=== PATIENT | male | born 1935 | race Caucasian/White ===

== ENCOUNTER 2016-12-19 11:16 | Emergency (ER) | payer MEDICARE, OTHER ==
[~2016-12-19] VITALS: Ht 172.7 cm; Wt 81.3 kg
[~2016-12-19 11:16] MED LIST: ACYC400T PO; ASPI-557 PO; CALC500T7 PO; DEXA4TAB PO; DONE5TAB PO; IPRA3AMP AEROSOL; OMEP40CA52 PO; POLY119P3 PO; QUET25TA PO; RANI150T7 PO; SERT50TA12 PO
[2016-12-19 11:20] VITALS: Ht 172.7 cm; Wt 81.3 kg
--- OUTSIDE RECORDS SUMMARY | 2016-12-19 11:21 | XMS REPORT | Continuity of Care Document ---
Author Author [facility] Organization [facility] Address Unknown Phone Unavailable Care Team Providers Care Gymnastic Coach Name Role Phone Primary Care Physician Unavailable Source Comments Some departments are not documenting in the electronic medical record. If you do not see the information that you expected, contact Release of Information in the Health Information Management department at [phone] for further assistance in locating additional records.[facility] Active Allergies and Adverse Reactions Not on File Current Medications Not on file Active Problems Not on file Social History Tobacco Use Types Packs/Day Years Used Date Never Assessed Plan of Care Health Maintenance Due Date Last Done Comments Physical (Comprehensive) 1942 Exam Pertussis Vaccine 1946 Tetanus Vaccine 01/31/1952 Shingles Vaccine 1995 Prevnar/Pneumovax (#1) 01/31/2000 Influenza Vaccine 05/31/2016 Results from Last 3 Months Not on file
--- OUTSIDE RECORDS SUMMARY | 2016-12-19 11:22 | XMS REPORT | Continuity of Care Document ---
Author Author [facility] Organization [facility] Address Unknown Phone Unavailable Allergies Active Description Code Type Severity Reaction Onset Reported/Identified Relationship to Patient Clinical Status Yes penicillins NKMA Unknown N/A 04/25/2015 Medications Problems Procedures Results Test Result Range Comprehensive Metabolic Panel (CMP) - 10/30/16 18:12 Albumin 3.3 g/dL 3.5-4.8 Alkaline Phosphatase 89 U/L 26-104 ALT (SGPT) 15 U/L 17-63 Anion Gap 12 NA 3-20 AST (SGOT) 19 U/L 15-41 Bilirubin Total 0.8 mg/dL 0.2-1.2 BUN 34 mg/dL 4-20 Calcium 8.4 mg/dL 8.6-10.0 Chloride 111 mEq/L 99-109 CO2 22 mEq/L 22-32 Creatinine 3.87 mg/dL 0.64-1.27 Globulin 2.4 g/dL 1.9-4.3 Glucose 111 mg/dL 70-100 Potassium 4.3 mEq/L 3.6-5.1 Protein 5.7 g/dL 6.1-7.9 Sodium 145 mEq/L 136-144 CBC With Platelet and Differential - 10/30/16 18:12 Absolute Basophils 0.01 10*3/uL 0.00- 0.20 Absolute Eosinophils 0.04 10*3/uL 0.00- 0.50 Absolute Lymphocytes 0.64 10*3/uL 0.80- 3.30 Absolute Monocytes 0.37 10*3/uL 0.30- 1.00 Absolute Neutrophils 1.08 10*3/uL 1.90- 7.00 Basophils 1 % 0-2 Differential Scanned Slide NA Eosinophils 2 % 0-4 HCT 27.1 % 42.0-52.0 HGB 8.6 g/dL 14.0-18.0 Immature Granulocytes 0.9 % 0.0-1.0 Lymphocytes 30 % 20-46 MCH 33.7 pg 27.0-32.0 MCHC 31.7 g/dL 32.0-36.0 MCV 106.3 fL 82.0-99.0 Monocytes 17 % 4-11 Neutrophils 50 % 51-75 Nucleated RBC Automated 0.0 /100 WBC Platelet Count 75 K/uL 150-400 RBC 2.55 10*6/uL 4.60-6.20 RDW 15.2 % 11.5-14.5 Schistocytes Occasional NA Tear Drop Cells Occasional NA WBC 2.2 K/uL 4.8-10.8 eGFR - 10/30/16 18:12 eGFR 15 NA >60 Magnesium - 10/30/16 18:12 Magnesium 2.2 mg/dL 1.8-2.5 Phosphorus - 10/30/16 18:12 Phosphorus 5.1 mg/dL 2.4-4.7 Troponin - 10/30/16 18:12 Troponin <0.05 ng/mL <0.06 Urinalysis with reflex microscopic - 10/30/16 20:02 Appearance Clear NA Bilirubin Negative NA Negative Blood Negative NA Negative Color Straw NA Glucose, Urine Negative Negative Ketones Negative Negative Leukocyte Esterase Negative NA Negative Nitrites Negative NA Negative pH 7.0 NA 5.0-8.0 Protein Pos 1+ NA Negative Specific [place] 1.010 NA 1.003-1.030 UA Collection type Clean Catch NA Urobilinogen Negative mg/dL <1.0 Urine Microscopic - 10/30/16 20:02 Bacteria None Seen NA Epithelial Cells None Seen /HPF RBC, Urine 0 /HPF 0-2 WBC, Urine 0 /HPF 0-4 Sodium Random Urine - 10/30/16 20:02 Sodium Random Urine 92 mEq/L Creatinine Random Urine - 10/30/16 20:02 Creatinine Random Urine 80 mg/dL Encounters ACCT No. Visit Date/Time Discharge Status Pt. Type Provider Facility Loc./Unit Complaint [id number] 05/04/2015 08:58:00 2014 23:59:00 DIS Outpatient Swapnil Osborn [facility] ENT RCK 3 WKS THROAT AND EARS [id number] 04/25/2015 13:33:00 2014 23:59:00 DIS Outpatient Fracisco Vázquez [facility] ENT Csore throat [id number] 04/11/2015 11:29:00 2014 23:59:00 DIS Outpatient Hilaria Perla [facility] Audio Hilaria - Medicare - [place] [id number] 04/11/2015 09:53:00 2014 23:59:00 DIS Outpatient Swapnil Osborn [facility] ENT RIGHT EAR EFFUSION AND SORE THROAT WITH VOCALS [id number] 10/30/2016 17:28:00 Document Registration
--- OUTSIDE RECORDS SUMMARY | 2016-12-19 11:22 | XMS REPORT | Referral Summary ---
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 Discharge Disposition: 01-Home or Self Care Attending Physician: Maxx Hart MD Admitting Physician: Maxx Hart MD Vital Signs Most recent to 1 oldest [Reference Range]: Temperature Oral 36.7 degC [35.8-37.3 degC] (10/30/16 5:32 PM) Peripheral Pulse 99 bpm Rate [60-100 bpm] (10/30/16 9:56 PM) Heart Rate Monitored 82 bpm [60-100 bpm] (10/30/16 9:15 PM) Respiratory Rate 18 br/min [14-20 br/min] (10/30/16 9:56 PM) Blood Pressure 169/114 mmHg [90-140/60-90 mmHg] *HI* (10/30/16 9:56 PM) Mean Arterial 143 mmHg Pressure, Cuff (10/30/16 9:15 PM) SpO2 100 % (10/30/16 9:56 PM) Problem List Condition Effective Dates Status Health Status Informant Multiple Active patient myeloma(Confirmed) Allergies, Adverse Reactions, Alerts Substance Reaction Severity Status penicillins Unknown Active Medications ACYCLOVIR 400 MG TABS 0 Refill(s) Start Date: 04/11/15 Status: Ordered Radha Oral, 0 Refill(s) Start Date: 04/25/15 Status: Ordered Aspir 81 81 mg, Oral, Daily, 0 Refill(s) Start Date: 10/12/15 Status: Ordered DEXAMETHASONE 4 MG TABS 0 Refill(s) Start Date: 04/11/15 Status: Ordered OMEPRAZOLE 40 MG CPDR 0 Refill(s) Start Date: 04/11/15 Status: Ordered omeprazole 40 mg oral delayed release capsule See Instructions, TAKE 1 CAPSULE BY MOUTH TWICE DAILY, # 60 caps, 11 Refill(s), eRx: [id number], TAKE 1 CAPSULE BY MOUTH TWICE DAILY Start Date: 11/14/15 Status: Ordered POMALYST 1 MG CAPS 0 Refill(s) Start Date: 04/11/15 Status: Ordered Results Hematology Most recent to 1 oldest [Reference Range]: WBC [4.8-10.8 2.2 10*3/uL 10*3/uL] *LOW* (10/30/16 6:12 PM) RBC [4.60-6.20] 2.55 *LOW* (10/30/16 6:12 PM) Hgb [14.0-18.0 8.6 gm/dL gm/dL] *LOW* (10/30/16 6:12 PM) Hct [42.0-52.0 %] 27.1 % *LOW* (10/30/16 6:12 PM) MCV [82.0-99.0 fL] 106.3 fL *HI* (10/30/16 6:12 PM) MCH [27.0-32.0 pg] 33.7 pg *HI* (10/30/16 6:12 PM) MCHC [32.0-36.0 31.7 gm/dL gm/dL] *LOW* (10/30/16 6:12 PM) RDW [11.5-14.5 %] 15.2 % *HI* (10/30/16 6:12 PM) Platelet [150-400 75 10*3/uL 10*3/uL] *LOW* (10/30/16 6:12 PM) Immature 0.9 % Granulocytes (10/30/16 6:12 PM) [0.0-1.0 %] Neutrophils [51-75 50 % %] *LOW* (10/30/16 6:12 PM) Lymphocytes [20-46 30 % %] (10/30/16 6:12 PM) Monocytes [4-11 %] 17 % *HI* (10/30/16 6:12 PM) Eosinophils [0-4 %] 2 % (10/30/16 6:12 PM) Basophils [0-2 %] 1 % (10/30/16 6:12 PM) Neutro Absolute 1.08 [1.90-7.00] *LOW* (10/30/16 6:12 PM) Lymph Absolute 0.64 [0.80-3.30] *LOW* (10/30/16 6:12 PM) [place] Absolute 0.37 [0.30-1.00] (10/30/16 6:12 PM) Eos Absolute 0.04 [0.00-0.50] (10/30/16 6:12 PM) Baso Absolute 0.01 [0.00-0.20] (10/30/16 6:12 PM) Tear Cell Occasional *ABN* (10/30/16 6:12 PM) Schistocyte Occasional *ABN* (10/30/16 6:12 PM) Nucleated RBC 0.0 /100 WBC Automated [0 /100 (10/30/16 6:12 PM) WBC] Differential Scanned Slide (10/30/16 6:12 PM) Chemistry Most recent to 1 oldest [Reference Range]: Sodium Lvl [136-144 145 mEq/L mEq/L] *HI* (10/30/16 6:12 PM) Potassium Lvl 4.3 mEq/L [3.6-5.1 mEq/L] (10/30/16 6:12 PM) Chloride [99-109 111 mEq/L mEq/L] *HI* (10/30/16 6:12 PM) CO2 [22-32 mEq/L] 22 mEq/L (10/30/16 6:12 PM) AGAP [3-20] 12 (10/30/16 6:12 PM) BUN [4-20 mg/dL] 34 mg/dL *HI* (10/30/16 6:12 PM) Glucose Lvl [70-100 111 mg/dL mg/dL] *HI* (10/30/16 6:12 PM) Creatinine Lvl 3.87 mg/dL [0.64-1.27 mg/dL] *HI* (10/30/16 6:12 PM) eGFR [>60] 15 1 *ABN* (10/30/16 6:12 PM) Calcium Lvl 8.4 mg/dL [8.6-10.0 mg/dL] *LOW* (10/30/16 6:12 PM) Albumin Lvl [3.5-4.8 3.3 gm/dL gm/dL] *LOW* (10/30/16 6:12 PM) Total Protein 5.7 gm/dL [6.1-7.9 gm/dL] *LOW* (10/30/16 6:12 PM) Globulin [1.9-4.3 2.4 gm/dL gm/dL] (10/30/16 6:12 PM) ALT [17-63 U/L] 15 U/L *LOW* (10/30/16 6:12 PM) AST [15-41 U/L] 19 U/L (10/30/16 6:12 PM) Alk Phos [26-104 89 U/L U/L] (10/30/16 6:12 PM) Bili Total [0.2-1.2 0.8 mg/dL 2 mg/dL] (10/30/16 6:12 PM) Magnesium Lvl 2.2 mg/dL [1.8-2.5 mg/dL] (10/30/16 6:12 PM) Phosphorus [2.4-4.7 5.1 mg/dL 3 mg/dL] *HI* (10/30/16 6:12 PM) Troponin [<0.06 <0.05 ng/mL ng/mL] (10/30/16 6:12 PM) 1Result Comment: Multiply eGFR results by 1.21 for race. 2Result Comment: Naproxen, specifically the metabolite O-desmethylnaproxen, may cause spurious elevation in Total Bilirubin levels. 3Result Comment: High dosages of liposomal Amphotericin B (AmBisome) therapy or other drug preparations that use a liposomal envelope to facilitate drug delivery may cause falsely elevated results for phosphorus. Urinalysis Most recent to 1 oldest [Reference Range]: UA Color Straw (10/30/16 8:02 PM) UA Appear Clear (10/30/16 8:02 PM) UA pH [5.0-8.0] 7.0 (10/30/16 8:02 PM) UA Leuk Est Negative [Negative] (10/30/16 8:02 PM) UA Nitrite Negative [Negative] (10/30/16 8:02 PM) UA Protein Pos 1+ [Negative] *ABN* (10/30/16 8:02 PM) UA Glucose Negative [Negative] (10/30/16 8:02 PM) UA Ketones Negative [Negative] (10/30/16 8:02 PM) UA Urobilinogen Negative [<1.0] (10/30/16 8:02 PM) UA Bili [Negative] Negative (10/30/16 8:02 PM) UA Blood [Negative] Negative (10/30/16 8:02 PM) UA Spec Grav 1.010 [1.003-1.030] (10/30/16 8:02 PM) Type Clean Catch (10/30/16 8:02 PM) UA WBC [0-4] 0-2 (10/30/16 8:02 PM) UA RBC [0-2] 0-2 (10/30/16 8:02 PM) Epithelial Cells None Seen (10/30/16 8:02 PM) UA Bacteria None Seen (10/30/16 8:02 PM) Immunizations No data available for this section Procedures Procedure Date Related Diagnosis Body Site Aspiration Bone Marrow1 10/12/15 Biopsy Bone Marrow2 10/12/15 Bone marrow transplant clinic 12/10/12 Prostate 2003 Vasectomy 1960 Tonsillectomy 194 Appendectomy Colonoscopy Gallbladder Skin cancer 1auto-populated from documented surgical case 2auto-populated from documented surgical case Social History Social History Type Response Smoking Status Never smoker Assessment and Plan No data available for this section
--- OUTSIDE RECORDS SUMMARY | 2016-12-19 11:22 | XMS REPORT | Continuity of Care Document ---
Author Author [facility] Organization [facility] Address Unknown Phone Unavailable Support Name Relationship Address Phone AQUILINO DOBBINS MD Caregiver [address] [place] [address] [place] [address] Unavailable AQUILINO DOBBINS MD Caregiver [address] [place] [address] [place] [address] Unavailable MORENA ESPOSITO MD Caregiver [address] [place] [address] Unavailable VINI CABEZAS Caregiver [address] [place] [address] Unavailable CATHY CABRERA MD Caregiver [address] [place] [address] [place] [address] Unavailable VEL KELLY COUSIN Next Of Kin Unknown [phone] Insurance Providers Guarantor Maggy Mendoza Address [address] [place] [address] Email [email or web address] Payer Medicare Policy Number [id number] Subscriber's Name Maggy Mendoza Relationship 18 Self Payer Other A Insurance Policy Number [id number] Subscriber's Name Maggy Mendoza Relationship 18 Self Group Number [id number] Advance Directives Directive Response Recorded Date/Time Advanced Directives Type None 10/10/16 9:55am Ordered Resuscitation Status Full Code 10/10/16 11:37am Resuscitation Documents on File Y horace 10/14/16 7:02pm DPOA for Healthcare Only Y daughter 10/14/16 7:02pm Living Will Yes 10/14/16 7:02pm Problems Active Problems Medical Problem Onset Date Status Acute kidney failure Unknown Acute Dementia Unknown Chronic Fever Unknown Resolved Multiple myeloma Unknown Chronic Non-ST elevation myocardial infarction (NSTEMI) due to mismatch of myocardial oxygen supply and demand Unknown Acute Pancytopenia Unknown Acute Pulmonary edema Unknown Resolved Respiratory failure with hypoxia ~09/2016 Resolved Shock liver Unknown Acute Past Problems Medical Problem Onset Date Septic shock Unknown Medications Current Home Medications Medication Dose Units Route Directions Days Qty Instructions Start Date Acyclovir 400 Mg Tablet 400 Mg Oral Daily for Herpes 10/10/16 Aspirin (Aspir 81) 81 Mg Tablet.dr 81 Mg Oral Daily 10/10/16 Calcium Carbonate (Tums) 200 Mg Tab.chew 400 Mg Oral Daily Dexamethasone 4 Mg Tablet 2 Tab Oral Weekly for Mm 2 Tablet Donepezil Hcl (Aricept) 5 Mg Tablet 5 Mg Oral Bedtime 10/10/16 Ipratropium/Albuterol Sulfate (Iprat-Albut 0.5-3(2.5) Mg/3 Ml) 3 Ml Ampul.neb 3 Ml Aerosol Tx. Every 4 Hours as needed for Shortness Of Air/Wheezing 1 Box 10/16/16 Omeprazole 40 Mg Capsule.dr 4 Mg Oral Before Breakfast 10/10/16 Polyethylene Glycol 3350 (Miralax) 119 Gm Powder 17 G Oral Daily 10/10/16 Quetiapine Fumarate (Seroquel) 25 Mg Tablet 12.5 Mg Oral Three Times A Day 10/10/16 Ranitidine Hcl 150 Mg Tablet 150 Mg Oral Bedtime 30 Tablet Take 1 tablet, by mouth, 1 time a day (at BEDTIME). 10/16/16 Sertraline Hcl (Sertraline) 50 Mg Tablet 75 Mg Oral Bedtime 10/10 Past Home Medications Medication Directions Ordered Status Ranitidine Hcl 300 Mg Capsule, 300 Mg Oral Every Evening 10/10/16 Discontinued Social History Social History Problem Response Recorded Date/Time Onset Date Status Reason for Hospitalization Septic shock 10/16/2016 4:14pm Not Applicable Not Applicable Has the pt used tobacco in the last 12 months No 10/10/2016 3:38pm Not Applicable Not Applicable Query Response Start Date Stop Date Smoking Status Never smoker Hospital Discharge Instructions Instructions: Care Instructions: Reason for Hospitalization: Septic shock I was in the hospital because (patient own words): confused Discharge Diet: Regular Discharge Activity: As tolerated Follow Up Appointments: Dr Mcnamara on 10/19 Dr Esposito on 10/22 Dr Live in 1 week Pending Lab / Results: No Pending Lab Wound/Incision Care: n/a Pain Management/Treatment: Tylenol as needed Expected Signs/Symptoms: Improvement of functional status Notify Physician If: Temp >100.4 During Business Hours:: Nursing staff at [facility] After Business Hours:: Nursing staff at [facility] Condition at time of discharge: Good Plan of Care Discharge Date 10/16/16 4:30pm Disposition 03 TO [facility] NOT [facility] (SNF) Instructions/Education Provided Septic Shock Prescriptions See Medication Section Additional Instructions/Education Ranitidine decreased due to your kidney status (need less with the creatinine increased). Care Plan and Goals See Discharge Instructions Section Functional Status Query Response Date Recorded Mobility Status Transfer w/assist October 16, 2016 4:14pm Assistive Devices None October 16, 2016 4:14pm Activity Limitations Weakness October 16, 2016 4:14pm Feeding Ability Assist October 16, 2016 4:14pm Toileting Ability Assist October 16, 2016 4:14pm Grooming Ability Assist October 16, 2016 4:14pm Dressing Ability Assist October 16, 2016 4:14pm Driving Ability Dependent October 16, 2016 4:14pm Housework Ability Dependent October 16, 2016 4:14pm Meal Preparation Ability Dependent October 16, 2016 4:14pm Stair Climbing Ability Dependent October 16, 2016 4:14pm Ability to complete ADL's impeded by Change in Behavior Impaired Mobility Change in Cognition October 16, 2016 4:14pm Cognitive/Perceptual Impairments Chronic confusion October 16, 2016 4:14pm Visual Assistive Devices Glasses October 13, 2016 1:28pm Hearing Assistive Devices Left hearing aid Right hearing aid October 13, 2016 1:28pm Preferred Method of Learning Reading October 13, 2016 1:28pm Allergies, Adverse Reactions, Alerts Allergen Type Severity Reaction Status Last Updated Penicillin Allergy Unknown Active 10/10/16 Immunizations Query Response on File Recorded Date/Time Hx Influenza Vaccination Y 07/201610/10/16 1:41pm Hx Influenza Vaccination Y 07/201610/10/16 1:41pm Vital Signs Acute Vital Signs Vital Response Date/Time Temperature (Fahrenheit) 97.9 deg F (96.8 - 99.1) 10/16/2016 7:40am Temperature (Calculated Celsius) 36.85211 degrees C (36.0 - 37.3) 10/16/2016 7:40am Pulse Rate (adult) 73 bpm (60 - 100) 10/16/2016 10:36am Respiratory Rate 18 breaths/min (10 - 20) 10/16/2016 10:36am O2 Sat by Pulse Oximetry 93 % (90 - 100) 10/16/2016 10:36am Oxygen Delivery Method Room Air 10/15/2016 9:21pm Oxygen Delivery Method Room Air 10/16/2016 10:36am Oxygen Flow Rate 1.00 L/min 10/15/2016 7:57am Blood Pressure 145/80 mm Hg 10/16/2016 10:36am Blood Pressure Source Automatic Cuff 10/16/2016 10:36am Height (Feet) 5 feet 10/16/2016 2:46pm Height (Inches) 11.00 inches 10/16/2016 2:46pm Weight (Kilograms) 85.100 kg 10/16/2016 10:22am Body Mass Index (BMI) 26.3 10/10/2016 1:39pm Results Laboratory Results Test Name Result Units Flags Reference Collection Date/Time Result Date/ Time Comments White Blood Count 7.1 T/MM3 4.5-11.0 10/16/2016 4:10/16/2016 5: 17am Red Blood Count 2.52 M/MM3 L 4.50-5.90 10/16/2016 4:10/16/2016 5: 17am Hemoglobin 8.4 GM/DL L 13.5-17.5 10/16/2016 4:10/16/2016 5:17am Hematocrit 27.0 % L 41-53 10/16/2016 4:10/16/2016 5:17am Mean Corpuscular Volume 107.1 UM3 H 80-100 10/16/2016 4:10/16/2016 5:17am Mean Corpuscular Hemoglobin 33.3 UUG 26-34 10/16/2016 4:2016 5:17am Mean Corpuscular Hemoglobin Concent 31.1 GM/DL 31-37 10/16/2016 4:10/16/2016 5:17am RDW Standard Deviation 55.7 FL H 36.9-50.2 10/16/2016 4:10/16/2016 5:17am Platelet Count 45 T/MM3 L 130-400 10/16/2016 4:10/16/2016 5:17am Mean Platelet Volume 12.0 UM3 9.4-12.4 10/10/2016 10:10/10/2016 10 :32am Neutrophils (%) (Auto) 73.8 % H 33-66 10/10/2016 10:10/10/2016 10: 32am Lymphocytes (%) (Auto) 15.8 % L 23-45 10/10/2016 10:10/10/2016 10: 32am Monocytes (%) (Auto) 6.7 % 0-9.0 10/10/2016 10:10/10/2016 10:32am Eosinophils (%) (Auto) 1.0 % 0-4 10/10/2016 10:10/10/2016 10:32am Basophils (%) (Auto) 0.0 % 0-2 10/10/2016 10:10/10/2016 10:32am Immature Granulocyte % (Auto) 2.7 % H 0.0-0.5 10/10/2016 10:2016 10:32am Absolute Neutrophils (auto) 2.2 T/MM3 1.8-7.7 10/10/2016 10:2016 10:32am Absolute Lymphocytes (auto) 0.5 T/MM3 L 1-4.8 10/10/2016 10:2016 10:32am Absolute Monocytes (auto) 0.2 T/MM3 0-0.8 10/10/2016 10:2016 10:32am Absolute Eosinophils (auto) 0.0 T/MM3 0-0.5 10/10/2016 10:2016 10:32am Absolute Basophils (auto) 0.0 T/MM3 0-0.2 10/10/2016 10:2016 10:32am Absolute Immature Granulocyte (auto 0.08 T/MM3 H 0.00-0.03 10/10/2016 10: 10/10/2016 10:32am Neutrophils % (Manual) 78.0 % H 33-66 10/16/2016 4:10/16/2016 6: 16am Band Neutrophils % 2.0 % 0-6 10/16/2016 4:10/16/2016 6:16am Lymphocytes % (Manual) 15.0 % L 23-45 10/16/2016 4:10/16/2016 6: 16am Monocytes % (Manual) 5.0 % 0-9.0 10/16/2016 4:10/16/2016 6:16am Band Neutrophils # 0.1 T/MM3 10/16/2016 4:28am 10/16/2016 6:16am Absolute Neutrophils (Manual) 5.5 T/MM3 1.8-7.7 10/16/2016 4:28am 10/16 6:16am Lymphocytes # (Manual) 1.1 T/MM3 1-4.8 10/16/2016 4:28am 10/16/2016 6: 16am Monocytes # (Manual) 0.4 T/MM3 0-0.8 10/16/2016 4:28am 10/16/2016 6: 16am Red Cell Morphology Comment ABNORMAL 10/16/2016 4:28am 10/16/2016 6 :16am Anisocytosis 1+ 10/16/2016 4:28am 10/16/2016 6:16am Poikilocytosis 1+ 10/16/2016 4:28am 10/16/2016 6:16am Ovalocytes 1+ 10/15/2016 4:56am 10/15/2016 6:14am Tear Drop Cells 1+ 10/15/2016 4:56am 10/15/2016 6:14am Schistocytes 1+ 10/14/2016 5:19am 10/14/2016 6:10am Icterus Index < 2 0-7 10/16/2016 4:10/16/2016 5:29am Chemistry Specimen Hemolysis 25 0-25 10/16/2016 4:2810/16/2016 5: 29am 0-25: Specimen Exhibited No Hemolysis. Turbidity < 20 0-20 10/16/2016 4:10/16/2016 5:29am Sodium Level 141 MEQ/L 134-144 10/16/2016 4:10/16/2016 5:29am Potassium Level 3.8 MEQ/L 3.6-5 10/16/2016 4:10/16/2016 5:29am Chloride Level 105 MEQ/L 98-107 10/16/2016 4:10/16/2016 5:29am Carbon Dioxide Level 26 MEQ/L 22-30 10/16/2016 4:2810/16/2016 5: 29am Anion Gap 10 MEQ/L 5-15 10/16/2016 4:10/16/2016 5:29am Blood Urea Nitrogen 67.0 MG/DL *H 9-20 10/16/2016 4:10/16/2016 5: 31am Creatinine 3.6 MG/DL H 0.8-1.5 10/16/2016 4:10/16/2016 5:29am BUN/Creatinine Ratio 19 RATIO 6-26 10/16/2016 4:10/16/2016 5:29am Glomerular Filtration Rate Calc 16 10/16/2016 4:10/16/2016 5: 29am Glucose Level 135 MG/DL H 75-110 10/16/2016 4:10/16/2016 5:29am Calculated Osmolality 292 MOSM/KG H 261-280 10/16/2016 4:2016 5:29am Calcium Level 7.5 MG/DL L 8.4-10.2 10/16/2016 4:10/16/2016 5:29am Phosphorus Level 3.9 MG/DL 2.5-4.5 10/14/2016 5:19am 10/14/2016 5:58am Total Bilirubin 0.70 MG/DL 0.20-1.30 10/15/2016 4:56am 10/15/2016 5: 35am Alkaline Phosphatase 80 U/L 38-126 10/15/2016 4:56am 10/15/2016 5:35am Total Protein 5.2 G/DL L 6.3-8.2 10/15/2016 4:56am 10/15/2016 5:35am Albumin 3.3 G/DL L 3.5-5.0 10/15/2016 4:56am 10/15/2016 5:35am Globulin 1.9 G/DL L 2.4-3.6 10/15/2016 4:56am 10/15/2016 5:35am Albumin/Globulin Ratio 1.7 RATIO 1.1-2.2 10/15/2016 4:56am 10/15/2016 5 :35am Aspartate Amino Transf (AST/SGOT) 52 U/L D 17-59 10/15/2016 4:56am 2016 5:36am Alanine Aminotransferase (ALT/SGPT) 49 U/L 21-72 10/15/2016 4:56am 5:35am Troponin I 0.357 ng/ml H 0-0.12 10/11/2016 8:08pm 10/11/2016 8:43pm Troponin values greater than 0.120 ng/ml are considered a critical value. Troponin values with a difference of 55% increase from orginal troponin value represent a true biological DELTA value. (%increase Calc=Orginal Troponin value, divided by subsequent Troponin value, multiplied by 100) [id number]-Type Natriuretic Peptide 5980 PG/ML H 0-175 10/14/2016 5:10/14/2016 5:48am Rule in cut points: <50 years old=450; 50-75 years old=900; >75 years old=1800; When utilizing ProBNP rule-in cut points, adjustment for impaired renal function is typically not required. Magnesium Level 2.1 MG/DL 1.6-2.3 10/14/2016 5:10/14/2016 5:39am Uric Acid 8.6 MG/DL H 3.5-8.5 10/14/2016 5:10/14/2016 10:31am Plasma Lactate 1.7 MMOL/L 0.6-2.2 10/11/2016 1:32am 10/11/2016 1:52am Procalcitonin 3.69 NG/ML *H 10/13/2016 5:06am 10/13/2016 6:49am PCT </ =0.5 ng/mL - sepsis not likely; PCT >0.5 and </=2 ng/mL - sepsis possible; PCT >2 ng/mL - sepsis likely; PCT >/=10 ng/mL - systemic inflammatory response - sepsis or septic shock highly indicated. Random Vancomycin Level 14.93 UG/ML 0-40 10/13/2016 2:52pm 10/13/2016 3 :23pm Immunoglobulin G < 270.00 MG/DL L 700-1600 10/14/2016 5:10/14/2016 10:21am Immunoglobulin A < 40.00 MG/DL L 70-400 10/14/2016 5:10/14/2016 10: 21am Immunoglobulin M < 25.00 MG/DL L 40-230 10/14/2016 5:10/14/2016 10: 21am Oxygen Delivery Method (LAB) SIMPLE MASK, LITERS 10/11/2016 1:32am 10/11/2016 1:46am Venous Blood pH 7.380 7.31-7.41 10/11/2016 1:32am 10/11/2016 1:46am Venous Blood Partial Pressure CO2 40 MMHG 40-52 10/11/2016 1:32am 10/11 1:46am Venous Blood Partial Pressure O2 50 MMHG 40-52 10/11/2016 1:32am 2016 1:46am Venous Blood HCO3 24 MEQ/L 22-26 10/11/2016 1:32am 10/11/2016 1:46am Venous Blood Total Carbon Dioxide 24.9 MEQ/L 10/11/2016 1:32am 2016 1:46am Venous Blood Base Excess -1.3 MMOL/L -2.0-2.0 10/11/2016 1:32am 2016 1:46am Venous Blood Oxygen Saturation 84.0 % 10/11/2016 1:32am 10/11/2016 1: 46am Blood Gas Oxygen Liter Flow 9.0 10/11/2016 1:32am 10/11/2016 1: 46am Adenovirus (PCR) NEGATIVE NEGATIVE 10/10/2016 1:34pm 10/10/2016 3: 01pm Coronavirus Type 229E (PCR) NEGATIVE NEGATIVE 10/10/2016 1:34pm 10/10 3:01pm Coronavirus Type HKU1 (PCR) NEGATIVE NEGATIVE 10/10/2016 1:34pm 10/10 3:01pm Coronavirus Type NL63 (PCR) NEGATIVE NEGATIVE 10/10/2016 1:34pm 10/10 3:01pm Coronavirus Type OC43 (PCR) NEGATIVE NEGATIVE 10/10/2016 1:34pm 10/10 3:01pm Human Metapneumovirus (PCR) NEGATIVE NEGATIVE 10/10/2016 1:34pm 10/10 3:01pm Enterovirus/Rhinovirus (PCR) NEGATIVE NEGATIVE 10/10/2016 1:34pm 07/2017 3:01pm Influenza Virus Type A (PCR) NEGATIVE NEGATIVE 10/10/2016 1:34pm 07/2017 3:01pm Influenza Virus Type B (PCR) NEGATIVE NEGATIVE 10/10/2016 1:34pm 07/2017 3:01pm Parainfluenza Type 1 (PCR) NEGATIVE NEGATIVE 10/10/2016 1:34pm 2016 3:01pm Parainfluenza Type 2 (PCR) NEGATIVE NEGATIVE 10/10/2016 1:34pm 2016 3:01pm Parainfluenza Type 3 (PCR) NEGATIVE NEGATIVE 10/10/2016 1:34pm 2016 3:01pm Parainfluenza Type 4 (PCR) NEGATIVE NEGATIVE 10/10/2016 1:34pm 2016 3:01pm Respiratory Syncytial Virus (PCR) NEGATIVE NEGATIVE 10/10/2016 1:34pm 10/10/2016 3:01pm Bordetella parapertussis DNA (PCR) NEGATIVE NEGATIVE 10/10/2016 1: 34pm 10/10/2016 3:01pm Chlamydia pneumoniae DNA (PCR) NEGATIVE NEGATIVE 10/10/2016 1:34pm 3:01pm Mycoplasma pneumoniae (PCR) NEGATIVE NEGATIVE 10/10/2016 1:34pm 10/10 3:01pm Urine Collection Type MARY INDWELLING 10/14/2016 11:28am 2016 11:50am Urine Color YELLOW YELLOW 10/14/2016 11:28am 10/14/2016 11:50am Urine Turbidity CLEAR CLEAR 10/14/2016 11:28am 10/14/2016 11:50am Urine Specific [place] 1.010 L 1.015-1.025 10/14/2016 11:28am 2016 11:50am Urine pH 5.5 5.0-8.0 10/14/2016 11:28am 10/14/2016 11:50am Urine Leukocyte Esterase NEGATIVE NEGATIVE 10/14/2016 11:28am 2016 11:50am Urine Nitrite NEGATIVE NEGATIVE 10/14/2016 11:28am 10/14/2016 11: 50am Urine Protein TRACE A NEGATIVE 10/14/2016 11:28am 10/14/2016 11:50am Urine Glucose (UA) NEGATIVE NEGATIVE 10/14/2016 11:28am 10/14/2016 11 :50am Urine Ketones NEGATIVE NEGATIVE 10/14/2016 11:28am 10/14/2016 11: 50am Urine Urobilinogen 0.2 EU/DL NORMAL 10/14/2016 11:28am 10/14/2016 11: 50am Urine Bilirubin NEGATIVE NEGATIVE 10/14/2016 11:28am 10/14/2016 11: 50am Urine Blood 3+ A NEGATIVE 10/14/2016 11:28am 10/14/2016 11:50am Urine WBC NONE SEEN /HPF 0-5 10/14/2016 11:28am 10/14/2016 11:58am Urine RBC 5-10 /HPF H 0-3 10/14/2016 11:28am 10/14/2016 11:58am Urine Squamous Epithelial Cells 0-5 10/10/2016 10:26am 10/10/2016 10:44am Urine Bacteria NEGATIVE NEGATIVE 10/14/2016 11:28am 10/14/2016 11: 58am Urine Amorphous Urates FEW 10/14/2016 11:28am 10/14/2016 11:58am Urine Culture Indicated CULT NOT INDICATED 10/14/2016 11:28am 10/14 11:58am Serum Total Protein 4.7 g/dL L 6.0-7.6 10/15/2016 4:50am 10/15/2016 1: 49pm Immunoelectrophoresis, no IMQ performed at [facility], [address] [place] [address] Fringe Weaver Shana Fung DO Free Arkoma/Lambda Light Chain Ratio >1000 H 10/15/2016 4:56am 2016 1:48pm Reference Range: 0.2600-1.65 Test Performed by: [place] [address] Control Technician: Timmy Nguyen II, M.D., Ph.D. Immunoglobulin Free Light Chains, Serum performed at [facility], [address] [place] [address] Fringe Weaver Patrick Archer MD Free Arkoma Light Chains 343 mg/dL H 10/15/2016 4:56am 10/16/2016 1: 48pm Reference Range: 0.3300-1.94 Free Lambda Light Chains 0.1510 mg/dL L 10/15/2016 4:56am 10/16/2016 1 :48pm Reference Range: 0.5700-2.63 Microbiology Results Procedure Source Organism/Result Collection Date/Time Result Date/Time Result Status Blood Culture Peripheral/Iv Start NO GROWTH AFTER 5 DAYS 10/10/2016 10: 25am 10/15/2016 10:28am Final Blood Culture Cath/Port/Line/Picc NO GROWTH AFTER 5 DAYS 10/10/2016 2:13pm 10/15/2016 2:44pm Final Name: MAGGY MENDOZA Unit #: [id number] : 1935 Sex: M Admit Date: 10/10/16 Loc / Svc: MED Discharge Date: DIAGNOSTIC IMAGING REPORT [id number]: ITS.REASON: sob, edema PROCEDURE: CHEST 2-VIEWS UPRIGHT (PA \T\ LAT) Encounter: Initial COMPARISON: October 12, 2016 FINDINGS: Right IJ port. Increasing small bilateral effusions. Slight worsening in right lower lobe airspace disease. No pneumothorax. Heart size and mediastinal contours are stable. Pulmonary vascularity remains mildly congested. Impression: Slight increase in small pleural effusions with stable mild pulmonary edema. . Procedures Procedure Status Date Provider(s) Mri brain stem w/o dye Completed 08/02/16 GADAVIST 10ML SDV - Contrast,Gadavist 10ml Completed 08/02/16 Mri brain stem w/o dye Completed 09/06/16 Encounters Encounter Location Arrival/Admit Date Discharge/Depart Date Attending Provider Discharged Inpatient [facility] 10/10/16 11:33am 10/16/16 4:30pm AQUILINO DOBBINS MD Registered Clinic [facility] 09/06/16 12:59pm VINI CABEZAS Registered [facility] 08/02/16 1:59pm SPENCER LAMB MD
[2016-12-19] MEDS ORDERED: NORMAL SALINE 1,000 ML IV ONE (11:45)
[2016-12-19] MEDS ORDERED: ACETAMINOPHEN 500 MG TABLET PO ONE (11:45)
--- NOTE | 2016-12-19 11:57 | NUR ---
RADIOLOGY PT TO RADIOLOGY BY CART AT THIS TIME.
--- OUTSIDE RECORDS SUMMARY | 2016-12-19 12:03 | XMS REPORT | Continuity of Care Document ---
Author Author [facility] Organization [facility] Address Unknown Phone Unavailable Care Team Providers Care Decator Operator Name Role Phone Primary Care Physician Unavailable Source Comments Some departments are not documenting in the electronic medical record. If you do not see the information that you expected, contact Release of Information in the Health Information Management department at [phone] for further assistance in locating additional records.[facility] Active Allergies and Adverse Reactions Not on [...]
--- OUTSIDE RECORDS SUMMARY | 2016-12-19 12:04 | XMS REPORT | Continuity of Care Document ---
Author Author [facility] Organization [facility] Address Unknown Phone Unavailable Allergies [...] 5.0-8.0 Protein Pos 1+ NA Negative Specific [place] 1.010 NA 1.003-1.030 UA Collection type Clean [...] Status Pt. Type Provider Facility Loc./Unit Complaint [id number] 05/04/2015 08:58:00 2014 23:59:00 DIS Outpatient Swapnil Osborn [facility] ENT RCK 3 WKS THROAT AND EARS [id number] 04/25/2015 13:33:00 2014 23:59:00 DIS Outpatient Fracisco Vázquez [facility] ENT Csore throat [id number] 04/11/2015 11:29:00 2014 23:59:00 DIS Outpatient Hilaria Perla [facility] Audio Hilaria - Medicare - Irena [id number] 04/11/2015 09:53:00 2014 23:59:00 DIS Outpatient Swapnil Osborn [facility]NT RIGHT EAR EFFUSION AND SORE THROAT WITH VOCALS [id number] 10/30/2016 17:28:00 Document Registration
--- NOTE | 2016-12-19 12:09 | ERPDOC ---
Departure Disposition Decision Date: Dec 19, 2016 Disposition Decision Time: 14:43 Disposition: 01 DISCHARGED HOME, SELF-CARE Impression Impression Impression: Primary Impression: Altered awareness, transient Additional Impression: Fever Fever type: unspecified Qualified Codes: R50.9 - Fever, unspecified Severity: Mild Condition: Improved Seen By: Physician only Referrals: Dr. Christie I-2 Days Patient Instructions: Altered Mental Status (ED), Fever in Adults (ED) Problems/Meds/Labs Reviewed?: Yes Medications reviewed and manag: Yes Follow up care ordered?: Yes Mental Status: Alert, Oriented Scripts Doxycycline Monohydrate (Doxycycline Monohydrate) 100 Mg Capsule 1 CAP PO BID for 5 Days, #10 CAP 0 Refills Prov: KADEEM RON DO 12/19/16 HPI - General Medical General Chief Complaint: Altered Mental Status Stated Complaint: CONFUSION, WEAKNESS, LOW TEMP Time Seen by Provider: 11:41 Source: patient (Patient presents to the ER with the complaint of increased confusion. Patient is normally intermittantly confused, but this morning when a friend picked him up for his Oncologist appointment at 09:30, he seemed a little more confused than Normal, which was confirmed by the Oncolgy Nurses. Patient arrived in the ER alert and oriented to person, place, confused to exact time, but realized it was still morning. 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 NIH score 0 His friend who is with him in the ER states the patient is now Baseline) Exam Limitations: no limitations HPI - General Medical Occurred At: home Onset: Changing over time Duration: 4-6 hrs Date Last Known Well: Dec 16, 2016 Time Last Known Well: 11:30 Last Known Well Approximated: Yes Pain Scale: Now & Worst: 0/10 Modifying Factors: IMPROVES WITH: rest Associated Symptoms: fever/chills, malaise, other, DENIES: chest pain, cough, diaphoresis, headaches, loss of appetite, nausea/vomiting, rash, seizure, shortness of breath, syncope, weakness Hx of Similar Symptoms: No Allergies: Coded Allergies: Penicillins (Verified Allergy, Unknown, 12/19/16) Past History Patient Surgical History Bone marrow transplant Past Medical History Metabolic: cancer GI: GERD Psychological: dementia Surgical History General: other (Patient does not recall) Family History Family PMH: FOUND: other Vaccines Hx Influenza Vaccination: Yes (07/2016) Social History Smoking Status: Unknown if ever smoked Does patient use chewing tobac: No Second Hand Exposure: No Substance Use Type: does not use Alcohol Intake: none Marital Status: Single Housing: assisted living facility Service: No Current Occupational Status: retired Record Review Pertinent history updated: Yes Review of Systems Constitutional Constitutional: fever, DENIES: chills Eyes Lids/Accessories: DENIES: erythema, swelling ENMT Ears: DENIES: erythema, pain Balance: ataxia Sinuses: DENIES: rhinorrhea Mouth/Throat: DENIES: sore throat Cardiovascular Cardiac: DENIES: chest pain, dyspnea on exertion, orthopnea Rhythm/Rate: DENIES: tachycardia Pulmonary Respiratory: DENIES: cough, dyspnea, sputum GI Upper Abdomen: DENIES: nausea, pain, vomiting Lower Abdomen: DENIES: constipation, diarrhea, pain General: DENIES: dysuria Musculoskeletal General: DENIES: cramps, pain, weakness Integumentary Skin: DENIES: color change, itching, rash Neurological General: ataxia, poor coordination, DENIES: change in strength, headache, numbness, seizures, syncope, weakness Psychiatric Psychiatric: DENIES: anxiety, depression, nervousness Hematologic/Lymphatic Hematologic/Lymphatic: DENIES: anemia Allergic/Immunological Allergic/Immunoligical: DENIES: sneezing All other Systems All Other Systems: Reviewed and Negative Physical Exam General General Nourishment: well nourished, well developed, appears stated age, adult General Body Habitus: well groomed Vitals and Pain First Documented Vital Signs Date Time Temp Pulse Resp B/P Pulse Ox O2 Delivery O2 Flow Rate FiO2 12/19/16 11:20 100.0 81 18 145/63 95 Room Air Weight: Kilograms: Height (feet): 5 Height (inches): 11.00 Triage Pain Scale: RN VS reviewed by Provider: Yes Eyes (brief) Eyes Brief: found: EOMI, PERRL ENMT (brief) ENMT Brief: FOUND: TM clear, TM good light reflex, mucosa moist, NOT FOUND: pharnyx erythema Neck (brief) Neck: FOUND: trachea midline, NOT FOUND: adenopathy, nuchal rigidity, tenderness, tracheal deviation Respiratory (brief) Respiratory: FOUND: clear all collins, equal bilaterally Cardiovascular (brief) Cardiac: FOUND: regular rate, regular rhythm Capillary Refill: <2 sec Pulses: all distal extremities, equal, strong Abdomen (brief) Abdominal Brief: FOUND: bowel normo active x4, soft, NOT FOUND: distended, tender Lymphatic (brief) Lymphatic Brief: NOT FOUND: adenopathy Musculoskeletal (brief) Musculoskeletal Brief: NOT FOUND: spasm, tenderness Integumentary (brief) Integumentary Brief: FOUND: pink, warm Neurologic (brief) Neurological Brief: FOUND: CN w/o gross def to obs, motor-no gross deficits, sensory-no gross deficits Psychiatric (brief) Psychiatric Brief: FOUND: alert (Baseline per friend, alert to person and place , confused to time), attentive, normal affect, oriented Differential Diagnoses Considering: Acute WI, CVA, Encephalitis, Hypo/Hyperglycemia, Hypo/Hyperkalemia , Hypo/Hypernatremia, Intracranial Hemorrhage, Meningitis, Metabolic, Pneumonia , Psychosis, TIA, UTI, Other Progress Results/Orders Orders Procedure Category Date Status Time Ct Head W/O Contrast CT 12/19/16 Resulted Iv Lock (Ed Only) EDM 12/19/16 Transmitted 11:43 Cbc W/Manual LAB 12/19/16 Complete Differential 11:43 Cmp - Comprehensive LAB 12/19/16 Complete Metabolic Blood Culture ADAN 12/19/16 In Process 11:43 Lactate - Lactic Acid LAB 12/19/16 Complete Procalcitonin LAB 12/19/16 Complete 11:43 Troponin I W LAB 12/19/16 Complete Hemolysis Index EKG EKG 12/19/16 Taken Straight Cath EDM 12/19/16 Transmitted 11:43 Bladder Scanner (Ed) EDM 12/19/16 Transmitted 11:43 Chest 1 View RAD 12/19/16 Resulted Influenza A/B Screen LAB 12/19/16 Complete 11:43 Acetaminophen PHA 12/19/16 Complete (Tylenol Extra 11:45 Normal Saline (Normal PHA 12/19/16 Complete Saline Iv) 11:45 UA, LAB 12/19/16 Complete Dip&Micro(Complete) & 13:45 Heparin Flush PHA 12/19/16 Complete (Heparin Flush) 14:45 Doxycycline PHA 12/19/16 Complete (Vibramycin) 14:45 Lab Results Laboratory Tests Test 12/19/16 11:41 12/19/16 11:58 12/19/16 11:59 12/19/16 12:42 Glucometer 117mg/dL White Blood Count 2.8T/MM3 Red Blood Count 2.25M/MM3 Hemoglobin 7.9GM/DL Hematocrit 24.9% Mean Corpuscular Volume 110.7UM3 Mean Corpuscular Hemoglobin 35.1UUG Mean Corpuscular Hemoglobin Concent 31.7GM/DL RDW Standard Deviation 56.3FL Platelet Count 86T/MM3 Mean Platelet Volume 11.6UM3 Neutrophils % (Manual) 78.0% Band Neutrophils % 4.0% Lymphocytes % (Manual) 13.0% Monocytes % (Manual) 5.0% Absolute Neutrophils (Manual) 2.2T/MM3 Band Neutrophils # 0.1T/MM3 Lymphocytes # (Manual) 0.4T/MM3 Monocytes # (Manual) 0.1T/MM3 Poikilocytosis 2+ Anisocytosis 1+ Tear Drop Cells 2+ Ovalocytes 1+ Red Cell Morphology Comment Abnormal Turbidity < 20 Sodium Level 142MEQ/L Potassium Level 4.5MEQ/L Chloride Level 112MEQ/L Carbon Dioxide Level 23MEQ/L Anion Gap 7MEQ/L Blood Urea Nitrogen 38.0MG/DL Creatinine 3.5MG/DL Glomerular Filtration Rate Calc 17 BUN/Creatinine Ratio 11RATIO Glucose Level 115MG/DL Calculated Osmolality 283MOSM/KG Calcium Level 9.3MG/DL Total Bilirubin 0.70MG/DL Icterus Index < 2 Aspartate Amino Transf (AST/SGOT) 24U/L Alanine Aminotransferase (ALT/SGPT) 22U/L Alkaline Phosphatase 54U/L Troponin I 0.018ng/ml Total Protein 5.7G/DL Albumin 3.5G/DL Globulin 2.2G/DL Albumin/Globulin Ratio 1.6RATIO Plasma Lactate 2.0MMOL/L Procalcitonin 0.44NG/ML Chemistry Specimen Hemolysis 32 Influenza Type A Antigen Negative Influenza Type B Antigen Negative Test 12/19/16 13:45 Urine Collection Type Straight cath Urine Color Yellow Urine Turbidity Clear Urine pH 5.5 Urine Specific [place] 1.020 Urine Protein 1+ Urine Glucose (UA) Negative Urine Ketones Negative Urine Blood Trace-intact Urine Nitrite Negative Urine Bilirubin Negative Urine Urobilinogen 0.2EU/DL Urine Leukocyte Esterase Negative Urine RBC 0-1/HPF Urine WBC 0-1/HPF Urine Squamous Epithelial Cells 0-5 Urine Bacteria 1+ Urine Mucus Present Urine Culture Indicated Cult not indicated Medications Current ED Medications Acetaminophen 1000 mg 1,000 mg O ONCE PO Last administered on 12/19/16 12:26 ; Start 12/19/16 at 11:45; Stop 12/19/16 at 11:52; Status DC Sodium Chloride (Normal Saline IV) 1,000 ml @ 150 mls/hr Q6H40M ONCE IV Last administered on 12/19/16 12:25; Start 12/19/16 at 11:45; Stop 12/19/16 at 15:23 ; Status DC Heparin Sodium (Porcine) (Heparin Flush) 500 unit O ONCE IV Last administered on 12/19/16 14:53; Start 12/19/16 at 14:45; Stop 12/19/16 at 14:46; Status DC Doxycycline Hyclate (Vibramycin) 100 mg O ONCE PO Last administered on 14:53; Start 12/19/16 at 14:45; Stop 12/19/16 at 14:46; Status DC EKG EKG : Rate: 60-100 Rhythm: sinus [place]: normal QRS: normal Intervals: normal ST/T: non-specific changes Interpreted by: signing physician EKG ScImage/Picomm EKG interpreted in ScImage/Pic: No Xray Xray : Reason for Exam: Altered Mental status Xray: CXR Portable Interpretation: Abnormal, Reviewed Written Report (Mild CHF) CT Date CT Interpreted for [place]: Dec 19, [address] Interpreted for Stroke: 12:13 CT : Reason for Exam: Altered Mental Status CT: Head no contrast Interpretation: Normal, Reviewed Written Report KADEEM RON DO Dec 19, 2016 12:09
[2016-12-19 12:11] LABS: HCT - HEMATOCRIT 24.9 % (41-53); HGB - HEMOGLOBIN 7.9 GM/DL (13.5-17.5); MEAN CORPUSCULAR HGB 35.1 UUG (26-34); MEAN CORPUSCULAR HGB CONC(MCHC 31.7 GM/DL (31-37); MEAN CORPUSCULAR VOLUME 110.7 UM3 (80-100); MEAN PLATELET VOLUME 11.6 UM3 (9.4-12.4); RED BLOOD COUNT 2.25 M/MM3 (4.50-5.90); WBC - WHITE BLOOD COUNT 2.8 T/MM3 (4.5-11.0)
--- NOTE | 2016-12-19 12:12 | NUR ---
RETURN PT RETURNED FROM CT BY CART AT THIS TIME.
--- NOTE | 2016-12-19 12:17 | DI ---
Indication: ITS.REASON: altered mental status PROCEDURE: CT HEAD W/O CONTRAST: Encounter: Initial Comparison: October 10, 2016 Technique: Axial CT images through the head were performed without contrast. Iterative Reconstruction dose reducing technique was utilized. FINDINGS: Atrophy. The ventricles are unchanged. Old bilateral basal ganglia lacunar infarcts. There are scattered areas of low attenuation in the white matter which most likely represent changes from chronic microvascular ischemia. The brainstem, cerebellum, and cerebral hemispheres otherwise have a normal morphology and CT attenuation. There is no evidence of midline displacement. No hemorrhage, signs of acute territorial stroke, mass effect, mass lesions, or edema is evident. The visualized portions of the skull base, midface, and calvarium demonstrate no abnormality. The paranasal sinuses are well aerated and free of significant disease. The tympanic and mastoid cavities appear normal. IMPRESSION: No acute intracranial abnormality or hemorrhage. Stable head CT. .
--- NOTE | 2016-12-19 12:19 | DI ---
Indication: ITS.REASON: fever PROCEDURE: CHEST 1 VIEW: Encounter: Initial Comparison: October 14, 2016 Findings: Prior pleural effusions have almost completely resolved. Better aeration of the lower lobes. No new areas of airspace disease. No pneumothorax. Heart size and mediastinal contours are stable. Pulmonary vascular markings are slightly increased. Right IJ port catheter. Impression: Improved congestive failure with a minimal amount remaining. .
[2016-12-19 12:20] LABS: ALBUMIN 3.5 G/DL (3.5-5.0); ALBUMIN/GLOBULIN RATIO 1.6 RATIO (1.1-2.2); ALKALINE PHOSPHATASE 54 U/L (38-126); ALT (SGPT) 22 U/L (21-72); ANION GAP 7 MEQ/L (5-15); AST (SGOT) 24 U/L (17-59); BUN/CREATININE RATIO 11 RATIO (6-26); CALCIUM 9.3 MG/DL (8.4-10.2); CHLORIDE 112 MEQ/L (98-107); CO2 - CARBON DIOXIDE 23 MEQ/L (22-30); CREATININE 3.5 MG/DL (0.8-1.5); GLOMERULAR FILTRATION RATE 17; GLUCOSE 115 MG/DL (75-110); POTASSIUM 4.5 MEQ/L (3.6-5); SODIUM 142 MEQ/L (134-144); TOTAL PROTEIN 5.7 G/DL (6.3-8.2)
[2016-12-19 12:23] LABS: BAND NEUTROPHILS # 0.1 T/MM3; LYMPHOCYTES # (MANUAL) 0.4 T/MM3 (1-4.8); MONOCYTES # (MANUAL) 0.1 T/MM3 (0-0.8); NEUTROPHILS #(MANUAL)-ABSOLUTE 2.2 T/MM3 (1.8-7.7); TOTAL CELLS COUNTED 100 %
[2016-12-19 12:24] LABS: ANISOCYTOSIS 1+; OVALOCYTES 1+; POIKILOCYTOSIS 2+; TEAR DROP CELLS 2+
[2016-12-19] MEDS ORDERED: ACYC400T PO (12:25)
[2016-12-19] MEDS ORDERED: RANI150C4 PO (12:27)
--- NOTE | 2016-12-19 12:27 | NUR ---
LAB AT BEDSIDE FOR BLOOD CULTURES.
[2016-12-19] MEDS ORDERED: RISP0.5T14 PO (12:30)
[2016-12-19] MEDS ORDERED: CALC0.25 PO (12:30)
[2016-12-19] MEDS ORDERED: NYST30PO11 TOP (12:32)
[2016-12-19] MEDS ORDERED: IPRA3AMP AEROSOL (12:32)
--- NOTE | 2016-12-19 12:51 | NUR ---
IVF INCREASED TO 1000/HR FOR 500CC BOLUS PER VERBAL ORDERS PER DR. RON AT THIS TIME.
[2016-12-19 13:07] LABS: INFLUENZA A AG SCREEN NEGATIVE (NEGATIVE); INFLUENZA B AG SCREEN NEGATIVE (NEGATIVE)
[2016-12-19 13:49] LABS: BLOOD, URINE TRACE-INTACT (NEGATIVE); COLOR,URINE YELLOW (YELLOW); LEUKOCYTE ESTERASE ,URINE NEGATIVE (NEGATIVE); NITRITE,URINE NEGATIVE (NEGATIVE); UROBILINOGEN,URINE 0.2 EU/DL (NORMAL)
--- NOTE | 2016-12-19 13:50 | NUR ---
STATUS PT APPEARS TO BE RESTING COMFORTABLY IN CART. TEMPERATURE RECHECKED AFTER TYLENOL ADM WITH READING OF 99.2 ORAL. DENIES FURTHER NEEDS AT THIS TIME, CALL LIGHT WITHIN REACH. VS STABLE, WILL CONTINUE TO MONITOR.
[2016-12-19 13:55] LABS: BACTERIA,URINE 1+ (NEGATIVE); MUCUS,URINE PRESENT; RBC,URINE 0-1 /HPF (0-3); SQUAMOUS EPITHELIAL CELL,UR 0-5; WBC,URINE 0-1 /HPF (0-5)
--- NOTE | 2016-12-19 14:27 | NUR ---
PROVIDER DR. RON AT BEDSIDE TO SPEAK WITH PT.
--- NOTE | 2016-12-19 14:35 | NUR ---
ACTIVITY PT AMBULATORY IN HALLWAY WITH STEADY GAIT. DENIES COMPLAINT OF DIZZINESS. TOLERATES ACTIVITY WELL.
--- NOTE | 2016-12-19 14:41 | NUR ---
PROVIDER DR. RON AT BEDSIDE TO SPEAK WITH PT.
[2016-12-19] MEDS ORDERED: DOXYCYCLINE 100 MG TABLET PO ONE (14:45)
[2016-12-19] MEDS ORDERED: DOXY100C40 PO (14:46)
[2016-12-19 15:05] VITALS: BP 124/54; PULSE 77; RESP 18; TEMP 98.3; O2SAT 96
--- NOTE | 2016-12-19 15:05 | NUR ---
DISCHARGE WRITTEN INSTRUCTIONS WITH DOXYCYCLINE RX SENT WITH PT. PT EXITS ER BY W/C TO LOBBY WITH FRIEND AND FAMILY MEMBER.
--- NOTE | 2016-12-19 15:09 | NUR ---
REPORT CALLED TO SWAPNA, NURSING STAFF AT [facility]. DENIES QUESTIONS. ADVISED THAT PT LEFT WITH FAMILY AND WILL BE TRANSPORTED BACK TO FACILITY PER FAMILY.
== END 2016-12-19 15:05 | disposition home or self-care (01) ==
LOC: ED 11:16
DX: R40.4 Transient alteration of awareness (principal); R50.9 Fever, unspecified
CPT/HCPCS: 51701; 70450; 71010; 80053; 81001; 82948; 83605; 84145; 84484; 85007; 85027; 87040; 87400; 93005; 96360; 96361; 99284; A9270; J1642; J7030

== ENCOUNTER → 2016-12-24 | Outpatient (CLI) | payer MEDICARE, OTHER ==
[~2016-12-24] MED LIST changes: -ASPI-557 PO; +CALC0.25 PO; -DEXA4TAB PO; +DOXY100C40 PO; +NYST30PO11 TOP; -QUET25TA PO; +RANI150C4 PO; -RANI150T7 PO; +RISP0.5T14 PO
[2016-12-24 08:13] LABS: BASOPHILS % (AUTO) 0.3 % (0-2); EOSINOPHILS # (AUTO) 0.1 T/MM3 (0-0.5); EOSINOPHILS % (AUTO) 2.1 % (0-4); HCT - HEMATOCRIT 26.5 % (41-53); HGB - HEMOGLOBIN 8.7 GM/DL (13.5-17.5); IMMATURE GRANULOCYTE # (AUTO) 0.01 T/MM3 (0.00-0.03); IMMATURE GRANULOCYTE % (AUTO) 0.3 % (0.0-0.5); LYMPHOCYTES # (AUTO) 0.8 T/MM3 (1-4.8); LYMPHOCYTES % (AUTO) 28.6 % (23-45); MEAN CORPUSCULAR HGB 35.2 UUG (26-34); MEAN CORPUSCULAR HGB CONC(MCHC 32.8 GM/DL (31-37); MEAN CORPUSCULAR VOLUME 107.3 UM3 (80-100); MEAN PLATELET VOLUME 11.9 UM3 (9.4-12.4); MONOCYTES # (AUTO) 0.3 T/MM3 (0-0.8); MONOCYTES % (AUTO) 11.1 % (0-9.0); NEUTROPHILS #(AUTO)-ABSOLUTE 1.7 T/MM3 (1.8-7.7); NEUTROPHILS % (AUTO) 57.6 % (33-66); RED BLOOD COUNT 2.47 M/MM3 (4.50-5.90); WBC - WHITE BLOOD COUNT 2.9 T/MM3 (4.5-11.0)
[2016-12-24 08:28] LABS: ALBUMIN 3.2 G/DL (3.5-5.0); ALBUMIN/GLOBULIN RATIO 1.6 RATIO (1.1-2.2); ALKALINE PHOSPHATASE 54 U/L (38-126); ALT (SGPT) 20 U/L (21-72); ANION GAP 12 MEQ/L (5-15); AST (SGOT) 18 U/L (17-59); BUN/CREATININE RATIO 13 RATIO (6-26); CALCIUM 8.7 MG/DL (8.4-10.2); CHLORIDE 111 MEQ/L (98-107); CO2 - CARBON DIOXIDE 22 MEQ/L (22-30); CREATININE 2.8 MG/DL (0.8-1.5); GLOMERULAR FILTRATION RATE 22; GLUCOSE 82 MG/DL (75-110); POTASSIUM 4.5 MEQ/L (3.6-5); SODIUM 145 MEQ/L (134-144); TOTAL PROTEIN 5.2 G/DL (6.3-8.2)
== END ==
LOC: LABN.SV 08:05
PROVIDERS: ATTEND Internal Medicine Hematology & Oncology
DX: C90.00 Multiple myeloma not having achieved remission (principal)
CPT/HCPCS: 80053; 85025

== ENCOUNTER → 2016-12-31 | Outpatient (CLI) | payer MEDICARE, OTHER ==
[2016-12-31 08:43] LABS: BASOPHILS % (AUTO) 0.3 % (0-2); EOSINOPHILS # (AUTO) 0.1 T/MM3 (0-0.5); EOSINOPHILS % (AUTO) 2.3 % (0-4); HCT - HEMATOCRIT 25.5 % (41-53); HGB - HEMOGLOBIN 8.3 GM/DL (13.5-17.5); IMMATURE GRANULOCYTE # (AUTO) 0.01 T/MM3 (0.00-0.03); IMMATURE GRANULOCYTE % (AUTO) 0.3 % (0.0-0.5); LYMPHOCYTES # (AUTO) 0.7 T/MM3 (1-4.8); LYMPHOCYTES % (AUTO) 21.7 % (23-45); MEAN CORPUSCULAR HGB 34.9 UUG (26-34); MEAN CORPUSCULAR HGB CONC(MCHC 32.5 GM/DL (31-37); MEAN CORPUSCULAR VOLUME 107.1 UM3 (80-100); MEAN PLATELET VOLUME 12.7 UM3 (9.4-12.4); MONOCYTES # (AUTO) 0.4 T/MM3 (0-0.8); MONOCYTES % (AUTO) 12.7 % (0-9.0); NEUTROPHILS #(AUTO)-ABSOLUTE 1.9 T/MM3 (1.8-7.7); NEUTROPHILS % (AUTO) 62.7 % (33-66); RED BLOOD COUNT 2.38 M/MM3 (4.50-5.90)
[2016-12-31 08:53] LABS: ALBUMIN 3.1 G/DL (3.5-5.0); ALBUMIN/GLOBULIN RATIO 1.7 RATIO (1.1-2.2); ALKALINE PHOSPHATASE 52 U/L (38-126); ALT (SGPT) 23 U/L (21-72); ANION GAP 10 MEQ/L (5-15); AST (SGOT) 17 U/L (17-59); BUN/CREATININE RATIO 15 RATIO (6-26); CALCIUM 9.2 MG/DL (8.4-10.2); CHLORIDE 116 MEQ/L (98-107); CO2 - CARBON DIOXIDE 22 MEQ/L (22-30); CREATININE 2.8 MG/DL (0.8-1.5); GLOMERULAR FILTRATION RATE 22; GLUCOSE 85 MG/DL (75-110); POTASSIUM 4.2 MEQ/L (3.6-5); SODIUM 148 MEQ/L (134-144); TOTAL PROTEIN 4.9 G/DL (6.3-8.2)
== END ==
LOC: LABN.SV 08:19
PROVIDERS: ATTEND Internal Medicine Hematology & Oncology
DX: C90.00 Multiple myeloma not having achieved remission (principal)
CPT/HCPCS: 80053; 85025

== ENCOUNTER → 2017-01-03 | Outpatient (CLI) | payer MEDICARE, OTHER ==
[~2017-01-03] MED LIST changes: +GADOBUTROL 10mMol/10ml INJECTION IV ONE; +SALINE FLUSH 10ml SYRINGE ONE
--- NOTE | 2017-01-03 10:12 | DI ---
Indication: ITS.REASON: VISUAL DISTURBANCES H53.8 PROCEDURE: MRI BRAIN W/WO CONTRAST: Encounter: Initial Comparisons: Head CT dated December 19, 2016 and brain MRI dated September 06, 2016 Technique: Multiplanar, multisequence, MR imaging of the head with and without contrast was acquired. Contrast: 8 mL of Gadavist FINDINGS: The ventricles are of normal size, shape, and contour for the patient's age. There are small nonspecific punctate areas of T2-weighted and T2 FLAIR weighted signal abnormality in the deep frontoparietal white matter that most likely represent small vessel ischemic disease. This is of a degree that is considered to be normal for the patient's age. The brain stem, cerebellum, and cerebral hemispheres otherwise have a normal morphologic appearance as well as MR signal intensity on all pulse sequences. Following intravenous administration of contrast, no areas of abnormal enhancement are evident. There are no areas of restricted diffusion to suggest an acute infarct. There is no evidence of an intracranial mass lesion, intracranial hemorrhage, or hydrocephalus. The visualized portions of the orbits, calvarium, paranasal sinuses, and skull base demonstrate no significant abnormality. IMPRESSION: Unremarkable MRI of the head for the patient's age with and without contrast. .
== END ==
LOC: IMA 09:14
PROVIDERS: ATTEND Ophthalmology
DX: H53.8 Other visual disturbances (principal)
CPT/HCPCS: 70553; A9585

== ENCOUNTER → 2017-01-04 | Outpatient (CLI) | payer MEDICARE, OTHER ==
[~2017-01-04] MED LIST changes: -GADOBUTROL 10mMol/10ml INJECTION IV ONE; -SALINE FLUSH 10ml SYRINGE ONE
[2017-01-04 07:13] LABS: EOSINOPHILS % (AUTO) 0.9 % (0-4); HCT - HEMATOCRIT 25.3 % (41-53); IMMATURE GRANULOCYTE # (AUTO) 0.03 T/MM3 (0.00-0.03); IMMATURE GRANULOCYTE % (AUTO) 1.4 % (0.0-0.5); LYMPHOCYTES # (AUTO) 0.6 T/MM3 (1-4.8); LYMPHOCYTES % (AUTO) 29.2 % (23-45); MEAN CORPUSCULAR HGB 34.8 UUG (26-34); MEAN CORPUSCULAR HGB CONC(MCHC 31.6 GM/DL (31-37); MEAN PLATELET VOLUME 11.4 UM3 (9.4-12.4); MONOCYTES # (AUTO) 0.3 T/MM3 (0-0.8); MONOCYTES % (AUTO) 14.2 % (0-9.0); NEUTROPHILS #(AUTO)-ABSOLUTE 1.2 T/MM3 (1.8-7.7); NEUTROPHILS % (AUTO) 54.3 % (33-66); WBC - WHITE BLOOD COUNT 2.1 T/MM3 (4.5-11.0)
[2017-01-04 07:20] LABS: ALBUMIN 3.1 G/DL (3.5-5.0); ALBUMIN/GLOBULIN RATIO 1.5 RATIO (1.1-2.2); ALKALINE PHOSPHATASE 69 U/L (38-126); ALT (SGPT) 46 U/L (21-72); ANION GAP 12 MEQ/L (5-15); AST (SGOT) 40 U/L (17-59); BUN/CREATININE RATIO 15 RATIO (6-26); CALCIUM 8.9 MG/DL (8.4-10.2); CHLORIDE 115 MEQ/L (98-107); CO2 - CARBON DIOXIDE 21 MEQ/L (22-30); CREATININE 3.1 MG/DL (0.8-1.5); GLOMERULAR FILTRATION RATE 19; GLUCOSE 91 MG/DL (75-110); POTASSIUM 4.5 MEQ/L (3.6-5); SODIUM 148 MEQ/L (134-144); TOTAL PROTEIN 5.2 G/DL (6.3-8.2)
[2017-01-04 07:28] LABS: IGA - IMMUNOGLOBULIN A < 40.00 MG/DL (70-400); IGG - IMMUNOGLOBULIN G < 270.00 MG/DL (700-1600); IGM - IMMUNOGLOBULIN M < 25.00 MG/DL (40-230)
== END ==
LOC: LABN.SV 07:05
PROVIDERS: ATTEND Internal Medicine Hematology & Oncology
DX: C90.00 Multiple myeloma not having achieved remission (principal)
CPT/HCPCS: 80053; 82784; 83883; 84155; 84165; 85025; 86334

== ENCOUNTER → 2017-01-14 | Outpatient (CLI) | payer MEDICARE, OTHER ==
[2017-01-14 08:39] LABS: BASOPHILS % (AUTO) 0.4 % (0-2); EOSINOPHILS # (AUTO) 0.1 T/MM3 (0-0.5); HCT - HEMATOCRIT 27.4 % (41-53); HGB - HEMOGLOBIN 8.7 GM/DL (13.5-17.5); IMMATURE GRANULOCYTE # (AUTO) 0.01 T/MM3 (0.00-0.03); IMMATURE GRANULOCYTE % (AUTO) 0.4 % (0.0-0.5); LYMPHOCYTES # (AUTO) 0.7 T/MM3 (1-4.8); LYMPHOCYTES % (AUTO) 28.1 % (23-45); MEAN CORPUSCULAR HGB 34.5 UUG (26-34); MEAN CORPUSCULAR HGB CONC(MCHC 31.8 GM/DL (31-37); MEAN CORPUSCULAR VOLUME 108.7 UM3 (80-100); MEAN PLATELET VOLUME 11.8 UM3 (9.4-12.4); MONOCYTES # (AUTO) 0.4 T/MM3 (0-0.8); MONOCYTES % (AUTO) 15.3 % (0-9.0); NEUTROPHILS #(AUTO)-ABSOLUTE 1.2 T/MM3 (1.8-7.7); NEUTROPHILS % (AUTO) 52.8 % (33-66); RED BLOOD COUNT 2.52 M/MM3 (4.50-5.90); WBC - WHITE BLOOD COUNT 2.4 T/MM3 (4.5-11.0)
[2017-01-14 08:51] LABS: ALBUMIN 3.3 G/DL (3.5-5.0); ALBUMIN/GLOBULIN RATIO 1.8 RATIO (1.1-2.2); ALKALINE PHOSPHATASE 56 U/L (38-126); ALT (SGPT) 25 U/L (21-72); ANION GAP 11 MEQ/L (5-15); AST (SGOT) 18 U/L (17-59); BUN/CREATININE RATIO 12 RATIO (6-26); CALCIUM 9.2 MG/DL (8.4-10.2); CHLORIDE 115 MEQ/L (98-107); CO2 - CARBON DIOXIDE 22 MEQ/L (22-30); CREATININE 2.7 MG/DL (0.8-1.5); GLOMERULAR FILTRATION RATE 23; GLUCOSE 86 MG/DL (75-110); MAGNESIUM 2.1 MG/DL (1.6-2.3); PHOSPHORUS 6.1 MG/DL (2.5-4.5); POTASSIUM 4.3 MEQ/L (3.6-5); SODIUM 148 MEQ/L (134-144); TOTAL PROTEIN 5.1 G/DL (6.3-8.2); URIC ACID 7.1 MG/DL (3.5-8.5)
== END ==
LOC: LABN.SV 08:07
PROVIDERS: ATTEND Internal Medicine Nephrology
DX: C90.00 Multiple myeloma not having achieved remission (principal); C61 Malignant neoplasm of prostate; D64.89 Other specified anemias; N17.8 Other acute kidney failure; N18.3 Chronic kidney disease, stage 3 (moderate)
CPT/HCPCS: 80053; 82306; 83735; 83970; 84100; 84550; 85025

== ENCOUNTER → 2017-01-21 | Outpatient (CLI) | payer MEDICARE, OTHER ==
[2017-01-21 07:30] LABS: BASOPHILS % (AUTO) 0.4 % (0-2); EOSINOPHILS # (AUTO) 0.1 T/MM3 (0-0.5); EOSINOPHILS % (AUTO) 2.3 % (0-4); HCT - HEMATOCRIT 27.6 % (41-53); HGB - HEMOGLOBIN 8.9 GM/DL (13.5-17.5); IMMATURE GRANULOCYTE # (AUTO) 0.01 T/MM3 (0.00-0.03); IMMATURE GRANULOCYTE % (AUTO) 0.4 % (0.0-0.5); LYMPHOCYTES # (AUTO) 0.7 T/MM3 (1-4.8); LYMPHOCYTES % (AUTO) 24.5 % (23-45); MEAN CORPUSCULAR HGB 34.8 UUG (26-34); MEAN CORPUSCULAR HGB CONC(MCHC 32.2 GM/DL (31-37); MEAN CORPUSCULAR VOLUME 107.8 UM3 (80-100); MONOCYTES # (AUTO) 0.4 T/MM3 (0-0.8); NEUTROPHILS #(AUTO)-ABSOLUTE 1.6 T/MM3 (1.8-7.7); NEUTROPHILS % (AUTO) 58.4 % (33-66); RED BLOOD COUNT 2.56 M/MM3 (4.50-5.90); WBC - WHITE BLOOD COUNT 2.7 T/MM3 (4.5-11.0)
[2017-01-21 07:38] LABS: ALBUMIN 3.3 G/DL (3.5-5.0); ALBUMIN/GLOBULIN RATIO 1.8 RATIO (1.1-2.2); ALKALINE PHOSPHATASE 55 U/L (38-126); ALT (SGPT) 32 U/L (21-72); ANION GAP 14 MEQ/L (5-15); AST (SGOT) 22 U/L (17-59); BUN/CREATININE RATIO 17 RATIO (6-26); CALCIUM 8.7 MG/DL (8.4-10.2); CHLORIDE 112 MEQ/L (98-107); CO2 - CARBON DIOXIDE 22 MEQ/L (22-30); CREATININE 2.6 MG/DL (0.8-1.5); GLOMERULAR FILTRATION RATE 24; GLUCOSE 80 MG/DL (75-110); POTASSIUM 4.2 MEQ/L (3.6-5); SODIUM 148 MEQ/L (134-144); TOTAL PROTEIN 5.1 G/DL (6.3-8.2)
== END ==
LOC: LABN.SV 07:22
PROVIDERS: ATTEND Internal Medicine Hematology & Oncology
DX: C90.00 Multiple myeloma not having achieved remission (principal)
CPT/HCPCS: 80053; 85025

== ENCOUNTER → 2017-01-28 | Outpatient (CLI) | payer MEDICARE, OTHER ==
[2017-01-28 08:08] LABS: HCT - HEMATOCRIT 28.2 % (41-53); HGB - HEMOGLOBIN 8.9 GM/DL (13.5-17.5); MEAN CORPUSCULAR HGB 34.4 UUG (26-34); MEAN CORPUSCULAR HGB CONC(MCHC 31.6 GM/DL (31-37); MEAN CORPUSCULAR VOLUME 108.9 UM3 (80-100); RED BLOOD COUNT 2.59 M/MM3 (4.50-5.90)
[2017-01-28 08:18] LABS: ALBUMIN 3.2 G/DL (3.5-5.0); ALBUMIN/GLOBULIN RATIO 1.7 RATIO (1.1-2.2); ALKALINE PHOSPHATASE 57 U/L (38-126); ALT (SGPT) 43 U/L (21-72); ANION GAP 12 MEQ/L (5-15); AST (SGOT) 21 U/L (17-59); BUN/CREATININE RATIO 15 RATIO (6-26); CALCIUM 8.7 MG/DL (8.4-10.2); CHLORIDE 114 MEQ/L (98-107); CO2 - CARBON DIOXIDE 21 MEQ/L (22-30); CREATININE 2.8 MG/DL (0.8-1.5); GLOMERULAR FILTRATION RATE 22; GLUCOSE 85 MG/DL (75-110); SODIUM 147 MEQ/L (134-144); TOTAL PROTEIN 5.1 G/DL (6.3-8.2)
[2017-01-28 08:23] LABS: BAND NEUTROPHILS # 0.1 T/MM3; EOSINOPHILS # (MANUAL) 0.1 T/MM3 (0-0.5); LYMPHOCYTES # (MANUAL) 0.7 T/MM3 (1-4.8); MONOCYTES # (MANUAL) 0.4 T/MM3 (0-0.8); NEUTROPHILS #(MANUAL)-ABSOLUTE 1.8 T/MM3 (1.8-7.7); NUCLEATED RED BLOOD CELLS 2; TOTAL CELLS COUNTED 100 %
[2017-01-28 08:24] LABS: HELMET CELLS 1+; POIKILOCYTOSIS 2+; SCHISTOCYTES 1+; TEAR DROP CELLS 2+
[2017-01-28 08:25] LABS: ANISOCYTOSIS 1+; OVALOCYTES 1+
[2017-01-28 08:26] LABS: IGA - IMMUNOGLOBULIN A < 40.00 MG/DL (70-400); IGG - IMMUNOGLOBULIN G < 270.00 MG/DL (700-1600); IGM - IMMUNOGLOBULIN M < 25.00 MG/DL (40-230)
== END ==
LOC: LABN.SV 07:55
PROVIDERS: ATTEND Internal Medicine Nephrology
DX: C90.00 Multiple myeloma not having achieved remission (principal); N17.8 Other acute kidney failure
CPT/HCPCS: 80053; 82784; 83883; 84155; 84165; 85025; 86334

== ENCOUNTER → 2017-02-07 | Outpatient (CLI) | payer MEDICARE, OTHER ==
--- NOTE | 2017-02-07 09:37 | DI ---
EXAM: US RENAL LOCATION OF DICTATION: [facility] [place]. COMPARISON: 10/10/2016. HISTORY: ITS.REASON: N17.8 Other acute kidney failure; R33.9 Retention of urine, unspe FINDINGS: RIGHT KIDNEY:9.2 x 4.2 x 4.9 cm. There may be some mild diffuse cortical thinning, but is otherwise normal in echotexture, size, color Doppler flow, and appearance without hydronephrosis. LEFT KIDNEY:9.3 x 4.9 x 4.2 cm. There may be some mild diffuse cortical thinning, but is otherwise normal in echotexture, size, color Doppler flow, and appearance without hydronephrosis. BLADDER: Unremarkable. Post void bladder emptied completely. IMPRESSION: Some diffuse cortical thinning is noted bilaterally. Otherwise unremarkable without evidence for hydronephrosis. .
== END ==
LOC: IMA 07:41
PROVIDERS: ATTEND Internal Medicine Nephrology
DX: N17.8 Other acute kidney failure (principal); R93.422 Abnormal radiologic findings on diagnostic imaging of left kidney; R93.421 Abnormal radiologic findings on diagnostic imaging of right kidney; R33.9 Retention of urine, unspecified

== ENCOUNTER → 2017-02-11 | Outpatient (CLI) | payer MEDICARE, OTHER ==
[2017-02-11 08:01] LABS: BASOPHILS % (AUTO) 0.2 % (0-2); EOSINOPHILS % (AUTO) 0.4 % (0-4); HCT - HEMATOCRIT 28.7 % (41-53); HGB - HEMOGLOBIN 8.9 GM/DL (13.5-17.5); IMMATURE GRANULOCYTE # (AUTO) 0.01 T/MM3 (0.00-0.03); IMMATURE GRANULOCYTE % (AUTO) 0.2 % (0.0-0.5); LYMPHOCYTES # (AUTO) 0.5 T/MM3 (1-4.8); LYMPHOCYTES % (AUTO) 10.3 % (23-45); MEAN CORPUSCULAR HGB 33.6 UUG (26-34); MEAN CORPUSCULAR VOLUME 108.3 UM3 (80-100); MEAN PLATELET VOLUME 12.2 UM3 (9.4-12.4); MONOCYTES # (AUTO) 0.3 T/MM3 (0-0.8); MONOCYTES % (AUTO) 6.2 % (0-9.0); NEUTROPHILS #(AUTO)-ABSOLUTE 4.3 T/MM3 (1.8-7.7); NEUTROPHILS % (AUTO) 82.7 % (33-66); RED BLOOD COUNT 2.65 M/MM3 (4.50-5.90); WBC - WHITE BLOOD COUNT 5.2 T/MM3 (4.5-11.0)
[2017-02-11 08:09] LABS: ALBUMIN 3.3 G/DL (3.5-5.0); ALBUMIN/GLOBULIN RATIO 1.7 RATIO (1.1-2.2); ALKALINE PHOSPHATASE 52 U/L (38-126); ALT (SGPT) 35 U/L (21-72); ANION GAP 16 MEQ/L (5-15); AST (SGOT) 29 U/L (17-59); BUN/CREATININE RATIO 13 RATIO (6-26); CALCIUM 9.1 MG/DL (8.4-10.2); CHLORIDE 114 MEQ/L (98-107); CO2 - CARBON DIOXIDE 20 MEQ/L (22-30); CREATININE 3.5 MG/DL (0.8-1.5); GLOMERULAR FILTRATION RATE 17; GLUCOSE 83 MG/DL (75-110); POTASSIUM 3.7 MEQ/L (3.6-5); SODIUM 150 MEQ/L (134-144); TOTAL PROTEIN 5.2 G/DL (6.3-8.2)
== END ==
LOC: LABN.SV 07:50
PROVIDERS: ATTEND Internal Medicine Hematology & Oncology
DX: C90.00 Multiple myeloma not having achieved remission (principal)
CPT/HCPCS: 80053; 85025

== ENCOUNTER → 2017-02-18 | Outpatient (CLI) | payer MEDICARE, OTHER ==
[2017-02-18 08:22] LABS: BASOPHILS % (AUTO) 0.3 % (0-2); EOSINOPHILS # (AUTO) 0.1 T/MM3 (0-0.5); EOSINOPHILS % (AUTO) 2.8 % (0-4); HCT - HEMATOCRIT 28.9 % (41-53); HGB - HEMOGLOBIN 9.5 GM/DL (13.5-17.5); IMMATURE GRANULOCYTE # (AUTO) 0.03 T/MM3 (0.00-0.03); IMMATURE GRANULOCYTE % (AUTO) 0.9 % (0.0-0.5); LYMPHOCYTES # (AUTO) 0.7 T/MM3 (1-4.8); LYMPHOCYTES % (AUTO) 20.6 % (23-45); MEAN CORPUSCULAR HGB 34.1 UUG (26-34); MEAN CORPUSCULAR HGB CONC(MCHC 32.9 GM/DL (31-37); MEAN CORPUSCULAR VOLUME 103.6 UM3 (80-100); MEAN PLATELET VOLUME 12.1 UM3 (9.4-12.4); MONOCYTES # (AUTO) 0.4 T/MM3 (0-0.8); MONOCYTES % (AUTO) 11.8 % (0-9.0); NEUTROPHILS % (AUTO) 63.6 % (33-66); RED BLOOD COUNT 2.79 M/MM3 (4.50-5.90); WBC - WHITE BLOOD COUNT 3.2 T/MM3 (4.5-11.0)
[2017-02-18 08:31] LABS: ALBUMIN 3.3 G/DL (3.5-5.0); ALBUMIN/GLOBULIN RATIO 1.7 RATIO (1.1-2.2); ALKALINE PHOSPHATASE 57 U/L (38-126); ALT (SGPT) 39 U/L (21-72); ANION GAP 13 MEQ/L (5-15); AST (SGOT) 27 U/L (17-59); BUN/CREATININE RATIO 13 RATIO (6-26); CALCIUM 8.9 MG/DL (8.4-10.2); CHLORIDE 112 MEQ/L (98-107); CO2 - CARBON DIOXIDE 21 MEQ/L (22-30); CREATININE 2.3 MG/DL (0.8-1.5); GLOMERULAR FILTRATION RATE 27; GLUCOSE 86 MG/DL (75-110); POTASSIUM 3.6 MEQ/L (3.6-5); SODIUM 146 MEQ/L (134-144); TOTAL PROTEIN 5.2 G/DL (6.3-8.2)
== END ==
LOC: LABN.SV 08:02
PROVIDERS: ATTEND Internal Medicine Hematology & Oncology
DX: C90.00 Multiple myeloma not having achieved remission (principal)
CPT/HCPCS: 80053; 85025

== ENCOUNTER → 2017-02-20 | Outpatient (CLI) | payer MEDICARE, OTHER ==
[2017-02-20 08:22] LABS: ALBUMIN 3.9 G/DL (3.5-5.0); ANION GAP 14 MEQ/L (5-15); BUN/CREATININE RATIO 14 RATIO (6-26); CALCIUM 9.2 MG/DL (8.4-10.2); CHLORIDE 110 MEQ/L (98-107); CO2 - CARBON DIOXIDE 22 MEQ/L (22-30); CREATININE 2.6 MG/DL (0.8-1.5); GLOMERULAR FILTRATION RATE 24; GLUCOSE 87 MG/DL (75-110); PHOSPHORUS 4.9 MG/DL (2.5-4.5); SODIUM 146 MEQ/L (134-144)
== END ==
LOC: LABN.SV 08:07
PROVIDERS: ATTEND Internal Medicine Nephrology
DX: E86.0 Dehydration (principal)
CPT/HCPCS: 80069

== ENCOUNTER → 2017-02-26 | Outpatient (CLI) | payer MEDICARE, OTHER ==
[2017-02-26 08:12] LABS: BASOPHILS % (AUTO) 0.3 % (0-2); EOSINOPHILS # (AUTO) 0.1 T/MM3 (0-0.5); EOSINOPHILS % (AUTO) 2.7 % (0-4); HCT - HEMATOCRIT 29.2 % (41-53); HGB - HEMOGLOBIN 9.3 GM/DL (13.5-17.5); IMMATURE GRANULOCYTE # (AUTO) 0.02 T/MM3 (0.00-0.03); IMMATURE GRANULOCYTE % (AUTO) 0.6 % (0.0-0.5); LYMPHOCYTES # (AUTO) 0.7 T/MM3 (1-4.8); LYMPHOCYTES % (AUTO) 21.7 % (23-45); MEAN CORPUSCULAR HGB 33.6 UUG (26-34); MEAN CORPUSCULAR HGB CONC(MCHC 31.8 GM/DL (31-37); MEAN CORPUSCULAR VOLUME 105.4 UM3 (80-100); MEAN PLATELET VOLUME 13.1 UM3 (9.4-12.4); MONOCYTES # (AUTO) 0.5 T/MM3 (0-0.8); MONOCYTES % (AUTO) 13.4 % (0-9.0); NEUTROPHILS #(AUTO)-ABSOLUTE 2.1 T/MM3 (1.8-7.7); NEUTROPHILS % (AUTO) 61.3 % (33-66); RED BLOOD COUNT 2.77 M/MM3 (4.50-5.90); WBC - WHITE BLOOD COUNT 3.4 T/MM3 (4.5-11.0)
[2017-02-26 08:25] LABS: ALBUMIN 3.2 G/DL (3.5-5.0); ALBUMIN/GLOBULIN RATIO 1.9 RATIO (1.1-2.2); ALKALINE PHOSPHATASE 46 U/L (38-126); ALT (SGPT) 31 U/L (21-72); ANION GAP 11 MEQ/L (5-15); AST (SGOT) 20 U/L (17-59); BUN/CREATININE RATIO 16 RATIO (6-26); CALCIUM 8.7 MG/DL (8.4-10.2); CHLORIDE 111 MEQ/L (98-107); CO2 - CARBON DIOXIDE 24 MEQ/L (22-30); CREATININE 2.2 MG/DL (0.8-1.5); GLOMERULAR FILTRATION RATE 29; GLUCOSE 81 MG/DL (75-110); POTASSIUM 4.2 MEQ/L (3.6-5); SODIUM 146 MEQ/L (134-144); TOTAL PROTEIN 4.9 G/DL (6.3-8.2)
[2017-02-26 08:33] LABS: IGA - IMMUNOGLOBULIN A < 40.00 MG/DL (70-400); IGG - IMMUNOGLOBULIN G < 270.00 MG/DL (700-1600); IGM - IMMUNOGLOBULIN M < 25.00 MG/DL (40-230)
== END ==
LOC: LABN.SV 08:03
PROVIDERS: ATTEND Internal Medicine Hematology & Oncology
DX: C90.00 Multiple myeloma not having achieved remission (principal)
CPT/HCPCS: 80053; 82784; 83883; 84155; 84165; 85025; 86334

== ENCOUNTER 2017-08-17 10:45 | Inpatient (IN) ==
--- NOTE | 2017-08-17 11:43 | Emergency Department Report ---
General Adult HPI - General Chief complaint: Medical Emergency <Marlene Browne 08/17/17 11:44> Stated complaint: Found on floor <Marlene Browne 08/17/17 11:44> Time Seen by Provider: 08/17/17 11:01 <Marlene Browne 08/17/17 11:44> Source: family, EMS <Marlene Browne 08/17/17 11:44> Mode of arrival: EMS <Marlene Browne 08/17/17 11:44> Limitations: altered mental status <Marlene Browne 08/17/17 11:44> - History of Present Illness HPI narrative: Pt presents per EMS after being found on the floor this am by his girlfriend with an unknown downtime. Pt is confused, has known multiple myeloma and CKD with a poor prognosis. <Marlene Browne 08/17/17 11:44> Onset (ago): unknown <Marlene Browne 08/17/17 11:44> - Related Data Home Medications Medication Instructions Recorded Confirmed Omeprazole 40 mg PO ACB #0 10/10/16 08/17/17 Acyclovir 400 mg PO DAILY #0 12/19/16 08/17/17 Calcitriol [Rocaltrol] 0.25 mcg PO DAILY #0 12/19/16 08/17/17 raNITIdine HCl [Ranitidine HCl] 150 mg PO HS #0 12/19/16 08/17/17 risperiDONE [Risperdal] 0.5 mg PO BID #0 12/19/16 08/17/17 CALCIUM CARBONATE Chewable [Tums] 500 mg PO AM 08/13/17 08/17/17 Docusate Sodium 100 mg PO BID 08/13/17 08/17/17 Hydralazine [Apresoline] 10 mg PO TID 08/13/17 08/17/17 Isosorbide Dinitrate 10 mg PO TID 08/13/17 08/17/17 Sertraline [Zoloft] 25 mg PO HS 08/13/17 08/17/17 CALCIUM CARBONATE Chewable [Tums] 500 mg PO AM 08/17/17 08/17/17 <Marlene Browne 08/17/17 11:44> Allergies Allergy/AdvReac Type Severity Reaction Status Date / Time Penicillins Allergy Unknown Verified 08/17/17 11:13 <HollieMarlenetristan Martin 08/17/17 11:44> Review of Systems Limitations: ROS unobtainable due to patient's medical condition <Marlene Browne 08/17/17 11:44> [facility] Patient Stated Medical History Dementia Yes Cardiac Arrhythmia Yes: 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 Hx Renal Disease Yes: kidney failure-see's dr brady Post Traumatic Stress Disorder Yes Clinic Medical History Back pain (Inactive Medical) Dementia (Inactive Medical) Ingrown toenail (Inactive Medical) Thoracic back pain (Inactive Medical) <Marlene Browne 08/17/17 11:44> - Social History Smoking status: Never smoker <Mralene Browne 08/17/17 11:44> Physical Exam - Limitations Limitations: altered mental status <Marlene Browne 08/17/17 11:44> - General General appearance: alert (verbal and confused) <Marlene Browne 11:44> - Normal Exams: Head:: Normocephalic without trauma <Marlene Browne 08/17/17 11:44> Eyes:: Pupils are PERRLA w/ EOMI <Marlene Browne 08/17/17 11:44> Neck:: Full range of motion, without adenopathy <Marlene Browne 11:44> Chest/Respirations:: Clear all collins, with good airflow, and symmetry bilaterally <Marlene Browne 08/17/17 11:44> Cardiovascular:: without murmur or gallop, Pulses 2+ all extremities, capillary refill, <2 seconds all extremities (Irregular rate) <Marlene Browne 11:44> Abdomen:: Bowel sounds positive, soft, non-tender, non-distended <Marlene Browne 08/17/17 11:44> Musculoskeletal:: No tenderness, or deformity noted, good range of motion, all extremities <Marlene Browne 08/17/17 11:44> Integumentary:: No rashes, or bruising noted <Marlene Browne 08/17/17 11 :44> Neurological:: Patient is alert <Marlene Browne 08/17/17 11:44> Course Vital Signs Temperature 98.5 F 08/17/17 10:55 Pulse Rate 97 08/17/17 10:55 Respiratory Rate 20 08/17/17 10:55 Blood Pressure 202/116 H 08/17/17 10:55 Pulse Oximetry 97 08/17/17 10:55 Temperature 98.5 F 08/17/17 10:55 Pulse Rate 86 08/17/17 14:15 Respiratory Rate 21 08/17/17 14:15 Blood Pressure 189/139 H 08/17/17 14:01 Pulse Oximetry 97 08/17/17 14:15 <Marlene Browne 08/17/17 11:44> Medical Decision Making - [facility] Narrative Medical decision making narrative: Pt was here 4 days ago for a fall and weakness. He is known to have moderate dementia, multiple myeloma, and CKD. He has a life expectancy of 3-6 months according to his daughter. Pt arrives today after spending an unknown amount of time on the floor after an unwitnessed fall. Son (DPOA) notified of pts admission and current condition. Discussed diagnostic and treatment options. Pt to be admitted to hospitalists service and family will notify of decisions for continued care <Marlene Browne 08/17/17 14:47> - Differential Diagnosis Dementia, CVA, UTI, Syncope <Marlene Browne 08/17/17 11:44> - Lab Data Lab results reviewed: Yes: I reviewed the patient's lab results. <Marlene Browne 08/17/17 14:47> Result diagrams: 08/17/17 11:46 08/17/17 11:46 <Marlene Browne 08/17/17 11:44> Lab Results 08/17/17 08/17/17 08/17/17 Range/Units 11:46 11:46 11:46 WBC 4.1 L (4.5-11.0) T/MM3 RBC 2.62 L (4.50-5.90) M/MM3 Hgb 9.3 L (13.5-17.5) GM/DL Hct 28.5 L (41-53) % MCV 108.8 H (80-100) UM3 MCH 35.5 H (26-34) UUG MCHC 32.6 (31-37) GM/DL RDW Std Deviation 49.0 (36.9-50.2) FL Plt Count 82 L (130-400) T/MM3 MPV 11.1 (9.4-12.4) UM3 Immature Gran % (Auto) 0.2 (0.0-0.5) % Neut % (Auto) 75.2 H (33-66) % Lymph % (Auto) 13.4 L (23-45) % [place] % (Auto) 9.3 H (0-9.0) % Eos % (Auto) 1.7 (0-4) % Baso % (Auto) 0.2 (0-2) % Neut # (Auto) 3.1 (1.8-7.7) T/MM3 Lymph # (Auto) 0.6 L (1-4.8) T/MM3 [place] # (Auto) 0.4 (0-0.8) T/MM3 Eos # (Auto) 0.1 (0-0.5) T/MM3 Baso # (Auto) 0.0 (0-0.2) T/MM3 Abs Immat Gran (auto) 0.01 (0.00-0.03) T/MM3 Turbidity < 20 (0-20) Sodium 148 H (134-144) MEQ/L Potassium 3.7 (3.6-5) MEQ/L Chloride 115 H (98-107) MEQ/L Carbon Dioxide 22 (22-30) MEQ/L Anion Gap 11 (5-15) MEQ/L BUN 59.0 H* (9-20) MG/DL Creatinine 3.4 H (0.8-1.5) MG/DL GFR Calculation 17 BUN/Creatinine Ratio 17 (6-26) RATIO Glucose 89 (75-110) MG/DL Calculated Osmolality 300 H (261-280) MOSM/KG Calcium 11.1 H (8.4-10.2) MG/DL Total Bilirubin 0.60 (0.20-1.30) MG/DL Icterus Index < 2 (0-7) AST 24 (17-59) U/L ALT 36 (21-72) U/L Alkaline Phosphatase 85 (38-126) U/L Creatine Kinase 149 (55-170) U/L Total Protein 5.9 L (6.3-8.2) G/DL Albumin 3.8 (3.5-5.0) G/DL Globulin 2.1 L (2.4-3.6) G/DL Albumin/Globulin Ratio 1.8 (1.1-2.2) RATIO Specimen Hemolysis < 15 (0-25) Ur Collection Type Urine Color (YELLOW) Urine Clarity Urine pH (5.0-8.0) Ur Specific [place] (1.015-1.025) Urine Protein (NEGATIVE) Urine Glucose (UA) (NEGATIVE) Urine Ketones (NEGATIVE) Urine Occult Blood (NEGATIVE) Urine Nitrate (NEGATIVE) Urine Bilirubin (NEGATIVE) Urine Urobilinogen (NORMAL) EU/DL Ur Leukocyte Esterase (NEGATIVE) Urine RBC (0-3) /HPF Urine WBC (0-5) /HPF Urine Bacteria (NEGATIVE) Ur Culture Indicated? 08/17/17 Range/Units 11:50 WBC (4.5-11.0) T/MM3 RBC (4.50-5.90) M/MM3 Hgb (13.5-17.5) GM/DL Hct (41-53) % MCV (80-100) UM3 MCH (26-34) UUG MCHC (31-37) GM/DL RDW Std Deviation (36.9-50.2) FL Plt Count (130-400) T/MM3 MPV (9.4-12.4) UM3 Immature Gran % (Auto) (0.0-0.5) % Neut % (Auto) (33-66) % Lymph % (Auto) (23-45) % [place] % (Auto) (0-9.0) % Eos % (Auto) (0-4) % Baso % (Auto) (0-2) % Neut # (Auto) (1.8-7.7) T/MM3 Lymph # (Auto) (1-4.8) T/MM3 [place] # (Auto) (0-0.8) T/MM3 Eos # (Auto) (0-0.5) T/MM3 Baso # (Auto) (0-0.2) T/MM3 Abs Immat Gran (auto) (0.00-0.03) T/MM3 Turbidity (0-20) Sodium (134-144) MEQ/L Potassium (3.6-5) MEQ/L Chloride (98-107) MEQ/L Carbon Dioxide (22-30) MEQ/L Anion Gap (5-15) MEQ/L BUN (9-20) MG/DL Creatinine (0.8-1.5) MG/DL GFR Calculation BUN/Creatinine Ratio (6-26) RATIO Glucose (75-110) MG/DL Calculated Osmolality (261-280) MOSM/KG Calcium (8.4-10.2) MG/DL Total Bilirubin (0.20-1.30) MG/DL Icterus Index (0-7) AST (17-59) U/L ALT (21-72) U/L Alkaline Phosphatase (38-126) U/L Creatine Kinase (55-170) U/L Total Protein (6.3-8.2) G/DL Albumin (3.5-5.0) G/DL Globulin (2.4-3.6) G/DL Albumin/Globulin Ratio (1.1-2.2) RATIO Specimen Hemolysis (0-25) Ur Collection Type Urine, clean catch Urine Color Yellow (YELLOW) Urine Clarity Clear Urine pH 5.5 (5.0-8.0) Ur Specific [place] 1.025 (1.015-1.025) Urine Protein 1+ A (NEGATIVE) Urine Glucose (UA) Negative (NEGATIVE) Urine Ketones Negative (NEGATIVE) Urine Occult Blood 1+ A (NEGATIVE) Urine Nitrate Negative (NEGATIVE) Urine Bilirubin Negative (NEGATIVE) Urine Urobilinogen 0.2 (NORMAL) EU/DL Ur Leukocyte Esterase Negative (NEGATIVE) Urine RBC None seen (0-3) /HPF Urine WBC None seen (0-5) /HPF Urine Bacteria None seen (NEGATIVE) Ur Culture Indicated? Cult not indicated <Marlene Browne 08/17/17 14:47> - EKG Data EKG #1 EKG attestation: Yes: I reviewed and interpreted this EKG. < 13:01> EKG shows normal: sinus rhythm, axis <08/17/17 13:01> Rhythm: PAC's <18/17 13:01> [place]/QRS: IVCD <January,[facility] 08/17/17 13:01> Interpretation: nonspecific ST-T wave changes <January,[facility] 08/17/17 13:01> Disposition Clinical Impression: CKD (chronic kidney disease) Qualifiers: Chronic kidney disease stage: stage 4 (severe) Qualified Code(s): N18.4 - Chronic kidney disease, stage 4 (severe) Multiple myeloma Qualifiers: Multiple myeloma remission status: not in remission Qualified Code(s): C90.00 - Multiple myeloma not having achieved remission Dementia Qualifiers: Dementia type: Alzheimer's disease Alzheimer's disease onset: other onset Dementia behavioral disturbance: without behavioral disturbance Qualified Code(s ): G30.8 - Other Alzheimer's disease; F02.80 - Dementia in other diseases classified elsewhere without behavioral disturbance; F02.80 - Dementia in other diseases classified elsewhere without behavioral disturbance; F02.80 - Dementia in other diseases classified elsewhere without behavioral disturbance Fall Qualifiers: Encounter type: subsequent encounter Qualified Code(s): W19.XXXD - Unspecified fall, subsequent encounter <Marlene Browne 08/17/17 14:47> Disposition: 02 To [facility] Acute Care <Marlene Browne 08/17/17 14:47> Condition: Stable <Marlene Browne 08/17/17 14:47> Instructions: <Marlene Browne 08/17/17 11:44> Prescriptions: No Action raNITIdine HCl [Ranitidine HCl] 150 mg PO HS #0 Calcitriol [Rocaltrol] 0.25 mcg PO DAILY #0 risperiDONE [Risperdal] 0.5 mg PO BID #0 Sertraline [Zoloft] 25 mg PO HS Hydralazine [Apresoline] 10 mg PO TID Docusate Sodium 100 mg PO BID CALCIUM CARBONATE Chewable [Tums] 500 mg PO AM Omeprazole 40 mg PO ACB #0 Acyclovir 400 mg PO DAILY #0 Isosorbide Dinitrate 10 mg PO TID CALCIUM CARBONATE Chewable [Tums] 500 mg PO AM <Marlene Browne 11:44> Referrals: Rivera Live MD [Family Provider] - <Marlene Browne 11:44> Forms: <Marlene Browne 08/17/17 14:47> Time of Disposition: 14:47 <Marlene Browne 08/17/17 14:47> - Seen By: midlevel <Marlene Browne 08/17/17 14:47>
[2017-08-17] MEDS ORDERED: 1/2 NS 1,000 ML IV SCH (14:45)
--- NOTE | 2017-08-17 15:15 | History & Physical Report ---
History of Present Illness Date: 08/17/17 Chief complaint: Encephalopathy, weakness, multiple falls HPI: Mr Mendoza is a 82 yr old male who recently moved from [place] to [place] last week. He is currently residing with his fiance at [facility] in the independent apartments. Over the past 4 days he has had 3 different falls and has developed increased weakness with encephalopathy over the last 24 hours. Patient was seen in the emergency room following a fall on 08/13. 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 Patient was discharged home, however, proceeded to fall again this morning. At this time. His significant other was unable to assist him to get up. She called EMS. Patient was brought back to the emergency room today for acute evaluation and treatment. Basic laboratory studies are obtained, WBC count is low at 4.1, RBCs 2.62, hemoglobin 9.3, hematocrit 28.5, platelet count 82. Sodium was found to be elevated at 148, potassium 3.7, BUN 59 , creatinine 3.4. This is not far from patient's baseline as he does have known history of chronic kidney disease. On arrival to the emergency room this morning. His blood pressure was 202/116. Blood pressure was consistently elevated and at time of admission, remains 189/139. On physician exam , Mr Mendoza is alert with eyes open, however, is unable to answer questions appropriately. When asked if he hurts he began to talk about "curtains". Family report this is not his normal mental status. Normally he is able to carry on a normal conversation even with hx of dementia. Significant other is unable to give any health history. Spoke with daughter- Gladys Hightower- DPOA- [phone] and Son- Beto Mendoza- DPOA- [phone]. Both report that they were talking with [facility] staff, Brinda Rahman about admission to the [facility] a program for rehabilitation and strengthening. Daughter did report that pt is DNR. Review of Systems ROS unobtainable: due to mental status Review of systems: Unable to obtain a accurate ROS due to acute encephalopathy [facility] Clinic Medical History CKD (chronic kidney disease) Multiple myeloma Hx Prostrate Cancer Back pain Dementia Surgical History: Bone Marrow Transplant Family History: Father- Colon and Prostrate Cancer Mother- Heart problems - Social History Smoking status: Never smoker Substance use type: does not use Alcohol intake frequency: does not drink Current residence: [facility]isted [facility]) Social history: Former PCP of Lucius DELANEY at [facility]. No current PCP since returning from [place] Former hematology nurse educator- Dr Yissel Mcnamara Former Deck Supervisor- Dr Rainer Christie Medications Home Medications Medication Instructions Recorded Confirmed Type Omeprazole 40 mg PO ACB #0 10/10/16 08/17/17 History Acyclovir 400 mg PO DAILY #0 12/19/16 08/17/17 History Calcitriol [Rocaltrol] 0.25 mcg PO DAILY #0 12/19/16 08/17/17 History raNITIdine HCl [Ranitidine HCl] 150 mg PO HS #0 12/19/16 08/17/17 History risperiDONE [Risperdal] 0.5 mg PO BID #0 12/19/16 08/17/17 History CALCIUM CARBONATE Chewable [Tums] 500 mg PO AM 08/13/17 08/17/17 History Docusate Sodium 100 mg PO BID 08/13/17 08/17/17 History Hydralazine [Apresoline] 10 mg PO TID 08/13/17 08/17/17 History Isosorbide Dinitrate 10 mg PO TID 08/13/17 08/17/17 History Sertraline [Zoloft] 25 mg PO HS 08/13/17 08/17/17 History CALCIUM CARBONATE Chewable [Tums] 500 mg PO AM 08/17/17 08/17/17 History Allergies Allergy/AdvReac Type Severity Reaction Status Date / Time Penicillins Allergy Unknown Verified 08/17/17 11:13 Exam Vital Signs: Temperature 98.5 F 08/17/17 10:55 Pulse Rate 86 08/17/17 14:15 Respiratory Rate 21 08/17/17 14:15 Blood Pressure 189/139 H 08/17/17 14:01 Pulse Oximetry 97 08/17/17 14:15 Telemetry Rhythm: Sinus Rhythm - Constitutional Present: well nourished, well developed - Routine HEENT Exam Eye: Present: EOMI ENT: Present: mucous membranes moist, dentition normal - Routine Respiratory Exam Present: CTA bilaterally. Absent: wheezes - Routine Cardiovascular Exam Present: RRR, S1, S2. Absent: murmur - Routine Abdominal Exam Present: soft, normoactive bowel sounds, non distended. Absent: tenderness - Routine Extremities Exam Present: edema (trace edema to BLE) - Routine Back/Spine/Pelvis Exam Comments: Chronic Back pain - Routine Skin Exam Present: intact, dry, warm - Routine Neurological Exam Present: alert, CN II-XII intact, altered mental status, moving all extremities - Routine Psychiatric Exam Present: cooperative Results - Labs CBC & Chem 7: 08/17/17 11:46 08/17/17 11:46 Assessment and Plan (1) Acute encephalopathy Current visit: Yes Status: Acute (2) Hypernatremia Current visit: Yes Status: Acute Assessment and Plan: Impression Acute encephalopathy Hypernatremia, present on admission-148 Uncontrolled hypertension Multiple falls Pancytopenia Multiple myeloma Hypertension Chronic kidney disease Dementia Plan Initially admit outpatient observation under the care of Dr Wallace for cephalopathy, multiple falls and hypernatremia. Obtain a CT scan of the head. Given multiple unwitnessed falls, accompanied with an acute encephalopathy and uncontrolled hypertension to rule out intracranial abnormality or bleeding. Regarding hypernatremia. Will place patient on half-normal saline at 100 ML per hour for gentle hydration. Will resume home antihypertensive medications including hydralazine 10 milligrams 3 times a day, isosorbide 10 milligrams 3 times a day. Monitor blood counts. Acute thrombocytopenia- PLT on admission 82. Chronic pancytopenia related to multiple myeloma Consult speech therapy to evaluate swallow given weakness and encephalopathy Consider PT/OT screen once more medially stable given weakness and multiple falls. Again, patient is a do not resuscitate and this orders written Recheck CBC and BMP tomorrow morning to follow blood counts, renal function and electrolytes Orders and plan of care discussed with attending, Dr Wallace Discuss with case management. Patient does meet criteria to change to inpatient status given. Acute encephalopathy, accompanied with chronic kidney disease and uncontrolled hypertension. Will change status to inpatient. Madison FISCHER The patient was interviewed and examined by me. He is oriented to person only. He was able to tell my his age after a few minutes of thought. He cannot tell me where he is, answering [place], [place]. He cannot tell me the year. He is unaware that he is in the hospital. He does complain of SEVERE back pain. He denies any other complaints to me. He has multiple myeloma with pancytopenia. His Plts, hgb have been up and down quite a bit over the last year. His plts have ranged from 3.4 to 160, Hgb 7.9-9.6, WBC 1.4-9.8. He has been mildly hypernatremic chronically as well. He had an echo which showed EF 40%, LAE, Mild TR, Mild MR, Mild PHTN. He denies SOA, CP, Palp, N/V/D/C, lightheadedness. He just keeps telling me about his back pain. His BP was quite elevated on admission. It is improving. CT of the head shows no evidence of a bleed. In general he is confused and only oriented to person. His skin is warm and dry. HEENT: NC/AT PERRL, EOMI, sclera, lids and conjunctiva wnl. MMM. OP clear. Neck: no JVD, Carotids 2+ without bruits. Lungs are clear but diminished. Heart is irregular. Tele shows SR with pacs. +soft murmur. Abd: soft. +BS. MS: 1+ edema bilaterally. Neuro: no focal deficits. He has qualified for inpatient status. He will likely need skilled care on discharge. I have reviewed his labs and imaging. I have reviewed the assessment and plan. I have discussed pt with the INVENTORY CLERK who has also contacted the son and daughter who are both DPOAs. They have been updated. Hospital Course Summary Disclaimer: The visit summary below is not to be considered part of the above Progress Note. Hospital Course: 08/17/17 Impression Acute encephalopathy Hypernatremia Uncontrolled hypertension Multiple falls Pancytopenia Multiple myeloma Hypertension Chronic kidney disease Dementia Plan Initially admit outpatient observation under the care of Dr Wallace for cephalopathy, multiple falls and hypernatremia. Obtain a CT scan of the head. Given multiple unwitnessed falls, accompanied with an acute encephalopathy and uncontrolled hypertension to rule out intracranial abnormality or bleeding. Regarding hypernatremia. Will place patient on half-normal saline at 100 ML per hour for gentle hydration. Will resume home antihypertensive medications including hydralazine 10 milligrams 3 times a day, isosorbide 10 milligrams 3 times a day. Monitor blood counts. Acute thrombocytopenia- PLT on admission 82. Chronic pancytopenia related to multiple myeloma Consult speech therapy to evaluate swallow given weakness and encephalopathy Consider PT/OT screen once more medially stable given weakness and multiple falls. Again, patient is a do not resuscitate and this orders written Recheck CBC and BMP tomorrow morning to follow blood counts, renal function and electrolytes Orders and plan of care discussed with attending, Dr Wallace Discuss with case management. Patient does meet criteria to change to inpatient status given. Acute encephalopathy, accompanied with chronic kidney disease and uncontrolled hypertension. Will change status to inpatient.
[2017-08-17 15:19] VITALS: BMI 25.0
[2017-08-17] MEDS: HYDRALAZINE 10 MG TABLET PO SCH ×3 (17:02→21:32)
[2017-08-17] MEDS: ISOSORBIDE DINITRATE 10 MG TABLET PO SCH ×2 (17:32→21:32)
[2017-08-17] MEDS: CARVEDILOL 3.125 MG TABLET PO SCH (19:08)
[2017-08-17] MEDS: SERTRALINE 25 MG TABLET PO SCH (21:15)
[2017-08-17] MEDS: RisperiDONE 0.5 MG TABLET PO SCH (21:15)
[2017-08-17] MEDS: DOCUSATE SODIUM 100 MG CAPSULE PO SCH (21:15)
[2017-08-17] MEDS: ACETAMINOPHEN 325 MG TABLET PO PRN (21:31)
[2017-08-17] MEDS: SALINE FLUSH 10ml SYRINGE IV PRN (21:34)
[2017-08-18] MEDS: OMEPRAZOLE 20 MG CAPSULE PO SCH (05:51)
[2017-08-18] MEDS: CARVEDILOL 3.125 MG TABLET PO SCH ×2 (09:43→18:32)
[2017-08-18] MEDS: CALCITRIOL 0.25 MCG CAPSULE PO SCH (09:44)
[2017-08-18] MEDS: ISOSORBIDE DINITRATE 10 MG TABLET PO SCH (09:44)
[2017-08-18] MEDS: DOCUSATE SODIUM 100 MG CAPSULE PO SCH ×2 (09:44→21:12)
[2017-08-18] MEDS: HYDRALAZINE 10 MG TABLET PO SCH ×3 (09:44→21:12)
[2017-08-18] MEDS: RisperiDONE 0.5 MG TABLET PO SCH (09:45)
--- NOTE | 2017-08-18 10:02 | CT Scan Report ---
Indication: unwitnessed falls, found down, history of multiple recent falls. PROCEDURE: CT head/brain wo con: Encounter: Initial Comparison: December 19, 2016 Technique: Axial CT images through the head were performed without contrast. Iterative Reconstruction dose reducing technique was utilized. FINDINGS: Mild atrophy. The ventricles are of normal size, shape, and configuration for the patient's age. There is no evidence of acute intracranial hemorrhage, midline displacement, or mass effect. There are scattered areas of low attenuation in the white matter which most likely represent changes of chronic microvascular ischemia. The CT attenuation of the brain parenchyma is otherwise normal within the cerebellum, brain stem, and cerebral hemispheres. The tympanic cavities and mastoid air cells are free of appreciable disease. There are no definite fractures of the skull base, calvarium, or visualized portion of the midface. IMPRESSION: No CT evidence of acute traumatic intracranial injury. There is a preliminary report by [employer] [facility]. .
--- NOTE | 2017-08-18 10:49 | Progress Note ---
- Date 08/18/17 Subjective: Mr Mendoza is a 82 yr old male who recently moved from [place] to [facility] last week. He is currently residing with his fiance at [facility] in the independent apartments. Over the past 4 days he has had 3 different falls and has developed increased weakness with encephalopathy over the last 24 hours. Patient was seen in the emergency room following a fall on 08/13. 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 Patient was discharged home, however, proceeded to fall again this morning. At this time. His significant other was unable to assist him to get up. She called EMS. Patient was brought back to the emergency room today for acute evaluation and treatment. Basic laboratory studies are obtained, WBC count is low at 4.1, RBCs 2.62, hemoglobin 9.3, hematocrit 28.5, platelet count 82. Sodium was found to be elevated at 148, potassium 3.7, BUN 59 , creatinine 3.4. This is not far from patient's baseline as he does have known history of chronic kidney disease. On arrival to the emergency room this morning. His blood pressure was 202/116. Blood pressure was consistently elevated and at time of admission, remains 189/139. On physician exam , Mr Mendoza is alert with eyes open, however, is unable to answer questions appropriately. When asked if he hurts he began to talk about "curtains". Family report this is not his normal mental status. Normally he is able to carry on a normal conversation even with hx of dementia. Significant other is unable to give any health history. Spoke with daughter- Gladys Hightower- DPOA- [phone] and Son- Beto Mendoza- DPOA- [phone]. Both report that they were talking with [facility] staff, Brinda Rahman about admission to the [facility] a program for rehabilitation and strengthening. Daughter did report that pt is DNR. Today, he is resting comfortably. He is not wanting to talk to me. I had to strongly encourage him to open his eyes for me. He did follow all commands otherwise. He is still confused and what he says does not make much sense this am. ROS is not obtainable. He was given ativan for sleep last night. His BP are elevated. He is on RA. His labs are a bit better today. Objective Vital signs: Temperature 98.3 F 08/18/17 08:00 Pulse Rate 76 08/18/17 08:00 Respiratory Rate 18 08/18/17 08:00 Blood Pressure 189/105 H 08/18/17 09:35 Pulse Oximetry 98 08/18/17 08:00 Height/Weight/BMI: Weight 69 kg Comments: Gen: Awake but not oriented. No talkative. Skin: warm and dry HEENT: NC/AT PERRL, EOMI, Sclera and conjunctiva wnl, MMM, OP clear Neck: supple. No JVD, Carotids 2+ without bruits. Lungs: clear, No rales, rhonchi, wheezes. CV: regular. No murmur, rub or gallop Abd: soft. NT/ND, +BS MS: No edema. Neuro: No focal deficit, good rn gyn strength bilaterally Results - Labs CBC & Chem 7: 08/18/17 04:19 08/18/17 04:19 Assessment and Plan (1) Acute encephalopathy Current visit: Yes Status: Acute (2) Hypernatremia Current visit: Yes Status: Acute Assessment and Plan: 1. Acute encephalopathy -On chronic dementia 2. Hypernatremia, present on admission-148 -He does run chronically high at least since Sep 2016 3. Uncontrolled hypertension -Coreg added yesterday to his isordil and hydralazine -WIll not likely tolerate more coreg as he is bradycardia, His EF is low so I will try to avoid Ca ch bl. for now -Compliance is difficult with TID medications even in a non demented pt. -Will change isordil to imdur (only once a day) -Would like to see if we could get off hydralazine 4. Multiple falls -Unclear etiology, weakness? -Check orthostatic BPs -PT/OT -suspect he will need NH placement. 5. Pancytopenia -chronic 6. Multiple myeloma -Sees Dr. Christie 7. Chronic kidney disease stage 4 -Sees Dr. Mcnamara -Creatinine a bit better this am. 8. Cardiomyopathy -EF 40% in Sep 2016 -No TRAN I due to renal function -On Coreg, likely as high a dose as his HR will tolerate. -No evidence of acute HF. 9. Prophylaxis -PPI, SCDs Hospital Course Summary Disclaimer: The visit summary below is not to be considered part of the above Progress Note. Hospital Course: 08/17/17 Impression Acute encephalopathy Hypernatremia Uncontrolled hypertension Multiple falls Pancytopenia Multiple myeloma Hypertension Chronic kidney disease Dementia Plan Initially admit outpatient observation under the care of Dr Wallace for cephalopathy, multiple falls and hypernatremia. Obtain a CT scan of the head. Given multiple unwitnessed falls, accompanied with an acute encephalopathy and uncontrolled hypertension to rule out intracranial abnormality or bleeding. Regarding hypernatremia. Will place patient on half-normal saline at 100 ML per hour for gentle hydration. Will resume home antihypertensive medications including hydralazine 10 milligrams 3 times a day, isosorbide 10 milligrams 3 times a day. Monitor blood counts. Acute thrombocytopenia- PLT on admission 82. Chronic pancytopenia related to multiple myeloma Consult speech therapy to evaluate swallow given weakness and encephalopathy Consider PT/OT screen once more medially stable given weakness and multiple falls. Again, patient is a do not resuscitate and this orders written Recheck CBC and BMP tomorrow morning to follow blood counts, renal function and electrolytes Orders and plan of care discussed with attending, Dr Wallace Discuss with case management. Patient does meet criteria to change to inpatient status given. Acute encephalopathy, accompanied with chronic kidney disease and uncontrolled hypertension. Will change status to inpatient.
[2017-08-18] MEDS ORDERED: HYDRALAZINE 10 MG TABLET PO SCH (12:00)
[2017-08-18] MEDS: ISOSORBIDE MONONITRATE ER 60 MG TABLET PO SCH (12:21)
[2017-08-18] MEDS ORDERED: FALL RISK - PHARMACY CONSULT XX ONE (14:41)
[2017-08-18] MEDS ORDERED: HYDRALAZINE 20 MG/ML INJECTION IVP ONE (15:52)
[2017-08-18] MEDS ORDERED: HYDRALAZINE 20 MG/ML INJECTION IVP PRN (17:20)
[2017-08-18] MEDS: SERTRALINE 25 MG TABLET PO SCH (21:12)
[2017-08-19] MEDS ORDERED: HALOPERIDOL 5 MG/ML INJECTION IVP PRN (01:38)
[2017-08-19] MEDS: ISOSORBIDE MONONITRATE ER 60 MG TABLET PO SCH (07:20)
[2017-08-19] MEDS: OMEPRAZOLE 20 MG CAPSULE PO SCH (07:21)
[2017-08-19] MEDS: HYDRALAZINE 10 MG TABLET PO SCH ×3 (09:50→21:22)
[2017-08-19] MEDS: CARVEDILOL 3.125 MG TABLET PO SCH ×2 (09:50→18:51)
[2017-08-19] MEDS: DOCUSATE SODIUM 100 MG CAPSULE PO SCH ×2 (09:50→21:46)
[2017-08-19] MEDS: CALCITRIOL 0.25 MCG CAPSULE PO SCH (09:50)
[2017-08-19] MEDS: 1/2 NS 1,000 ML IV SCH (14:00)
--- NOTE | 2017-08-19 14:10 | Progress Note ---
<Carmen Turner - Last Filed: 08/19/17 14:07> - Date 08/19/17 Subjective: Patient is seen today lying in bed. He will not wake up for me. Nurse tells me he was up last night due to sleeping most of the day yesterday. He was given Haldol overnight at 0156 for agitation. He has not had anything to eat or drink yesterday or today.His head CT on admission was neg. Per previous history , usually he is able to carry on a normal conversation even with hx of dementia. Objective Vital signs: Temperature 96.2 F L 08/19/17 09:47 Pulse Rate 75 08/19/17 09:47 Respiratory Rate 14 08/19/17 09:47 Blood Pressure 113/78 08/19/17 09:47 Pulse Oximetry 96 08/19/17 09:47 Height/Weight/BMI: Weight 67.6 kg - Constitutional Present: no acute distress, well nourished, well developed - Routine HEENT Exam Head: Present: normocephalic, atraumatic - Routine Respiratory Exam Present: CTA bilaterally. Absent: wheezes - Routine Cardiovascular Exam Present: RRR. Absent: murmur - Routine Abdominal Exam Present: soft, normoactive bowel sounds, non distended. Absent: tenderness - Routine Extremities Exam Present: no edema, normal capillary refill - Routine Skin Exam Present: dry, warm - Routine Neurological Exam Absent: alert (will not wake up for exam), oriented X3 - Routine Lymphatic Exam Lymphatic: Absent: adenopathy - Routine Psychiatric Exam Present: unable to assess. Absent: normal affect Results - Labs CBC & Chem 7: 08/19/17 04:42 08/19/17 04:42 - ABG Interpretation ABG results: 08/18/17 17:18 ABG pH 7.420 ABG pCO2 37 ABG pO2 86 ABG HCO3 24 ABG Total CO2 25.1 ABG O2 Saturation 97.0 ABG Base Excess -0.2 Assessment and Plan (1) Acute encephalopathy Current visit: Yes Status: Acute (2) Hypernatremia Current visit: Yes Status: Acute Assessment and Plan: Assessment Acute encephalopathy Dementia Hypernatremia, POA (He does run chronically high at least since Sep 2016) Uncontrolled hypertension Multiple falls -Unclear etiology, weakness? Pancytopenia-chronic Multiple myeloma (Sees Dr. Christie ) Chronic kidney disease stage 4 (Sees Dr. Mcnamara) Cardiomyopathy -EF 40% in Sep 2016 Plan As patient is not taking po will start IVF's - 1/2NS at 75 mls/hr. Coreg added 08/17. BP's are better, but not consistently to goal. Continue to monitor. Hospital Course Summary Disclaimer: The visit summary below is not to be considered part of the above Progress Note. Hospital Course: Acute encephalopathy Dementia Hypernatremia, POA (He does run chronically high at least since Sep 2016) Uncontrolled hypertension Multiple falls -Unclear etiology, weakness? Pancytopenia-chronic Multiple myeloma (Sees Dr. Christie ) Chronic kidney disease stage 4 (Sees Dr. Mcnamara) Cardiomyopathy -EF 40% in Sep 2016 08/17/17-hospital admission Initially admit outpatient observation under the care of Dr Wallace for cephalopathy, multiple falls and hypernatremia. Obtain a CT scan of the head. Given multiple unwitnessed falls, accompanied with an acute encephalopathy and uncontrolled hypertension to rule out intracranial abnormality or bleeding. Regarding hypernatremia. Will place patient on half-normal saline at 100 ML per hour for gentle hydration. Will resume home antihypertensive medications including hydralazine 10 milligrams 3 times a day, isosorbide 10 milligrams 3 times a day. Monitor blood counts. Acute thrombocytopenia- PLT on admission 82. Chronic pancytopenia related to multiple myeloma Consult speech therapy to evaluate swallow given weakness and encephalopathy Consider PT/OT screen once more medially stable given weakness and multiple falls. Again, patient is a do not resuscitate and this orders written Recheck CBC and BMP tomorrow morning to follow blood counts, renal function and electrolytes Orders and plan of care discussed with attending, Dr Wallace Discuss with case management. Patient does meet criteria to change to inpatient status given. Acute encephalopathy, accompanied with chronic kidney disease and uncontrolled hypertension. Will change status to inpatient. 08/18/17 Isordil TID changed to imdur qd (for better compliance) Would like to see if we could get him off hydralazine Check orthostatic BP's given the multiple falls 08/19/17 As not taking po, will start IVF's - 1/2NS at 75 mls/hr. Coreg added 08/17/17. BP's are better, but not consistently to goal. Continue to monitor. <Jesus Kennedy D - Last Filed: 08/19/17 16:24> - Date 08/19/17 Objective Vital signs: Temperature 97.1 F 08/19/17 16:02 Pulse Rate 69 08/19/17 16:02 Respiratory Rate 16 08/19/17 16:02 Blood Pressure 133/77 08/19/17 16:02 Pulse Oximetry 95 08/19/17 16:02 Height/Weight/BMI: Weight 67.6 kg Results - Labs CBC & Chem 7: 08/19/17 04:42 08/19/17 04:42 - ABG Interpretation ABG results: 08/18/17 17:18 ABG pH 7.420 ABG pCO2 37 ABG pO2 86 ABG HCO3 24 ABG Total CO2 25.1 ABG O2 Saturation 97.0 ABG Base Excess -0.2 Assessment and Plan (1) Acute encephalopathy Current visit: Yes Status: Acute (2) Hypernatremia Current visit: Yes Status: Acute Assessment and Plan: Assessment Acute encephalopathy Dementia Hypernatremia, POA (He does run chronically high at least since Sep 2016) Uncontrolled hypertension Multiple falls -Unclear etiology, weakness? Pancytopenia-chronic Multiple myeloma (Sees Dr. Christie) Chronic kidney disease stage 4 (Sees Dr. Mcnamara) Cardiomyopathy -EF 40% in Sep 2016 Have independently interviewed & examined pt. Chart reviewed. Case discussed with CM & my PA. Care plan developed with my supervision; agree with above. Somnolent this afternoon. Was more wake this am. Not taking oral in due to somnolence. Fiancee at bedside. Lungs: decreased, no distress CV: regular with occasional ectopy Ab: soft nt/nd BS decreased Plan: Start 1/2NS at 75cc/hr to help hydration as oral drive decreased. Decrease Haldol to 0.5mg (prn) to minimize sedation. Trial of Solu-Cortef 25mg IV q 8 hours. Decline concerning-? progression of MM or dementia. Case discussed with CM and patient's fiancee. Time spent with patient care 25 minutes. DVT Prophylaxis: SCD's Resuscitation Status: Do Not Resuscitate - Time spent with patient Time with patient PN: 25 minutes Hospital Course Summary Disclaimer: The visit summary below is not to be considered part of the above Progress Note.
[2017-08-19] MEDS: HYDROCORTISONE SOD SUCC 100mg/2ml INJECTION IVP SCH (18:50)
[2017-08-19] MEDS: RisperiDONE 0.5 MG TABLET PO SCH (21:46)
[2017-08-19] MEDS: SERTRALINE 25 MG TABLET PO SCH (21:46)
[2017-08-19] MEDS: HALOPERIDOL 5 MG/ML INJECTION IVP PRN (22:05)
[2017-08-20] MEDS: HYDROCORTISONE SOD SUCC 100mg/2ml INJECTION IVP SCH ×3 (00:48→16:58)
[2017-08-20] MEDS: HYDRALAZINE 20 MG/ML INJECTION IVP PRN (02:34)
[2017-08-20] MEDS: 1/2 NS 1,000 ML IV SCH ×2 (04:49→17:45)
[2017-08-20] MEDS: ISOSORBIDE MONONITRATE ER 60 MG TABLET PO SCH (06:15)
[2017-08-20] MEDS: OMEPRAZOLE 20 MG CAPSULE PO SCH (06:19)
[2017-08-20] MEDS: CALCITRIOL 0.25 MCG CAPSULE PO SCH (09:14)
[2017-08-20] MEDS: HYDRALAZINE 10 MG TABLET PO SCH ×3 (09:14→20:09)
[2017-08-20] MEDS: CARVEDILOL 3.125 MG TABLET PO SCH ×2 (09:14→16:59)
[2017-08-20] MEDS: DOCUSATE SODIUM 100 MG CAPSULE PO SCH ×2 (09:20→20:07)
[2017-08-20] MEDS ORDERED: PAMIDRONATE IV SCH (14:30)
[2017-08-20] MEDS ORDERED: NS IV SCH ×2 (14:30→14:45)
--- NOTE | 2017-08-20 14:38 | Progress Note ---
- Date 08/20/17 Subjective: F/U: Acute encephalopathy, Hypernatremia, Multiple Myeloma Still very somnolent this afternoon, but would wake on and speak with short phrases. Alma Delai reports was more awake and alert this morning-able to eat some breakfast this morning. Breathing has been stable. Not able to give much information this evening. Objective Vital signs: Temperature 96.3 F L 08/20/17 08:00 Pulse Rate 70 08/20/17 08:00 Respiratory Rate 18 08/20/17 08:00 Blood Pressure 122/69 08/20/17 08:00 Pulse Oximetry 94 08/20/17 08:00 Height/Weight/BMI: Weight 64.9 kg - Constitutional Present: well nourished, well developed, somnolent - Routine HEENT Exam Head: Present: normocephalic, atraumatic Eye: Present: EOMI, PERRL - Routine Respiratory Exam Present: CTA bilaterally. Absent: rales, respiratory distress, rhonchi, wheezes , crackles - Routine Cardiovascular Exam Present: RRR, no murmur - Routine Abdominal Exam Present: soft, normoactive bowel sounds, non distended, non tender - Routine Extremities Exam Present: cyanosis, clubbing, no edema, pulses intact - Routine Skin Exam Present: dry, warm - Routine Neurological Exam Present: altered mental status - Routine Psychiatric Exam Present: unable to assess (Somnolent. ) Results - Labs CBC & Chem 7: 08/20/17 03:56 08/20/17 03:56 - ABG Interpretation ABG results: 08/18/17 17:18 ABG pH 7.420 ABG pCO2 37 ABG pO2 86 ABG HCO3 24 ABG Total CO2 25.1 ABG O2 Saturation 97.0 ABG Base Excess -0.2 Assessment and Plan (1) Acute encephalopathy Current visit: Yes Status: Acute (2) Hypernatremia Current visit: Yes Status: Acute Assessment and Plan: Assessment Acute encephalopathy Dementia Hypernatremia, POA (He does run chronically high at least since Sep 2016) Hypercalcemia (POA) Elevated uric acid Uncontrolled hypertension Multiple falls -Unclear etiology, weakness? Pancytopenia-chronic Multiple myeloma (Sees Dr. Christie) Chronic kidney disease stage 4 (Sees Dr. Mcnamara) Cardiomyopathy -EF 40% in Sep 2016 Plan Case discussed with Dr Christie. Reviewed status and lab. Recommends pamidronate 90mg for hypercalcemia - pharm will have to order in, anticipate giving tomorrow. Recommends raspuricase for elevated uric acid - with give 7.5mg IV daily for 3 days Agrees with Solu-Cortef pulse dose - can continues for 4 days, does not need taper. Serum free light chain immunoassay for evaluation of multiple myeloma. Dr Christie's input greatly appreciated. Sodium still with elevation at 147 - will increase 1/2NS to 125cc/hr and monitor. Creatinine stable at 2.7. With above treatments, hope to see improvement of his encephalopathy. Patient more awake this morning and able to take some intake. Continue lab monitoring. Case discussed with CM, Dr Christie and patient's zamzame. Time spent with patient' s care 35 minutes. Have independently interviewed & examined pt. Chart reviewed. Case discussed with CM & my PA. Care plan developed with my supervision; agree with above. Somnolent this afternoon. Was more wake this am. Not taking oral in due to somnolence. Fiancee at bedside. Lungs: decreased, no distress CV: regular with occasional ectopy Ab: soft nt/nd BS decreased Plan: Start 1/2NS at 75cc/hr to help hydration as oral drive decreased. Decrease Haldol to 0.5mg (prn) to minimize sedation. Trial of Solu-Cortef 25mg IV q 8 hours. Decline concerning-? progression of MM or dementia. Case discussed with CM and patient's zamzame. Time spent with patient care 25 minutes. DVT Prophylaxis: SCD's Resuscitation Status: Do Not Resuscitate Hospital Course Summary Disclaimer: The visit summary below is not to be considered part of the above Progress Note. Hospital Course: Acute encephalopathy Dementia Hypernatremia, POA (He does run chronically high at least since Sep 2016) Uncontrolled hypertension Multiple falls -Unclear etiology, weakness? Pancytopenia-chronic Multiple myeloma (Sees Dr. Christie) Chronic kidney disease stage 4 (Sees Dr. Mcnamara) Cardiomyopathy -EF 40% in Sep 2016 08/17/17-hospital admission Initially admit outpatient observation under the care of Dr Wallace for cephalopathy, multiple falls and hypernatremia. Obtain a CT scan of the head. Given multiple unwitnessed falls, accompanied with an acute encephalopathy and uncontrolled hypertension to rule out intracranial abnormality or bleeding. Regarding hypernatremia. Will place patient on half-normal saline at 100 ML per hour for gentle hydration. Will resume home antihypertensive medications including hydralazine 10 milligrams 3 times a day, isosorbide 10 milligrams 3 times a day. Monitor blood counts. Acute thrombocytopenia- PLT on admission 82. Chronic pancytopenia related to multiple myeloma Consult speech therapy to evaluate swallow given weakness and encephalopathy Consider PT/OT screen once more medially stable given weakness and multiple falls. Again, patient is a do not resuscitate and this orders written Recheck CBC and BMP tomorrow morning to follow blood counts, renal function and electrolytes Discuss with case management. Patient does meet criteria to change to inpatient status given. Acute encephalopathy, accompanied with chronic kidney disease and uncontrolled hypertension. Will change status to inpatient. 08/18/17 Isordil TID changed to imdur qd (for better compliance) Would like to see if we could get him off hydralazine Check orthostatic BP's given the multiple falls 08/19/17 As not taking po, will start IVF's - 1/2NS at 75 mls/hr. Coreg added 08/17/17. BP's are better, but not consistently to goal. Continue to monitor. 08/20/[address] Christie. Reviewed status and lab. Recommends pamidronate 90mg for hypercalcemia - pharm will have to order in, anticipate giving tomorrow. Recommends raspuricase for elevated uric acid - with give 7.5mg IV daily for 3 days Agrees with Solu-Cortef pulse dose - can continues for 4 days, does not need taper. Serum free light chain immunoassay for evaluation of multiple myeloma. Dr Christie's input greatly appreciated. Sodium still with elevation at 147 - will increase 1/2NS to 125cc/hr and monitor. Creatinine stable at 2.7. With above treatments, hope to see improvement of his encephalopathy. Patient more awake this morning and able to take some intake.
[2017-08-20] MEDS ORDERED: RASBURICASE IV SCH (14:45)
[2017-08-20] MEDS: SERTRALINE 25 MG TABLET PO SCH (20:09)
[2017-08-20] MEDS: RisperiDONE 0.5 MG TABLET PO SCH (20:09)
[2017-08-21] MEDS: HYDROCORTISONE SOD SUCC 100mg/2ml INJECTION IVP SCH ×3 (00:41→18:24)
[2017-08-21] MEDS: 1/2 NS 1,000 ML IV SCH (02:29)
[2017-08-21] MEDS: ISOSORBIDE MONONITRATE ER 60 MG TABLET PO SCH (05:45)
[2017-08-21] MEDS: OMEPRAZOLE 20 MG CAPSULE PO SCH (05:56)
[2017-08-21] MEDS: CALCITRIOL 0.25 MCG CAPSULE PO SCH (08:32)
[2017-08-21] MEDS: DOCUSATE SODIUM 100 MG CAPSULE PO SCH ×2 (08:33→22:36)
[2017-08-21] MEDS: CARVEDILOL 3.125 MG TABLET PO SCH ×3 (08:33→18:33)
[2017-08-21] MEDS: HYDRALAZINE 10 MG TABLET PO SCH ×3 (08:33→22:36)
[2017-08-21] MEDS ORDERED: PAMIDRONATE IV SCH (11:00)
[2017-08-21] MEDS ORDERED: NS IV SCH (11:00)
--- NOTE | 2017-08-21 13:32 | Progress Note ---
- Date 08/21/17 Subjective: F/U: Acute encephalopathy, Hypernatremia, Multiple Myeloma Less responsive today. Not waking up and able to converse like yesterday morning. Will move ext spontaneously, but not able to follow commands. Breathing without distress. Fiancee at bedside. Objective Vital signs: Temperature 97.2 F 08/21/17 07:42 Pulse Rate 59 L 08/21/17 07:42 Respiratory Rate 18 08/21/17 07:42 Blood Pressure 191/95 H 08/21/17 07:42 Pulse Oximetry 98 08/21/17 07:42 Height/Weight/BMI: Weight 68.5 kg - Constitutional Present: well nourished, well developed, average body habitus, obtunded - Routine HEENT Exam Head: Present: normocephalic, atraumatic ENT: Present: mucous membranes moist - Routine Respiratory Exam Present: decreased breath sounds. Absent: respiratory distress, rhonchi, wheezes, crackles - Routine Cardiovascular Exam Present: RRR - Routine Abdominal Exam Present: soft, normoactive bowel sounds, non distended, non tender - Routine Extremities Exam Present: no edema. Absent: cyanosis, clubbing - Routine Musculoskeletal Exam Musculoskeletal: Present: no clubbing or cyanosis - Routine Skin Exam Present: dry, warm - Routine Neurological Exam Present: altered mental status (Somnolent/obtunded ) - Routine Psychiatric Exam Comments: Somnolent. Results - Labs CBC & Chem 7: 08/21/17 04:14 08/21/17 04:14 Assessment and Plan (1) Acute encephalopathy Current visit: Yes Status: Acute (2) Hypernatremia Current visit: Yes Status: Acute Assessment and Plan: Assessment Acute encephalopathy Dementia Hypernatremia, POA (He does run chronically high at least since Sep 2016) Hypercalcemia (POA) Elevated uric acid Uncontrolled hypertension Multiple falls -Unclear etiology, weakness? Pancytopenia-chronic Multiple myeloma (Sees Dr. Christie) Chronic kidney disease stage 4 (Sees Dr. Mcnamara) Cardiomyopathy -EF 40% in Sep 2016 Plan Mentation not improving-not interacting verbally and no able to take oral. Sodium did decrease to 145. Creatinine with slight decrease to 2.4. Uric acid with significant decrease post raspuricase yesterday. Will hold on remaining doses for not. Pamidronate given today for hypercalcemia. Change IVF to 1/2NS with 20 KCL as potassium with decrease to 3.4. Persistent encephalopathy worrisome. Hope with treatments will improve, but with decline noted I'm not optimistic. Discussed with dejan. Continue lab monitoring. Time spent with patient care 25 minutes. DVT Prophylaxis: SCD's Resuscitation Status: Do Not Resuscitate Hospital Course Summary Disclaimer: The visit summary below is not to be considered part of the above Progress Note. Hospital Course: Acute encephalopathy Dementia Hypernatremia, POA (He does run chronically high at least since Sep 2016) Uncontrolled hypertension Multiple falls -Unclear etiology, weakness? Pancytopenia-chronic Multiple myeloma (Sees Dr. Christie) Chronic kidney disease stage 4 (Sees Dr. Mcnamara) Cardiomyopathy -EF 40% in Sep 2016 08/17/17-hospital admission Initially admit outpatient observation under the care of Dr Wallace for cephalopathy, multiple falls and hypernatremia. Obtain a CT scan of the head. Given multiple unwitnessed falls, accompanied with an acute encephalopathy and uncontrolled hypertension to rule out intracranial abnormality or bleeding. Regarding hypernatremia. Will place patient on half-normal saline at 100 ML per hour for gentle hydration. Will resume home antihypertensive medications including hydralazine 10 milligrams 3 times a day, isosorbide 10 milligrams 3 times a day. Monitor blood counts. Acute thrombocytopenia- PLT on admission 82. Chronic pancytopenia related to multiple myeloma Consult speech therapy to evaluate swallow given weakness and encephalopathy Consider PT/OT screen once more medially stable given weakness and multiple falls. Again, patient is a do not resuscitate and this orders written Recheck CBC and BMP tomorrow morning to follow blood counts, renal function and electrolytes Discuss with case management. Patient does meet criteria to change to inpatient status given. Acute encephalopathy, accompanied with chronic kidney disease and uncontrolled hypertension. Will change status to inpatient. 08/18/17 Isordil TID changed to imdur qd (for better compliance) Would like to see if we could get him off hydralazine Check orthostatic BP's given the multiple falls 08/19/17 As not taking po, will start IVF's - 1/2NS at 75 mls/hr. Coreg added 08/17/17. BP's are better, but not consistently to goal. Continue to monitor. 08/20/[address] Christie. Reviewed status and lab. Recommends pamidronate 90mg for hypercalcemia - pharm will have to order in, anticipate giving tomorrow. Recommends raspuricase for elevated uric acid - with give 7.5mg IV daily for 3 days Agrees with Solu-Cortef pulse dose - can continues for 4 days, does not need taper. Serum free light chain immunoassay for evaluation of multiple myeloma. Dr Christie's input greatly appreciated. Sodium still with elevation at 147 - will increase 1/2NS to 125cc/hr and monitor. Creatinine stable at 2.7. With above treatments, hope to see improvement of his encephalopathy. Patient more awake this morning and able to take some intake. 08/21/17 Mentation not improving-not interacting verbally and no able to take oral. Sodium did decrease to 145. Creatinine with slight decrease to 2.4. Uric acid with significant decrease post raspuricase yesterday. Will hold on remaining doses for not. Pamidronate given today for hypercalcemia. Change IVF to 1/2NS with 20 KCL as potassium with decrease to 3.4. Persistent encephalopathy worrisome. Hope with treatments will improve, but with decline noted I'm not optimistic. Discussed with dejan. Continue lab monitoring.
[2017-08-21] MEDS: 1/2 NS with KCL 20mEq 1,000 ML IV SCH (15:52)
[2017-08-21] MEDS: HYDRALAZINE 20 MG/ML INJECTION IVP PRN (16:05)
[2017-08-21] MEDS: SERTRALINE 25 MG TABLET PO SCH (22:36)
[2017-08-21] MEDS: RisperiDONE 0.5 MG TABLET PO SCH (22:36)
[2017-08-22] MEDS: 1/2 NS with KCL 20mEq 1,000 ML IV SCH ×3 (00:03→16:32)
[2017-08-22] MEDS: HALOPERIDOL 5 MG/ML INJECTION IVP PRN ×3 (02:28→22:26)
[2017-08-22] MEDS: HYDROCORTISONE SOD SUCC 100mg/2ml INJECTION IVP SCH ×3 (02:28→17:06)
[2017-08-22] MEDS: ISOSORBIDE MONONITRATE ER 60 MG TABLET PO SCH (06:03)
[2017-08-22] MEDS: OMEPRAZOLE 20 MG CAPSULE PO SCH (06:03)
[2017-08-22] MEDS: 1/2 NS 1,000 ML IV SCH (07:19)
[2017-08-22] MEDS: CALCITRIOL 0.25 MCG CAPSULE PO SCH (08:34)
[2017-08-22] MEDS: CARVEDILOL 3.125 MG TABLET PO SCH ×2 (08:34→17:06)
[2017-08-22] MEDS: HYDRALAZINE 10 MG TABLET PO SCH ×3 (08:34→21:17)
[2017-08-22] MEDS: DOCUSATE SODIUM 100 MG CAPSULE PO SCH ×2 (08:40→21:17)
--- NOTE | 2017-08-22 11:32 | Progress Note ---
- Date 08/22/17 Subjective: F/U: Acute encephalopathy, Hypernatremia, Multiple Myeloma Resting in bed. Will open eyes and attempt to communicate; not making sense. Oral drive decreased-nursing reports did eat about 20% dinner last night. Breathing unlabored. Sodium and calcium normalized. Fiancee at bedside. Objective Vital signs: Temperature 97.0 F 08/22/17 08:25 Pulse Rate 74 08/22/17 08:25 Respiratory Rate 18 08/22/17 08:25 Blood Pressure 197/96 H 08/22/17 08:25 Pulse Oximetry 97 08/22/17 08:25 Height/Weight/BMI: Weight 69.7 kg - Constitutional Present: well nourished, well developed, average body habitus, somnolent. Absent: combative, agitated - Routine HEENT Exam Head: Present: normocephalic, atraumatic Eye: Present: EOMI, PERRL ENT: Present: mucous membranes moist - Routine Respiratory Exam Present: decreased breath sounds. Absent: respiratory distress, wheezes, crackles - Routine Cardiovascular Exam Present: RRR, no murmur - Routine Abdominal Exam Present: soft, normoactive bowel sounds, non distended, non tender - Routine Extremities Exam Present: no edema, pulses intact. Absent: cyanosis, clubbing - Routine Musculoskeletal Exam Musculoskeletal: Present: no clubbing or cyanosis - Routine Skin Exam Present: dry, warm. Absent: pallor, mottling - Routine Neurological Exam Present: altered mental status - Routine Psychiatric Exam Present: unable to assess (somnolent, encephalopathic ) Results - Labs CBC & Chem 7: 08/22/17 04:03 08/22/17 04:03 Assessment and Plan (1) Acute encephalopathy Current visit: Yes Status: Acute (2) Hypernatremia Current visit: Yes Status: Acute Assessment and Plan: Assessment Acute encephalopathy Dementia Multiple myeloma (Sees Dr. Christie) Hypernatremia, POA (He does run chronically high at least since Sep 2016) Hypercalcemia (POA) Elevated uric acid Uncontrolled hypertension Multiple falls -Unclear etiology, weakness? Pancytopenia-chronic Chronic kidney disease stage 4 (Sees Dr. Mcnamara) Cardiomyopathy -EF 40% in Sep 2016 Plan Sodium normalized to 144. Calcium decrease to 9.7. Potassium 3.6. Uric acid undetectable. Mentation with overall little improvement - verbalizes some, but still encephalopathic. Will try B12 injections to see if this helps. Continue Solu-Cortef. Continue IVF for support. Discussed case with patient's son - lack of improvement worrisome. Potentially need Hospice if not seeing improvement. Case discussed with dejan and pt's son. Time spent with patient care 35 minutes. DVT Prophylaxis: SCD's Resuscitation Status: Do Not Resuscitate Hospital Course Summary Disclaimer: The visit summary below is not to be considered part of the above Progress Note. Hospital Course: Acute encephalopathy Dementia Hypernatremia, POA (He does run chronically high at least since Sep 2016) Uncontrolled hypertension Multiple falls -Unclear etiology, weakness? Pancytopenia-chronic Multiple myeloma (Sees Dr. Christie) Chronic kidney disease stage 4 (Sees Dr. Mcnamara) Cardiomyopathy -EF 40% in Sep 2016 08/17/17-hospital admission Initially admit outpatient observation under the care of Dr Wallace for cephalopathy, multiple falls and hypernatremia. Obtain a CT scan of the head. Given multiple unwitnessed falls, accompanied with an acute encephalopathy and uncontrolled hypertension to rule out intracranial abnormality or bleeding. Regarding hypernatremia. Will place patient on half-normal saline at 100 ML per hour for gentle hydration. Will resume home antihypertensive medications including hydralazine 10 milligrams 3 times a day, isosorbide 10 milligrams 3 times a day. Monitor blood counts. Acute thrombocytopenia- PLT on admission 82. Chronic pancytopenia related to multiple myeloma Consult speech therapy to evaluate swallow given weakness and encephalopathy Consider PT/OT screen once more medially stable given weakness and multiple falls. Again, patient is a do not resuscitate and this orders written Recheck CBC and BMP tomorrow morning to follow blood counts, renal function and electrolytes Discuss with case management. Patient does meet criteria to change to inpatient status given. Acute encephalopathy, accompanied with chronic kidney disease and uncontrolled hypertension. Will change status to inpatient. 08/18/17 Isordil TID changed to imdur qd (for better compliance) Would like to see if we could get him off hydralazine Check orthostatic BP's given the multiple falls 08/19/17 As not taking po, will start IVF's - 1/2NS at 75 mls/hr. Coreg added 08/17/17. BP's are better, but not consistently to goal. Continue to monitor. 08/20/[address] Christie. Reviewed status and lab. Recommends pamidronate 90mg for hypercalcemia - pharm will have to order in, anticipate giving tomorrow. Recommends raspuricase for elevated uric acid - with give 7.5mg IV daily for 3 days Agrees with Solu-Cortef pulse dose - can continues for 4 days, does not need taper. Serum free light chain immunoassay for evaluation of multiple myeloma. Dr Christie's input greatly appreciated. Sodium still with elevation at 147 - will increase 1/2NS to 125cc/hr and monitor. Creatinine stable at 2.7. With above treatments, hope to see improvement of his encephalopathy. Patient more awake this morning and able to take some intake. 08/21/17 Mentation not improving-not interacting verbally and no able to take oral. Sodium did decrease to 145. Creatinine with slight decrease to 2.4. Uric acid with significant decrease post raspuricase yesterday. Will hold on remaining doses for not. Pamidronate given today for hypercalcemia. Change IVF to 1/2NS with 20 KCL as potassium with decrease to 3.4. Persistent encephalopathy worrisome. Hope with treatments will improve, but with decline noted I'm not optimistic. Discussed with dejan. Continue lab monitoring. 08/22/17 Sodium normalized to 144. Calcium decrease to 9.7. Potassium 3.6. Uric acid undetectable. Mentation with overall little improvement - verbalizes some, but still encephalopathic. Will try B12 injections to see if this helps. Continue Solu-Cortef. Continue IVF for support. Discussed case with patient's son - lack of improvement worrisome. Potentially need Hospice if not seeing improvement.
[2017-08-22] MEDS ORDERED: INFLUENZA VAC High Dose 2017-18 (Fluzone HD*) (>=65yo) 0.5ml IM ONE (11:35)
[2017-08-22] MEDS: CYANOCOBALAMIN (B-12) 1,000mcg/ml INJECTION IM SCH (11:58)
[2017-08-22] MEDS: SERTRALINE 25 MG TABLET PO SCH (21:17)
[2017-08-23] MEDS: HYDRALAZINE 20 MG/ML INJECTION IVP PRN ×2 (00:23→21:28)
[2017-08-23] MEDS: 1/2 NS with KCL 20mEq 1,000 ML IV SCH ×2 (01:19→09:37)
[2017-08-23] MEDS: HYDROCORTISONE SOD SUCC 100mg/2ml INJECTION IVP SCH ×3 (01:20→16:53)
[2017-08-23] MEDS: HALOPERIDOL 5 MG/ML INJECTION IVP PRN ×2 (03:11→15:38)
[2017-08-23] MEDS: ISOSORBIDE MONONITRATE ER 60 MG TABLET PO SCH ×2 (06:14→07:10)
[2017-08-23] MEDS: OMEPRAZOLE 20 MG CAPSULE PO SCH ×2 (06:14→07:10)
[2017-08-23] MEDS: CALCITRIOL 0.25 MCG CAPSULE PO SCH (08:44)
[2017-08-23] MEDS: HYDRALAZINE 10 MG TABLET PO SCH ×4 (08:44→21:34)
[2017-08-23] MEDS: CYANOCOBALAMIN (B-12) 1,000mcg/ml INJECTION IM SCH (08:45)
[2017-08-23] MEDS: CARVEDILOL 3.125 MG TABLET PO SCH ×2 (08:45→16:53)
[2017-08-23] MEDS: DOCUSATE SODIUM 100 MG CAPSULE PO SCH ×2 (08:48→20:27)
--- NOTE | 2017-08-23 12:59 | Progress Note ---
- Date 08/23/17 Subjective: F/U: Acute encephalopathy, Hypernatremia, Multiple Myeloma Sitting up in chair this afternoon. Keeps eyes closed for the most part. Attempt to converse with fiancee and dentist/owner-but very limited. Not taking in as much lunch today. Did have very restless night-not able to sleeping, restless, grabbing at nurses. Haldol given. Objective Vital signs: Temperature 97.8 F 08/23/17 07:54 Pulse Rate 70 08/23/17 07:54 Respiratory Rate 18 08/23/17 07:54 Blood Pressure 182/96 H 08/23/17 07:54 Pulse Oximetry 100 08/23/17 07:54 Height/Weight/BMI: Weight 70.6 kg - Constitutional Present: well nourished, well developed, somnolent - Routine HEENT Exam Head: Present: normocephalic, atraumatic ENT: Present: mucous membranes moist - Routine Respiratory Exam Present: decreased breath sounds. Absent: respiratory distress, rhonchi, wheezes, crackles - Routine Cardiovascular Exam Present: RRR, no murmur - Routine Abdominal Exam Present: soft, normoactive bowel sounds, non distended, non tender - Routine Extremities Exam Present: no edema. Absent: cyanosis, clubbing - Routine Musculoskeletal Exam Musculoskeletal: Present: no clubbing or cyanosis - Routine Skin Exam Present: dry, warm - Routine Neurological Exam Present: altered mental status - Routine Psychiatric Exam Comments: Somnolent. Results - Labs CBC & Chem 7: 08/23/17 04:45 08/23/17 04:45 Assessment and Plan (1) Acute encephalopathy Current visit: Yes Status: Acute (2) Hypernatremia Current visit: Yes Status: Acute Assessment and Plan: Assessment Acute encephalopathy Dementia Multiple myeloma (Sees Dr. Christie) Hypernatremia, POA (He does run chronically high at least since Sep 2016) Hypercalcemia (POA) Elevated uric acid Uncontrolled hypertension Multiple falls -Unclear etiology, weakness? Pancytopenia-chronic Chronic kidney disease stage 4 (Sees Dr. Mcnamara) Cardiomyopathy -EF 40% in Sep 2016 Plan Sodium 142. Calcium 9.0. Potassium 3.6. Creatinine 1.9. Vitamin B12 low normal at 274. Variable mentation, not seeing sustained improvement. Increased restlessness and agitation last night with holding risperidone-Haldol given. Will restart risperidone at 0.25mg (home dose 0.5mg). Continue IM Vit B12 as level low normal. Day #2. Decrease IVF to 100cc/hr - 1/2NS with 20KCl Continue Solu-Cortef - today would be 4th day. Short course recommended by [facility], no taper needed. Discussed with dejan about minimal gains - likely need to consider hospice care if no improvements made. Monitor lab. Case discussed with dejan. Time spent with patient care 25 minutes. DVT Prophylaxis: SCD's Resuscitation Status: Do Not Resuscitate - Time spent with patient Time with patient PN: 25 minutes Hospital Course Summary Disclaimer: The visit summary below is not to be considered part of the above Progress Note. Hospital Course: Acute encephalopathy Dementia Hypernatremia, POA (He does run chronically high at least since Sep 2016) Uncontrolled hypertension Multiple falls -Unclear etiology, weakness? Pancytopenia-chronic Multiple myeloma (Sees Dr. Christie) Chronic kidney disease stage 4 (Sees Dr. Mcnamara) Cardiomyopathy -EF 40% in Sep 2016 08/17/17-hospital admission Initially admit outpatient observation under the care of Dr Wallace for cephalopathy, multiple falls and hypernatremia. Obtain a CT scan of the head. Given multiple unwitnessed falls, accompanied with an acute encephalopathy and uncontrolled hypertension to rule out intracranial abnormality or bleeding. Regarding hypernatremia. Will place patient on half-normal saline at 100 ML per hour for gentle hydration. Will resume home antihypertensive medications including hydralazine 10 milligrams 3 times a day, isosorbide 10 milligrams 3 times a day. Monitor blood counts. Acute thrombocytopenia- PLT on admission 82. Chronic pancytopenia related to multiple myeloma Consult speech therapy to evaluate swallow given weakness and encephalopathy Consider PT/OT screen once more medially stable given weakness and multiple falls. Again, patient is a do not resuscitate and this orders written Recheck CBC and BMP tomorrow morning to follow blood counts, renal function and electrolytes Discuss with case management. Patient does meet criteria to change to inpatient status given. Acute encephalopathy, accompanied with chronic kidney disease and uncontrolled hypertension. Will change status to inpatient. 08/18/17 Isordil TID changed to imdur qd (for better compliance) Would like to see if we could get him off hydralazine Check orthostatic BP's given the multiple falls 08/19/17 As not taking po, will start IVF's - 1/2NS at 75 mls/hr. Coreg added 08/17/17. BP's are better, but not consistently to goal. Continue to monitor. 08/20/[address] Christie. Reviewed status and lab. Recommends pamidronate 90mg for hypercalcemia - pharm will have to order in, anticipate giving tomorrow. Recommends raspuricase for elevated uric acid - with give 7.5mg IV daily for 3 days Agrees with Solu-Cortef pulse dose - can continues for 4 days, does not need taper. Serum free light chain immunoassay for evaluation of multiple myeloma. Dr Christie's input greatly appreciated. Sodium still with elevation at 147 - will increase 1/2NS to 125cc/hr and monitor. Creatinine stable at 2.7. With above treatments, hope to see improvement of his encephalopathy. Patient more awake this morning and able to take some intake. 08/21/17 Mentation not improving-not interacting verbally and no able to take oral. Sodium did decrease to 145. Creatinine with slight decrease to 2.4. Uric acid with significant decrease post raspuricase yesterday. Will hold on remaining doses for not. Pamidronate given today for hypercalcemia. Change IVF to 1/2NS with 20 KCL as potassium with decrease to 3.4. Persistent encephalopathy worrisome. Hope with treatments will improve, but with decline noted I'm not optimistic. Discussed with dejan. Continue lab monitoring. 08/22/17 Sodium normalized to 144. Calcium decrease to 9.7. Potassium 3.6. Uric acid undetectable. Mentation with overall little improvement - verbalizes some, but still encephalopathic. Will try B12 injections to see if this helps. Check Vit B12 level. Will try holding risperidone at night to see if stopping this medication helps improve his encephalopathy. Continue Solu-Cortef. Continue IVF for support. Discussed case with patient's son - lack of improvement worrisome. Potentially need Hospice if not seeing improvement. 08/23/17 Sodium 142. Calcium 9.0. Potassium 3.6. Creatinine 1.9. Vitamin B12 low normal at 274. Variable mentation, not seeing sustained improvement. Increased restlessness and agitation last night with holding risperidone-Haldol given. Will restart risperidone at 0.25mg (home dose 0.5mg). Continue IM Vit B12 as level low normal. Day #2. Decrease IVF to 100cc/hr - 1/2NS with 20KCl Continue Solu-Cortef - today would be 4th day. Short course recommended by [facility], no taper needed. Discussed with zamzame about minimal gains - likely need to consider hospice care if no improvements made.
[2017-08-23] MEDS ORDERED: 1/2 NS with KCL 20mEq 1,000 ML IV SCH (13:00)
[2017-08-23] MEDS ORDERED: HALOPERIDOL 5 MG/ML INJECTION IVP PRN ×2 (18:55→22:50)
[2017-08-23] MEDS: ACETAMINOPHEN 325 MG TABLET PO PRN (20:18)
[2017-08-23] MEDS: SERTRALINE 25 MG TABLET PO SCH ×2 (20:18→21:34)
[2017-08-24] MEDS: HYDROCORTISONE SOD SUCC 100mg/2ml INJECTION IVP SCH ×3 (01:11→18:56)
[2017-08-24] MEDS: SALINE FLUSH 10ml SYRINGE IV PRN ×2 (06:49→06:50)
[2017-08-24] MEDS: 1/2 NS with KCL 20mEq 1,000 ML IV SCH ×4 (06:52→15:52)
[2017-08-24] MEDS: ISOSORBIDE MONONITRATE ER 60 MG TABLET PO SCH (10:29)
[2017-08-24] MEDS: HYDRALAZINE 10 MG TABLET PO SCH ×3 (10:30→21:14)
[2017-08-24] MEDS: OMEPRAZOLE 20 MG CAPSULE PO SCH (10:30)
[2017-08-24] MEDS: CARVEDILOL 3.125 MG TABLET PO SCH ×2 (10:30→18:57)
[2017-08-24] MEDS: CALCITRIOL 0.25 MCG CAPSULE PO SCH (10:39)
[2017-08-24] MEDS: DOCUSATE SODIUM 100 MG CAPSULE PO SCH ×2 (10:39→21:16)
[2017-08-24] MEDS ORDERED: HALOPERIDOL 5 MG/ML INJECTION IVP PRN (10:57)
[2017-08-24] MEDS: CYANOCOBALAMIN (B-12) 1,000mcg/ml INJECTION IM SCH (10:59)
--- NOTE | 2017-08-24 11:01 | Progress Note ---
- Date 08/24/17 Subjective: F/U: Acute encephalopathy, Hypernatremia, Multiple Myeloma Somnolent this am. Had restless night-agitated. Haldol 2mg given IV. Yesterday evening was waking up some-took in more food. Could verbalize some. Not conversing or waking now-very somnolent. Objective Vital signs: Temperature 97.1 F 08/24/17 07:33 Pulse Rate 72 08/24/17 07:33 Respiratory Rate 18 08/24/17 07:33 Blood Pressure 148/95 H 08/24/17 07:33 Pulse Oximetry 97 08/24/17 07:33 Height/Weight/BMI: Weight 71.2 kg - Constitutional Present: well nourished, well developed, average body habitus, somnolent - Routine HEENT Exam Head: Present: normocephalic, atraumatic ENT: Present: mucous membranes moist - Routine Respiratory Exam Present: decreased breath sounds. Absent: rales, respiratory distress, rhonchi , wheezes, crackles - Routine Cardiovascular Exam Present: RRR, no murmur - Routine Abdominal Exam Present: soft, non distended, non tender. Absent: normoactive bowel sounds ( Decreased ) - Routine Extremities Exam Present: no edema, pulses intact. Absent: cyanosis, clubbing - Routine Skin Exam Present: dry, warm - Routine Neurological Exam Somnolent - Routine Psychiatric Exam Comments: Somnolent Results - Labs CBC & Chem 7: 08/24/17 03:53 08/24/17 03:53 Assessment and Plan (1) Acute encephalopathy Current visit: Yes Status: Acute (2) Hypernatremia Current visit: Yes Status: Acute Assessment and Plan: Assessment Acute encephalopathy Dementia Multiple myeloma (Sees Dr. Christie) Hypernatremia, POA (He does run chronically high at least since Sep 2016) Hypercalcemia (POA) Elevated uric acid Uncontrolled hypertension Multiple falls -Unclear etiology, weakness? Pancytopenia-chronic Chronic kidney disease stage 4 (Sees Dr. Mcnamara) Cardiomyopathy -EF 40% in Sep 2016 Plan Sodium 142. Calcium 8.6. Potassium 3.5. Creatinine 2.0. Uric acid 1.3. Slight increased mentation yesterday evening. Unfortunately given Haldol and very somnolent this am. With use of Haldol at night for restlessness, difficult to determine if encephalopathy clearing. Will return risperidone to 0.5mg home dose - Avoid high doses of Haldol Attempt potassium 10 mEq and MagOx 400mg today. Continue Solu-Cortef - today would be day. Add Lovenox for DVT prevention as not wearing SCDs. Monitor lab. Case discussed with dejan. Time spent with patient care 25 minutes. Hospital Course Summary Disclaimer: The visit summary below is not to be considered part of the above Progress Note. Hospital Course: Acute encephalopathy Dementia Hypernatremia, POA (He does run chronically high at least since Sep 2016) Uncontrolled hypertension Multiple falls -Unclear etiology, weakness? Pancytopenia-chronic Multiple myeloma (Sees Dr. Christie) Chronic kidney disease stage 4 (Sees Dr. Mcnamara) Cardiomyopathy -EF 40% in Sep 2016 08/17/17-hospital admission Initially admit outpatient observation under the care of Dr Wallace for cephalopathy, multiple falls and hypernatremia. Obtain a CT scan of the head. Given multiple unwitnessed falls, accompanied with an acute encephalopathy and uncontrolled hypertension to rule out intracranial abnormality or bleeding. Regarding hypernatremia. Will place patient on half-normal saline at 100 ML per hour for gentle hydration. Will resume home antihypertensive medications including hydralazine 10 milligrams 3 times a day, isosorbide 10 milligrams 3 times a day. Monitor blood counts. Acute thrombocytopenia- PLT on admission 82. Chronic pancytopenia related to multiple myeloma Consult speech therapy to evaluate swallow given weakness and encephalopathy Consider PT/OT screen once more medially stable given weakness and multiple falls. Again, patient is a do not resuscitate and this orders written Recheck CBC and BMP tomorrow morning to follow blood counts, renal function and electrolytes Discuss with case management. Patient does meet criteria to change to inpatient status given. Acute encephalopathy, accompanied with chronic kidney disease and uncontrolled hypertension. Will change status to inpatient. 08/18/17 Isordil TID changed to imdur qd (for better compliance) Would like to see if we could get him off hydralazine Check orthostatic BP's given the multiple falls 08/19/17 As not taking po, will start IVF's - 1/2NS at 75 mls/hr. Coreg added 08/17/17. BP's are better, but not consistently to goal. Continue to monitor. 08/20/[address] Christie. Reviewed status and lab. Recommends pamidronate 90mg for hypercalcemia - pharm will have to order in, anticipate giving tomorrow. Recommends raspuricase for elevated uric acid - with give 7.5mg IV daily for 3 days Agrees with Solu-Cortef pulse dose - can continues for 4 days, does not need taper. Serum free light chain immunoassay for evaluation of multiple myeloma. Dr Christie's input greatly appreciated. Sodium still with elevation at 147 - will increase 1/2NS to 125cc/hr and monitor. Creatinine stable at 2.7. With above treatments, hope to see improvement of his encephalopathy. Patient more awake this morning and able to take some intake. 08/21/17 Mentation not improving-not interacting verbally and no able to take oral. Sodium did decrease to 145. Creatinine with slight decrease to 2.4. Uric acid with significant decrease post raspuricase yesterday. Will hold on remaining doses for not. Pamidronate given today for hypercalcemia. Change IVF to 1/2NS with 20 KCL as potassium with decrease to 3.4. Persistent encephalopathy worrisome. Hope with treatments will improve, but with decline noted I'm not optimistic. Discussed with dejan. Continue lab monitoring. 08/22/17 Sodium normalized to 144. Calcium decrease to 9.7. Potassium 3.6. Uric acid undetectable. Mentation with overall little improvement - verbalizes some, but still encephalopathic. Will try B12 injections to see if this helps. Check Vit B12 level. Will try holding risperidone at night to see if stopping this medication helps improve his encephalopathy. Continue Solu-Cortef. Continue IVF for support. Discussed case with patient's son - lack of improvement worrisome. Potentially need Hospice if not seeing improvement. 08/23/17 Sodium 142. Calcium 9.0. Potassium 3.6. Creatinine 1.9. Vitamin B12 low normal at 274. Variable mentation, not seeing sustained improvement. Increased restlessness and agitation last night with holding risperidone-Haldol given. Will restart risperidone at 0.25mg (home dose 0.5mg). Continue IM Vit B12 as level low normal. Day #2. Decrease IVF to 100cc/hr - 1/2NS with 20KCl Continue Solu-Cortef - today would be 4th day. Short course recommended by [facility], no taper needed. Discussed with zamzame about minimal gains - likely need to consider hospice care if no improvements made. 08/24/17 Sodium 142. Calcium 8.6. Potassium 3.5. Creatinine 2.0. Uric acid 1.3. Slight increased mentation yesterday evening. Unfortunately given Haldol and very somnolent this am. With use of Haldol at night for restlessness, difficult to determine if encephalopathy clearing. Will return risperidone to 0.5mg home dose - Avoid high doses of Haldol Attempt potassium 10 mEq and MagOx 400mg today. Continue Solu-Cortef - today would be 5th day. Add Lovenox for DVT prevention as not wearing SCDs.
[2017-08-24] MEDS ORDERED: MAGNESIUM OXIDE 400 MG TABLET PO ONE (12:30)
[2017-08-24] MEDS: ENOXAPARIN 40 MG/0.4 ML INJECTION SQ SCH (18:58)
[2017-08-24] MEDS: RisperiDONE 0.5 MG TABLET PO SCH (21:13)
[2017-08-24] MEDS: SERTRALINE 25 MG TABLET PO SCH (21:13)
[2017-08-24] MEDS: ACETAMINOPHEN 325 MG TABLET PO PRN (22:23)
[2017-08-25] MEDS: HYDROCORTISONE SOD SUCC 100mg/2ml INJECTION IVP SCH ×3 (01:32→17:59)
[2017-08-25] MEDS: 1/2 NS with KCL 20mEq 1,000 ML IV SCH ×3 (02:01→23:33)
[2017-08-25] MEDS: OMEPRAZOLE 20 MG CAPSULE PO SCH (06:14)
[2017-08-25] MEDS: ISOSORBIDE MONONITRATE ER 60 MG TABLET PO SCH (06:15)
[2017-08-25] MEDS: CARVEDILOL 3.125 MG TABLET PO SCH ×2 (08:58→18:00)
[2017-08-25] MEDS: CALCITRIOL 0.25 MCG CAPSULE PO SCH (08:58)
[2017-08-25] MEDS: ENOXAPARIN 40 MG/0.4 ML INJECTION SQ SCH (08:58)
[2017-08-25] MEDS: DOCUSATE SODIUM 100 MG CAPSULE PO SCH ×2 (08:58→20:23)
[2017-08-25] MEDS: HYDRALAZINE 10 MG TABLET PO SCH ×3 (08:58→20:23)
[2017-08-25] MEDS: CYANOCOBALAMIN (B-12) 1,000mcg/ml INJECTION IM SCH (08:59)
--- NOTE | 2017-08-25 12:35 | Progress Note ---
- Date 08/25/17 Subjective: F/U: Acute encephalopathy, Hypernatremia, Multiple Myeloma More awake this morning. Will open eyes. Communicates more. Still with confusion , but at least able to get words out. Reports dry mouth. ROS still very limited. Received low dose lorazepam last night due to restlessness and agitation, but no Haldol. Taking more food in orally. Objective Vital signs: Temperature 97.0 F 08/25/17 08:00 Pulse Rate 59 L 08/25/17 08:00 Respiratory Rate 16 08/25/17 08:00 Blood Pressure 154/84 H 08/25/17 08:00 Pulse Oximetry 97 08/25/17 08:00 Height/Weight/BMI: Weight 60.5 kg - Constitutional Present: well nourished, well developed, average body habitus - Routine HEENT Exam Head: Present: normocephalic, atraumatic Eye: Present: EOMI, PERRL ENT: Present: mucous membranes moist - Routine Respiratory Exam Present: decreased breath sounds. Absent: rales, respiratory distress, rhonchi , wheezes, crackles - Routine Cardiovascular Exam Present: RRR, no murmur - Routine Abdominal Exam Present: soft, non distended, non tender. Absent: normoactive bowel sounds - Routine Extremities Exam Present: no edema, pulses intact. Absent: cyanosis, clubbing - Routine Skin Exam Present: dry, warm - Routine Neurological Exam Present: altered mental status, moving all extremities, vision grossly intact, hearing grossly intact - Routine Psychiatric Exam Comments: Communicates with short phrases. Thought process still clouded. Results - Labs CBC & Chem 7: 08/25/17 04:05 08/25/17 04:05 Assessment and Plan (1) Acute encephalopathy Current visit: Yes Status: Acute (2) Hypernatremia Current visit: Yes Status: Acute Assessment and Plan: Assessment Acute encephalopathy Dementia Multiple myeloma (Sees Dr. Christie) Hypernatremia (POA) (He does run chronically high at least since Sep 2016) Hypercalcemia (POA) Elevated uric acid Uncontrolled hypertension Multiple falls -Unclear etiology, weakness? Pancytopenia-chronic Chronic kidney disease stage 4 (Sees Dr. Mcnamara) Cardiomyopathy -EF 40% in Sep 2016 Plan Sodium 145. Calcium 8.6. Potassium 3.7. Creatinine 1.9. Uric acid 2.0. Increase in alertness this morning. Able to talk more and keep eyes open longer. Continue Solu-Cortef - today would be 6th day. Continue 1/2NS with potassium to maintain hydration. Platelets stable with Lovenox. Improving mentation encouraging. Hope to see continued gains. Possible be able to undergo skilled at discharge. Still have concern for need for hospice care if gains are not sustainable. Case discussed with dejan and son. Time spent with patient care 35 minutes. DVT Prophylaxis: Lovenox Resuscitation Status: Do Not Resuscitate - Time spent with patient Time with patient PN: 35 minutes Hospital Course Summary Disclaimer: The visit summary below is not to be considered part of the above Progress Note. Hospital Course: Acute encephalopathy Dementia Hypernatremia, POA (He does run chronically high at least since Sep 2016) Uncontrolled hypertension Multiple falls -Unclear etiology, weakness? Pancytopenia-chronic Multiple myeloma (Sees Dr. Christie) Chronic kidney disease stage 4 (Sees Dr. Mcnamara) Cardiomyopathy -EF 40% in Sep 2016 08/17/17-hospital admission Initially admit outpatient observation under the care of Dr Wallace for cephalopathy, multiple falls and hypernatremia. Obtain a CT scan of the head. Given multiple unwitnessed falls, accompanied with an acute encephalopathy and uncontrolled hypertension to rule out intracranial abnormality or bleeding. Regarding hypernatremia. Will place patient on half-normal saline at 100 ML per hour for gentle hydration. Will resume home antihypertensive medications including hydralazine 10 milligrams 3 times a day, isosorbide 10 milligrams 3 times a day. Monitor blood counts. Acute thrombocytopenia- PLT on admission 82. Chronic pancytopenia related to multiple myeloma Consult speech therapy to evaluate swallow given weakness and encephalopathy Consider PT/OT screen once more medially stable given weakness and multiple falls. Again, patient is a do not resuscitate and this orders written Recheck CBC and BMP tomorrow morning to follow blood counts, renal function and electrolytes Discuss with case management. Patient does meet criteria to change to inpatient status given. Acute encephalopathy, accompanied with chronic kidney disease and uncontrolled hypertension. Will change status to inpatient. 08/18/17 Isordil TID changed to imdur qd (for better compliance) Would like to see if we could get him off hydralazine Check orthostatic BP's given the multiple falls 08/19/17 As not taking po, will start IVF's - 1/2NS at 75 mls/hr. Coreg added 08/17/17. BP's are better, but not consistently to goal. Continue to monitor. 08/20/[address] Christie. Reviewed status and lab. Recommends pamidronate 90mg for hypercalcemia - pharm will have to order in, anticipate giving tomorrow. Recommends raspuricase for elevated uric acid - with give 7.5mg IV daily for 3 days Agrees with Solu-Cortef pulse dose - can continues for 4 days, does not need taper. Serum free light chain immunoassay for evaluation of multiple myeloma. Dr Christie's input greatly appreciated. Sodium still with elevation at 147 - will increase 1/2NS to 125cc/hr and monitor. Creatinine stable at 2.7. With above treatments, hope to see improvement of his encephalopathy. Patient more awake this morning and able to take some intake. 08/21/17 Mentation not improving-not interacting verbally and no able to take oral. Sodium did decrease to 145. Creatinine with slight decrease to 2.4. Uric acid with significant decrease post raspuricase yesterday. Will hold on remaining doses for not. Pamidronate given today for hypercalcemia. Change IVF to 1/2NS with 20 KCL as potassium with decrease to 3.4. Persistent encephalopathy worrisome. Hope with treatments will improve, but with decline noted I'm not optimistic. Discussed with dejan. Continue lab monitoring. 08/22/17 Sodium normalized to 144. Calcium decrease to 9.7. Potassium 3.6. Uric acid undetectable. Mentation with overall little improvement - verbalizes some, but still encephalopathic. Will try B12 injections to see if this helps. Check Vit B12 level. Will try holding risperidone at night to see if stopping this medication helps improve his encephalopathy. Continue Solu-Cortef. Continue IVF for support. Discussed case with patient's son - lack of improvement worrisome. Potentially need Hospice if not seeing improvement. 08/23/17 Sodium 142. Calcium 9.0. Potassium 3.6. Creatinine 1.9. Vitamin B12 low normal at 274. Variable mentation, not seeing sustained improvement. Increased restlessness and agitation last night with holding risperidone-Haldol given. Will restart risperidone at 0.25mg (home dose 0.5mg). Continue IM Vit B12 as level low normal. Day #2. Decrease IVF to 100cc/hr - 1/2NS with 20KCl Continue Solu-Cortef - today would be 4th day. Short course recommended by [facility], no taper needed. Discussed with dejan about minimal gains - likely need to consider hospice care if no improvements made. 08/24/17 Sodium 142. Calcium 8.6. Potassium 3.5. Creatinine 2.0. Uric acid 1.3. Slight increased mentation yesterday evening. Unfortunately given Haldol and very somnolent this am. With use of Haldol at night for restlessness, difficult to determine if encephalopathy clearing. Will return risperidone to 0.5mg home dose - Avoid high doses of Haldol Attempt potassium 10 mEq and MagOx 400mg today. Continue Solu-Cortef - today would be 5th day. Add Lovenox for DVT prevention as not wearing SCDs. 08/25/17 Sodium 145. Calcium 8.6. Potassium 3.7. Creatinine 1.9. Uric acid 2.0. Increase in alertness this morning. Able to talk more and keep eyes open longer. Continue Solu-Cortef - today would be 6th day. Continue 1/2NS with potassium to maintain hydration. Platelets stable with Lovenox. Improving mentation encouraging. Hope to see continued gains. Possible be able to undergo skilled at discharge. Still have concern for need for hospice care if gains are not sustainable.
[2017-08-25] MEDS ORDERED: MAGNESIUM OXIDE 400 MG TABLET PO ONE (17:30)
[2017-08-25] MEDS: SERTRALINE 25 MG TABLET PO SCH (20:23)
[2017-08-25] MEDS: RisperiDONE 0.5 MG TABLET PO SCH (20:30)
[2017-08-25] MEDS: SALINE FLUSH 10ml SYRINGE IV PRN (20:32)
[2017-08-26] MEDS: HYDRALAZINE 20 MG/ML INJECTION IVP PRN ×2 (00:19→06:39)
[2017-08-26] MEDS ORDERED: HYDRALAZINE 20 MG/ML INJECTION IVP ONE (00:33)
[2017-08-26] MEDS: HYDROCORTISONE SOD SUCC 100mg/2ml INJECTION IVP SCH ×2 (00:43→08:23)
[2017-08-26] MEDS: OMEPRAZOLE 20 MG CAPSULE PO SCH (05:48)
[2017-08-26] MEDS: ISOSORBIDE MONONITRATE ER 60 MG TABLET PO SCH (05:48)
[2017-08-26] MEDS: CARVEDILOL 3.125 MG TABLET PO SCH ×3 (06:41→17:32)
[2017-08-26] MEDS: DOCUSATE SODIUM 100 MG CAPSULE PO SCH ×2 (08:23→21:36)
[2017-08-26] MEDS: HYDRALAZINE 10 MG TABLET PO SCH ×3 (08:23→21:36)
[2017-08-26] MEDS: CALCITRIOL 0.25 MCG CAPSULE PO SCH (08:23)
[2017-08-26] MEDS: ENOXAPARIN 40 MG/0.4 ML INJECTION SQ SCH (08:30)
[2017-08-26] MEDS: CYANOCOBALAMIN (B-12) 1,000mcg/ml INJECTION IM SCH (08:31)
[2017-08-26] MEDS: 1/2 NS with KCL 20mEq 1,000 ML IV SCH ×2 (10:21→22:35)
--- NOTE | 2017-08-26 13:25 | Progress Note ---
- Date 08/26/17 Subjective: The patient was seen in his room accompanied by his significant other, Ivonne. She was trying to get him to eat lunch but he has not been hungry. His nurse stated that he ate well for all 3 meals yesterday but did not eat breakfast today. His nurse also stated that he only slept about 3 hours last night. He received Ativan twice yesterday, the last dose was in the mid afternoon. He has not received any Haldol in 3 days. He continues to take Risperdal at night. Unfortunately, he continues to be encephalopathic. He is not able to answer any questions for me. He did initially open his eyes on command, but on questioning he could not answer any questions. When I tried to do an exam and look in his eyes he closed his eyes and would not reopen them later. Objective Vital signs: Temperature 95.5 F L 08/26/17 07:18 Pulse Rate 75 08/26/17 07:18 Respiratory Rate 16 08/26/17 07:18 Blood Pressure 154/81 H 08/26/17 07:18 Pulse Oximetry 97 08/26/17 07:18 Height/Weight/BMI: Weight 71.5 kg Comments: Blood pressure ranges from 150-200 systolic. Heart rate has remained normal. Temperature is 95.5. The patient remains on room air, With saturations in the 90s GEN-drowsy but arousable, continues to be very confused, no acute distress HEENT-unable to examine due to patient inability to comply NECK-unable to move the patient's neck a little bit [id number]. It's difficult to test for rigidity because of noncompliance CV-regular rate and rhythm CHEST-clear to auscultation bilaterally ABD-soft, nontender with positive bowel sounds -no Graff, 5 incontinent voids noted yesterday EXT-no edema NEURO-unable to obtain an accurate neurologic exam. The patient cannot follow any commands. His arms and legs are fairly rigid when trying to perform exam. DTRs at the knees are minimal. No obvious focal deficits appreciated SKIN-warm and dry and without rashes Results - Labs CBC & Chem 7: 08/26/17 04:04 08/26/17 04:04 Labs: Uric acid is 2.7, calcium today is 8.4 TSH previously was normal, B-12 previously was low normal at 274, LDH was normal at 586 Free [place] Light chain was elevated at 352 and [place]/lambda ratio was elevated Assessment and Plan (1) Acute encephalopathy Current visit: Yes Status: Acute (2) Hypernatremia Current visit: Yes Status: Acute Assessment and Plan: Assessment Acute encephalopathy since fall one day prior to admission Dementia progressing Multiple myeloma (Sees Dr. Christie, but had not seen since prior to his move to [place] and return to [place]) Hypernatremia (POA) -resolved (He does run chronically high at least since Sep 2016) Hypercalcemia (POA) -resolved post-pamidronate Elevated uric acid -resolved with Raspirucase Uncontrolled hypertension Multiple falls -Unclear etiology, weakness? Pancytopenia-chronic Chronic kidney disease stage 4 -creatinine currently 1.8 down from 3.4 on admission (Sees Dr. Mcnamara) Cardiomyopathy -EF 40% in Sep 2016 Plan Chart reviewed, labs reviewed, radiology reviewed. Sodium 144. Calcium 8.4. Potassium 3.7. Creatinine 1.8. Uric acid 2.7. Still significantly encephalopathic today. Cannot follow commands. A well yesterday, but not eating today. Discussed at length today with Dr. Christie, patient's oncologist. He recommended discontinuation of Solu-Cortef. He recommended starting allopurinol to control uric acid. He stated that the patient has advanced multiple myeloma and has undergone multiple treatments including bone marrow transplant. He stated that he would not recommend any further treatment if the patient's confusion does not improve. He stated he would consider palliative care if encephalopathy is not improving. Platelets stable with Lovenox for DVT prophylaxis. Minimize use of Ativan. Continue Resporal in the evenings. Consider neurology consult. Continue current antihypertensives and when necessary hydralazine. If blood pressure does not improve off of Solu-Cortef, may need to increase scheduled antihypertensives. Repeat CBC and renal panel tomorrow. Start IV thiamine Time spent with patient care over 35 minutes. Hospital Course Summary Disclaimer: The visit summary below is not to be considered part of the above Progress Note. Hospital Course: Acute encephalopathy Dementia Hypernatremia, POA (He does run chronically high at least since Sep 2016) Uncontrolled hypertension Multiple falls -Unclear etiology, weakness? Pancytopenia-chronic Multiple myeloma (Sees Dr. Christie) Chronic kidney disease stage 4 (Sees Dr. Mcnamara) Cardiomyopathy -EF 40% in Sep 2016 08/17/17-hospital admission Initially admit outpatient observation under the care of Dr Wallace for cephalopathy, multiple falls and hypernatremia. Obtain a CT scan of the head. Given multiple unwitnessed falls, accompanied with an acute encephalopathy and uncontrolled hypertension to rule out intracranial abnormality or bleeding. Regarding hypernatremia. Will place patient on half-normal saline at 100 ML per hour for gentle hydration. Will resume home antihypertensive medications including hydralazine 10 milligrams 3 times a day, isosorbide 10 milligrams 3 times a day. Monitor blood counts. Acute thrombocytopenia- PLT on admission 82. Chronic pancytopenia related to multiple myeloma Consult speech therapy to evaluate swallow given weakness and encephalopathy Consider PT/OT screen once more medially stable given weakness and multiple falls. Again, patient is a do not resuscitate and this orders written Recheck CBC and BMP tomorrow morning to follow blood counts, renal function and electrolytes Discuss with case management. Patient does meet criteria to change to inpatient status given. Acute encephalopathy, accompanied with chronic kidney disease and uncontrolled hypertension. Will change status to inpatient. 08/18/17 Isordil TID changed to imdur qd (for better compliance) Would like to see if we could get him off hydralazine Check orthostatic BP's given the multiple falls 08/19/17 As not taking po, will start IVF's - 1/2NS at 75 mls/hr. Coreg added 08/17/17. BP's are better, but not consistently to goal. Continue to monitor. 08/20/[address] Christie. Reviewed status and lab. Recommends pamidronate 90mg for hypercalcemia - pharm will have to order in, anticipate giving tomorrow. Recommends raspuricase for elevated uric acid - with give 7.5mg IV daily for 3 days Agrees with Solu-Cortef pulse dose - can continues for 4 days, does not need taper. Serum free light chain immunoassay for evaluation of multiple myeloma. Dr Christie's input greatly appreciated. Sodium still with elevation at 147 - will increase 1/2NS to 125cc/hr and monitor. Creatinine stable at 2.7. With above treatments, hope to see improvement of his encephalopathy. Patient more awake this morning and able to take some intake. 08/21/17 Mentation not improving-not interacting verbally and no able to take oral. Sodium did decrease to 145. Creatinine with slight decrease to 2.4. Uric acid with significant decrease post raspuricase yesterday. Will hold on remaining doses for not. Pamidronate given today for hypercalcemia. Change IVF to 1/2NS with 20 KCL as potassium with decrease to 3.4. Persistent encephalopathy worrisome. Hope with treatments will improve, but with decline noted I'm not optimistic. Discussed with dejan. Continue lab monitoring. 08/22/17 Sodium normalized to 144. Calcium decrease to 9.7. Potassium 3.6. Uric acid undetectable. Mentation with overall little improvement - verbalizes some, but still encephalopathic. Will try B12 injections to see if this helps. Check Vit B12 level. Will try holding risperidone at night to see if stopping this medication helps improve his encephalopathy. Continue Solu-Cortef. Continue IVF for support. Discussed case with patient's son - lack of improvement worrisome. Potentially need Hospice if not seeing improvement. 08/23/17 Sodium 142. Calcium 9.0. Potassium 3.6. Creatinine 1.9. Vitamin B12 low normal at 274. Variable mentation, not seeing sustained improvement. Increased restlessness and agitation last night with holding risperidone-Haldol given. Will restart risperidone at 0.25mg (home dose 0.5mg). Continue IM Vit B12 as level low normal. Day #2. Decrease IVF to 100cc/hr - 1/2NS with 20KCl Continue Solu-Cortef - today would be 4th day. Short course recommended by ONC, no taper needed. Discussed with dejan about minimal gains - likely need to consider hospice care if no improvements made. 08/24/17 Sodium 142. Calcium 8.6. Potassium 3.5. Creatinine 2.0. Uric acid 1.3. Slight increased mentation yesterday evening. Unfortunately given Haldol and very somnolent this am. With use of Haldol at night for restlessness, difficult to determine if encephalopathy clearing. Will return risperidone to 0.5mg home dose - Avoid high doses of Haldol Attempt potassium 10 mEq and MagOx 400mg today. Continue Solu-Cortef - today would be 5th day. Add Lovenox for DVT prevention as not wearing SCDs. 08/25/17 Sodium 145. Calcium 8.6. Potassium 3.7. Creatinine 1.9. Uric acid 2.0. Increase in alertness this morning. Able to talk more and keep eyes open longer. Continue Solu-Cortef - today would be 6th day. Continue 1/2NS with potassium to maintain hydration. Platelets stable with Lovenox. Improving mentation encouraging. Hope to see continued gains. Possible be able to undergo skilled at discharge. Still have concern for need for hospice care if gains are not sustainable.
[2017-08-26] MEDS: THIAMINE 200mg/2ml INJECTION IVP SCH (15:30)
[2017-08-26] MEDS: ALLOPURINOL 100 MG TABLET PO SCH (15:34)
--- NOTE | 2017-08-26 16:56 | Magnetic Resonance Report ---
Indication: encephalopathy, Multiple myeloma PROCEDURE: MR head/brain wo con: Encounter: Initial Comparisons: Head CT 08/17/2017, brain MRI 01/03/2017 Technique: Multiplanar, multisequence, MR imaging of the head without contrast was acquired. FINDINGS: Evaluation limited by motion artifact. No restricted diffusion is seen to suggest recent ischemic infarction. T2/FLAIR hyperintensities within the deep white matter, a nonspecific finding, however most commonly related to chronic small vessel ischemic disease. The normal benson-white matter differentiation is maintained. No intra-axial or extra-axial mass or hemorrhage seen. No mass effect or midline shift. No abnormal postcontrast enhancement. Symmetric prominence of the ventricles and cerebral sulci most consistent with age-related generalized cerebral volume loss. The ventricles are otherwise normal in shape and configuration without evidence of hydrocephalus. The basilar cisterns are patent. Normal flow void seen within the intracranial arterial and venous structures indicating patency. The paranasal sinuses and mastoid air cells are well-aerated. The orbits and globes appear normal. IMPRESSION: 1. No acute abnormalities of the brain identified by MRI. 2. Age-related generalized cerebral volume loss and chronic small vessel ischemic disease. .
[2017-08-26] MEDS: RisperiDONE 0.5 MG TABLET PO SCH (21:36)
[2017-08-26] MEDS: SERTRALINE 25 MG TABLET PO SCH (21:36)
[2017-08-26] MEDS ORDERED: FALL RISK - PHARMACY CONSULT XX ONE (21:54)
[2017-08-27] MEDS ORDERED: AMLODIPINE 5 MG TABLET PO SCH (00:15)
[2017-08-27] MEDS: ACETAMINOPHEN 325 MG TABLET PO PRN ×2 (00:17→10:19)
[2017-08-27] MEDS ORDERED: MORPHINE SULFATE 2mg INJECTION IVP ONE (01:46)
[2017-08-27] MEDS: ISOSORBIDE MONONITRATE ER 60 MG TABLET PO SCH ×2 (07:54→08:09)
[2017-08-27] MEDS: OMEPRAZOLE 20 MG CAPSULE PO SCH ×2 (07:54→08:03)
[2017-08-27] MEDS: DOCUSATE SODIUM 100 MG CAPSULE PO SCH ×2 (08:07→20:16)
[2017-08-27] MEDS: HYDRALAZINE 10 MG TABLET PO SCH ×3 (08:07→20:16)
[2017-08-27] MEDS: CARVEDILOL 3.125 MG TABLET PO SCH ×2 (08:07→18:12)
[2017-08-27] MEDS: CALCITRIOL 0.25 MCG CAPSULE PO SCH (08:07)
[2017-08-27] MEDS: THIAMINE 200mg/2ml INJECTION IVP SCH (08:08)
[2017-08-27] MEDS: CYANOCOBALAMIN (B-12) 1,000mcg/ml INJECTION IM SCH (08:08)
[2017-08-27] MEDS: ENOXAPARIN 40 MG/0.4 ML INJECTION SQ SCH (08:08)
[2017-08-27] MEDS: ALLOPURINOL 100 MG TABLET PO SCH (08:08)
[2017-08-27] MEDS: 1/2 NS with KCL 20mEq 1,000 ML IV SCH ×3 (09:20→20:01)
--- NOTE | 2017-08-27 15:09 | Progress Note ---
- Date 08/27/17 Subjective: The patient was seen in his room accompanied by his fiance Ivonne. She stated that after supper last night she had a coherent conversation with him and he seemed mentally to be back to his normal self. She stated they talked for about 30 minutes and then she went home. Per his night nurse, he became confused again around midnight. He continues to be very confused today. He ate a good supper last night. He has not wanted lunch today. The patient did receive Norvasc 5 mg times one last night for elevated blood pressure. He also received morphine for possible pain. Objective Vital signs: Temperature 97.5 F 08/27/17 07:52 Pulse Rate 61 08/27/17 07:52 Respiratory Rate 18 08/27/17 07:52 Blood Pressure 154/92 H 08/27/17 14:43 Pulse Oximetry 97 08/27/17 07:52 Height/Weight/BMI: Weight 72.4 kg Comments: GEN-the patient is seen sitting up in his recliner. He says hello when I tell him low. Otherwise he is not responsive HEENT-patient keeps his eyes closed and will not open them on command CV-regular rate and rhythm CHEST-clear to auscultation bilaterally ABD-soft, nontender with positive bowel sounds -no Graff EXT-no edema NEURO-difficult to assess as the patient is not able to follow any commands. He continues to be obtunded and encephalopathic SKIN-warm and dry and without rashes Results - Labs CBC & Chem 7: 08/27/17 04:07 08/27/17 04:07 - Impressions MRI brain yesterday without contrast shows no new findings. He has chronic small vessel disease and age-related cerebral volume loss. Assessment and Plan (1) Acute encephalopathy Current visit: Yes Status: Acute (2) Hypernatremia Current visit: Yes Status: Acute Assessment and Plan: Assessment Acute encephalopathy since fall one day prior to admission Dementia progressing Multiple myeloma (Sees Dr. Christie, but had not seen since prior to his move to [place] and return to [place]). Discussed with Dr. Christie on 08/26/2017 and he stated that as long as he continues to be encephalopathic, there is no other treatment he would recommend for multiple myeloma and he would recommend consideration for palliative care. Hypernatremia (POA) -resolved (He does run chronically high at least since Sep 2016) Hypercalcemia (POA) -resolved post-pamidronate Elevated uric acid -resolved with Raspirucase, allopurinol started 08/26/2017 Uncontrolled hypertension Multiple falls -Unclear etiology, weakness? Pancytopenia-chronic Chronic kidney disease stage 4 -creatinine currently 1.9 down from 3.4 on admission (Sees Dr. Mcnamara) Cardiomyopathy -EF 40% in Sep 2016 Plan The patient reportedly had an episode of lucidity last night but is obtunded and encephalopathic again today. Discussed with Dr. Banks who did come and evaluate the patient. He recommended EEG. EEG was done this afternoon and results are pending. We'll start Norvasc 5 mg daily for hypertension Continue IV fluids for poor by mouth intake discontinue Ativan Start scheduled Tylenol for possible pain Continue Risperdal Platelets stable with Lovenox for DVT prophylaxis. Repeat CBC and renal panel tomorrow. Discussed at length with Ivonne, patient's fianc. I also called and talked with Beto, patient's son and DPOA and updated him. I discussed with him Dr. Christie's recommendation. At this time, we will await results of EEG and see if the patient will start to improve. Time spent with patient care over 35 minutes. Hospital Course Summary Disclaimer: The visit summary below is not to be considered part of the above Progress Note. Hospital Course: Acute encephalopathy Dementia Hypernatremia, POA (He does run chronically high at least since Sep 2016) Uncontrolled hypertension Multiple falls -Unclear etiology, weakness? Pancytopenia-chronic Multiple myeloma (Sees Dr. Christie) Chronic kidney disease stage 4 (Sees Dr. Mcnamara) Cardiomyopathy -EF 40% in Sep 2016 08/17/17-hospital admission Initially admit outpatient observation under the care of Dr Wallace for cephalopathy, multiple falls and hypernatremia. Obtain a CT scan of the head. Given multiple unwitnessed falls, accompanied with an acute encephalopathy and uncontrolled hypertension to rule out intracranial abnormality or bleeding. Regarding hypernatremia. Will place patient on half-normal saline at 100 ML per hour for gentle hydration. Will resume home antihypertensive medications including hydralazine 10 milligrams 3 times a day, isosorbide 10 milligrams 3 times a day. Monitor blood counts. Acute thrombocytopenia- PLT on admission 82. Chronic pancytopenia related to multiple myeloma Consult speech therapy to evaluate swallow given weakness and encephalopathy Consider PT/OT screen once more medially stable given weakness and multiple falls. Again, patient is a do not resuscitate and this orders written Recheck CBC and BMP tomorrow morning to follow blood counts, renal function and electrolytes Discuss with case management. Patient does meet criteria to change to inpatient status given. Acute encephalopathy, accompanied with chronic kidney disease and uncontrolled hypertension. Will change status to inpatient. 08/18/17 Isordil TID changed to imdur qd (for better compliance) Would like to see if we could get him off hydralazine Check orthostatic BP's given the multiple falls 08/19/17 As not taking po, will start IVF's - 1/2NS at 75 mls/hr. Coreg added 08/17/17. BP's are better, but not consistently to goal. Continue to monitor. 08/20/[address] Christie. Reviewed status and lab. Recommends pamidronate 90mg for hypercalcemia - pharm will have to order in, anticipate giving tomorrow. Recommends raspuricase for elevated uric acid - with give 7.5mg IV daily for 3 days Agrees with Solu-Cortef pulse dose - can continues for 4 days, does not need taper. Serum free light chain immunoassay for evaluation of multiple myeloma. Dr Christie's input greatly appreciated. Sodium still with elevation at 147 - will increase 1/2NS to 125cc/hr and monitor. Creatinine stable at 2.7. With above treatments, hope to see improvement of his encephalopathy. Patient more awake this morning and able to take some intake. 08/21/17 Mentation not improving-not interacting verbally and no able to take oral. Sodium did decrease to 145. Creatinine with slight decrease to 2.4. Uric acid with significant decrease post raspuricase yesterday. Will hold on remaining doses for not. Pamidronate given today for hypercalcemia. Change IVF to 1/2NS with 20 KCL as potassium with decrease to 3.4. Persistent encephalopathy worrisome. Hope with treatments will improve, but with decline noted I'm not optimistic. Discussed with dejan. Continue lab monitoring. 08/22/17 Sodium normalized to 144. Calcium decrease to 9.7. Potassium 3.6. Uric acid undetectable. Mentation with overall little improvement - verbalizes some, but still encephalopathic. Will try B12 injections to see if this helps. Check Vit B12 level. Will try holding risperidone at night to see if stopping this medication helps improve his encephalopathy. Continue Solu-Cortef. Continue IVF for support. Discussed case with patient's son - lack of improvement worrisome. Potentially need Hospice if not seeing improvement. 08/23/17 Sodium 142. Calcium 9.0. Potassium 3.6. Creatinine 1.9. Vitamin B12 low normal at 274. Variable mentation, not seeing sustained improvement. Increased restlessness and agitation last night with holding risperidone-Haldol given. Will restart risperidone at 0.25mg (home dose 0.5mg). Continue IM Vit B12 as level low normal. Day #2. Decrease IVF to 100cc/hr - 1/2NS with 20KCl Continue Solu-Cortef - today would be 4th day. Short course recommended by ONC, no taper needed. Discussed with zamzame about minimal gains - likely need to consider hospice care if no improvements made. 08/24/17 Sodium 142. Calcium 8.6. Potassium 3.5. Creatinine 2.0. Uric acid 1.3. Slight increased mentation yesterday evening. Unfortunately given Haldol and very somnolent this am. With use of Haldol at night for restlessness, difficult to determine if encephalopathy clearing. Will return risperidone to 0.5mg home dose - Avoid high doses of Haldol Attempt potassium 10 mEq and MagOx 400mg today. Continue Solu-Cortef - today would be 5th day. Add Lovenox for DVT prevention as not wearing SCDs. 08/25/17 Sodium 145. Calcium 8.6. Potassium 3.7. Creatinine 1.9. Uric acid 2.0. Increase in alertness this morning. Able to talk more and keep eyes open longer. Continue Solu-Cortef - today would be 6th day. Continue 1/2NS with potassium to maintain hydration. Platelets stable with Lovenox. Improving mentation encouraging. Hope to see continued gains. Possible be able to undergo skilled at discharge. Still have concern for need for hospice care if gains are not sustainable. 08/26/2017 Plan Chart reviewed, labs reviewed, radiology reviewed. Sodium 144. Calcium 8.4. Potassium 3.7. Creatinine 1.8. Uric acid 2.7. Still significantly encephalopathic today. Cannot follow commands. A well yesterday, but not eating today. Discussed at length today with Dr. Christie, patient's oncologist. He recommended discontinuation of Solu-Cortef. He recommended starting allopurinol to control uric acid. He stated that the patient has advanced multiple myeloma and has undergone multiple treatments including bone marrow transplant. He stated that he would not recommend any further treatment if the patient's confusion does not improve. He stated he would consider palliative care if encephalopathy is not improving. Platelets stable with Lovenox for DVT prophylaxis. Minimize use of Ativan. Continue Resporal in the evenings. Consider neurology consult. Continue current antihypertensives and when necessary hydralazine. If blood pressure does not improve off of Solu-Cortef, may need to increase scheduled antihypertensives. Repeat CBC and renal panel tomorrow. Start IV thiamine Time spent with patient care over 35 minutes.
--- NOTE | 2017-08-27 16:09 | Consultation ---
DATE OF CONSULTATION 08/27/[address] Strickland CHIEF COMPLAINT Confusion. HISTORY OF PRESENT ILLNESS Patient is an 82-year-old male with history of multiple myeloma end-stage disease. The patient has had bone marrow transplant and several courses of chemotherapy. He has been very lethargic and obtunded for the past few days. The patient is being treated for chronic renal insufficiency. This got worse during admission and it has been improving since. He also has difficult-to- control high blood pressure associated with agitation and combativeness. The patient had a CT and MRI of the brain that showed no acute abnormalities and no signs of meningeal enhancement or abnormalities like that. The patient is taking Lovenox for DVT prophylaxis. He had no other signs of sepsis or infection. On physical examination the patient was obtunded. His eyes were semi-open. The patient was moving all extremities to stimulation. He has had resistance to eye -opening and limb movement in all extremities. Deep tendon reflexes were 2/4. Plantar reflexes were in flexion bilaterally. Sensory examination was symmetrical for pinprick sensation. Pupils were around 2 mm each and reactive to light. The patient was very sedated during the time of exam and he was not speaking at all. ASSESSMENT Metabolic encephalopathy associated with multiple myeloma and treatment for multiple myeloma. This has been exacerbated by chronic renal insufficiency and morbid hypertension. There are no signs of infection or meningeal irritation on exam or MRI of the brain. PLAN 1. Continue medical management of the patient's symptoms. Avoid sedation. Optimize treatment for hypertension and chronic renal insufficiency. Provide good fluid intake. 2. EEG to assess risk for encephalopathy and seizure. 3. Consider having a spinal tap if patient's condition deteriorates or if having worse stiffening of the body. 4. Follow up with Dr. Abreu's recommendation for multiple myeloma treatment and management of symptoms. [facility]
[2017-08-27] MEDS: ACETAMINOPHEN 325 MG TABLET PO SCH ×2 (16:16→20:15)
[2017-08-27] MEDS: AMLODIPINE 5 MG TABLET PO SCH (18:12)
[2017-08-27] MEDS: SERTRALINE 25 MG TABLET PO SCH (20:16)
[2017-08-27] MEDS: RisperiDONE 0.5 MG TABLET PO SCH (20:16)
[2017-08-27] MEDS ORDERED: ZIPRASIDONE 20 MG/ML IM ONE (22:42)
[2017-08-28] MEDS: 1/2 NS with KCL 20mEq 1,000 ML IV SCH ×3 (07:50→17:25)
[2017-08-28] MEDS: OMEPRAZOLE 20 MG CAPSULE PO SCH (07:50)
[2017-08-28] MEDS: ISOSORBIDE MONONITRATE ER 60 MG TABLET PO SCH (07:50)
[2017-08-28] MEDS: ACETAMINOPHEN 325 MG TABLET PO SCH ×4 (11:27→20:31)
[2017-08-28] MEDS: DOCUSATE SODIUM 100 MG CAPSULE PO SCH ×2 (11:27→20:31)
[2017-08-28] MEDS: CALCITRIOL 0.25 MCG CAPSULE PO SCH (11:28)
[2017-08-28] MEDS: CARVEDILOL 3.125 MG TABLET PO SCH ×2 (11:28→17:58)
[2017-08-28] MEDS: ALLOPURINOL 100 MG TABLET PO SCH (11:28)
[2017-08-28] MEDS: HYDRALAZINE 10 MG TABLET PO SCH ×3 (11:29→20:53)
[2017-08-28] MEDS: THIAMINE 200mg/2ml INJECTION IVP SCH (11:29)
[2017-08-28] MEDS: ENOXAPARIN 40 MG/0.4 ML INJECTION SQ SCH (11:29)
[2017-08-28] MEDS: AMLODIPINE 5 MG TABLET PO SCH (11:31)
[2017-08-28] MEDS ORDERED: CYANOCOBALAMIN (B-12) 1,000mcg/ml INJECTION IM SCH (15:15)
[2017-08-28] MEDS ORDERED: RisperiDONE 0.5 MG TABLET PO PRN ×2 (15:37→22:53)
--- NOTE | 2017-08-28 15:41 | Progress Note ---
- Date 08/28/17 Subjective: The patient was seen this afternoon in his room. He was accompanied by his brother. His nurse stated that they caught him up to the chair this morning and he was able to take his pills and ate a few bites of breakfast but then refused to eat any further. Speech therapy also try to feed him and he only took a few bites. They put him back to bed. When I arrived he was sleeping. He aroused slightly to exam but would not answer questions or follow commands. Objective Vital signs: Temperature 97.7 F 08/28/17 08:12 Pulse Rate 72 08/28/17 08:12 Respiratory Rate 18 08/28/17 08:12 Blood Pressure 135/94 H 08/28/17 08:12 Pulse Oximetry 94 08/28/17 08:12 Height/Weight/BMI: Weight 70.3 kg Comments: GEN-obtunded, mildly arousable, no acute distress HEENT-the patient resists opening of his eyes or mouth NECK-difficult to assess for nuchal rigidity as the patient does not allow passive movement of his head CV-regular rate and rhythm CHEST-clear to auscultation bilaterally ABD-soft, nontender with positive bowel sounds -no Graff EXT-no edema NEURO-obtunded, arouses to noxious stimuli. Resists passive movement of arms and legs SKIN-warm and dry and without rashes Results - Labs CBC & Chem 7: 08/27/17 04:07 08/27/17 04:07 Assessment and Plan (1) Acute encephalopathy Current visit: Yes Status: Acute (2) Hypernatremia Current visit: Yes Status: Acute Assessment and Plan: Assessment Acute encephalopathy/obtundation since fall one day prior to admission Dementia progressing Multiple myeloma (Sees Dr. Christie, but had not seen since prior to his move to [place] and return to [place]). Discussed with Dr. Christie on 08/26/2017 and he stated that as long as he continues to be encephalopathic, there is no other treatment he would recommend for multiple myeloma and he would recommend consideration for palliative care. Hypernatremia (POA) -resolved (He does run chronically high at least since Sep 2016) Hypercalcemia (POA) -resolved post-pamidronate Elevated uric acid -resolved with Raspirucase, allopurinol started 08/26/2017 Uncontrolled hypertension-improved with Norvasc Multiple falls -Unclear etiology, weakness? Pancytopenia-chronic Chronic kidney disease stage 4 -creatinine currently 1.9 down from 3.4 on admission (Sees Dr. Mcnamara) Cardiomyopathy -EF 40% in Sep 2016 Plan EEG done yesterday shows an abnormal awake and drowsy EEG. Evidence of severe metabolic encephalopathy. No evidence of seizure activity during the recording. Blood pressure has improved with Norvasc 5 mg daily added to Coreg and hydralazine. Ativan discontinued yesterday. Will make Risperdal when necessary Continue IV fluids for poor by mouth intake Scheduled Tylenol started yesterday for low back pain. Continue Risperdal Platelets stable with Lovenox for DVT prophylaxis. I called and talked with the patient's son, Beto who is DURABLE [employer]OWER [employer]. I updated him on current findings. We discussed the results of EEG and Dr. Banks's recommendations. We discussed the pros and cons of undergoing lumbar puncture to look for multiple myeloma or infection in the spinal fluid. Beto has decided against having his father undergo lumbar puncture. We discussed further options including palliative care and/or hospice consultation. He would like to proceed with consulting hospice. I did call and talk with Ibeth, heel caser and she will call and talk with Beto regarding hospice options. Continue with current treatments for now. Greater than 40 minutes of time spent seeing and evaluating the patient, talking with the patient's DPOA, talking with case management, and determining care plan. Hospital Course Summary Disclaimer: The visit summary below is not to be considered part of the above Progress Note. Hospital Course: Acute encephalopathy Dementia Hypernatremia, POA (He does run chronically high at least since Sep 2016) Uncontrolled hypertension Multiple falls -Unclear etiology, weakness? Pancytopenia-chronic Multiple myeloma (Sees Dr. Christie) Chronic kidney disease stage 4 (Sees Dr. Mcnamara) Cardiomyopathy -EF 40% in Sep 2016 08/17/17-hospital admission Initially admit outpatient observation under the care of Dr Wallace for cephalopathy, multiple falls and hypernatremia. Obtain a CT scan of the head. Given multiple unwitnessed falls, accompanied with an acute encephalopathy and uncontrolled hypertension to rule out intracranial abnormality or bleeding. Regarding hypernatremia. Will place patient on half-normal saline at 100 ML per hour for gentle hydration. Will resume home antihypertensive medications including hydralazine 10 milligrams 3 times a day, isosorbide 10 milligrams 3 times a day. Monitor blood counts. Acute thrombocytopenia- PLT on admission 82. Chronic pancytopenia related to multiple myeloma Consult speech therapy to evaluate swallow given weakness and encephalopathy Consider PT/OT screen once more medially stable given weakness and multiple falls. Again, patient is a do not resuscitate and this orders written Recheck CBC and BMP tomorrow morning to follow blood counts, renal function and electrolytes Discuss with case management. Patient does meet criteria to change to inpatient status given. Acute encephalopathy, accompanied with chronic kidney disease and uncontrolled hypertension. Will change status to inpatient. 08/18/17 Isordil TID changed to imdur qd (for better compliance) Would like to see if we could get him off hydralazine Check orthostatic BP's given the multiple falls 08/19/17 As not taking po, will start IVF's - 1/2NS at 75 mls/hr. Coreg added 08/17/17. BP's are better, but not consistently to goal. Continue to monitor. 08/20/[address] Christie. Reviewed status and lab. Recommends pamidronate 90mg for hypercalcemia - pharm will have to order in, anticipate giving tomorrow. Recommends raspuricase for elevated uric acid - with give 7.5mg IV daily for 3 days Agrees with Solu-Cortef pulse dose - can continues for 4 days, does not need taper. Serum free light chain immunoassay for evaluation of multiple myeloma. Dr Christie's input greatly appreciated. Sodium still with elevation at 147 - will increase 1/2NS to 125cc/hr and monitor. Creatinine stable at 2.7. With above treatments, hope to see improvement of his encephalopathy. Patient more awake this morning and able to take some intake. 08/21/17 Mentation not improving-not interacting verbally and no able to take oral. Sodium did decrease to 145. Creatinine with slight decrease to 2.4. Uric acid with significant decrease post raspuricase yesterday. Will hold on remaining doses for not. Pamidronate given today for hypercalcemia. Change IVF to 1/2NS with 20 KCL as potassium with decrease to 3.4. Persistent encephalopathy worrisome. Hope with treatments will improve, but with decline noted I'm not optimistic. Discussed with dejan. Continue lab monitoring. 08/22/17 Sodium normalized to 144. Calcium decrease to 9.7. Potassium 3.6. Uric acid undetectable. Mentation with overall little improvement - verbalizes some, but still encephalopathic. Will try B12 injections to see if this helps. Check Vit B12 level. Will try holding risperidone at night to see if stopping this medication helps improve his encephalopathy. Continue Solu-Cortef. Continue IVF for support. Discussed case with patient's son - lack of improvement worrisome. Potentially need Hospice if not seeing improvement. 08/23/17 Sodium 142. Calcium 9.0. Potassium 3.6. Creatinine 1.9. Vitamin B12 low normal at 274. Variable mentation, not seeing sustained improvement. Increased restlessness and agitation last night with holding risperidone-Haldol given. Will restart risperidone at 0.25mg (home dose 0.5mg). Continue IM Vit B12 as level low normal. Day #2. Decrease IVF to 100cc/hr - 1/2NS with 20KCl Continue Solu-Cortef - today would be 4th day. Short course recommended by ONC, no taper needed. Discussed with dejan about minimal gains - likely need to consider hospice care if no improvements made. 08/24/17 Sodium 142. Calcium 8.6. Potassium 3.5. Creatinine 2.0. Uric acid 1.3. Slight increased mentation yesterday evening. Unfortunately given Haldol and very somnolent this am. With use of Haldol at night for restlessness, difficult to determine if encephalopathy clearing. Will return risperidone to 0.5mg home dose - Avoid high doses of Haldol Attempt potassium 10 mEq and MagOx 400mg today. Continue Solu-Cortef - today would be 5th day. Add Lovenox for DVT prevention as not wearing SCDs. 08/25/17 Sodium 145. Calcium 8.6. Potassium 3.7. Creatinine 1.9. Uric acid 2.0. Increase in alertness this morning. Able to talk more and keep eyes open longer. Continue Solu-Cortef - today would be 6th day. Continue 1/2NS with potassium to maintain hydration. Platelets stable with Lovenox. Improving mentation encouraging. Hope to see continued gains. Possible be able to undergo skilled at discharge. Still have concern for need for hospice care if gains are not sustainable. 08/26/2017 Plan Chart reviewed, labs reviewed, radiology reviewed. Sodium 144. Calcium 8.4. Potassium 3.7. Creatinine 1.8. Uric acid 2.7. Still significantly encephalopathic today. Cannot follow commands. A well yesterday, but not eating today. Discussed at length today with Dr. Christie, patient's oncologist. He recommended discontinuation of Solu-Cortef. He recommended starting allopurinol to control uric acid. He stated that the patient has advanced multiple myeloma and has undergone multiple treatments including bone marrow transplant. He stated that he would not recommend any further treatment if the patient's confusion does not improve. He stated he would consider palliative care if encephalopathy is not improving. Platelets stable with Lovenox for DVT prophylaxis. Minimize use of Ativan. Continue Resporal in the evenings. Consider neurology consult. Continue current antihypertensives and when necessary hydralazine. If blood pressure does not improve off of Solu-Cortef, may need to increase scheduled antihypertensives. Repeat CBC and renal panel tomorrow. Start IV thiamine Time spent with patient care over 35 minutes. 08/27/2017 Plan The patient reportedly had an episode of lucidity last night but is obtunded and encephalopathic again today. Discussed with Dr. Banks who did come and evaluate the patient. He recommended EEG. EEG was done this afternoon and results are pending. We'll start Norvasc 5 mg daily for hypertension Continue IV fluids for poor by mouth intake discontinue Ativan Start scheduled Tylenol for possible pain Continue Risperdal Platelets stable with Lovenox for DVT prophylaxis. Repeat CBC and renal panel tomorrow. Discussed at length with Ivonne, patient's fianc. I also called and talked with Beto, patient's son and DPOA and updated him. I discussed with him Dr. Christie's recommendation. At this time, we will await results of EEG and see if the patient will start to improve. Time spent with patient care over 35 minutes.
[2017-08-28] MEDS: SERTRALINE 25 MG TABLET PO SCH (20:31)
[2017-08-28] MEDS: MORPHINE SULFATE 10mg/0.5ml ORAL LIQ SL PRN (22:43)
[2017-08-28] MEDS: LORazepam INTENSOL 1mg/0.5ml ORAL LIQUID SL PRN (23:36)
[2017-08-29] MEDS: MORPHINE SULFATE 10mg/0.5ml ORAL LIQ SL PRN (04:24)
[2017-08-29] MEDS: LORazepam INTENSOL 1mg/0.5ml ORAL LIQUID SL PRN (04:26)
[2017-08-29] MEDS: MORPHINE SULFATE 10mg/0.5ml ORAL LIQ SL SCH ×2 (09:43→22:16)
[2017-08-29] MEDS: RisperiDONE 0.5 MG TABLET PO SCH ×3 (09:43→22:16)
[2017-08-29] MEDS: ACETAMINOPHEN 325 MG TABLET PO SCH ×3 (09:43→22:14)
[2017-08-29] MEDS ORDERED: BISACODYL 10 MG SUPPOSITORY RECTALLY PRN (14:56)
--- NOTE | 2017-08-29 16:28 | Progress Note ---
- Date 08/29/17 Subjective: The patient is seen in his room accompanied by his fiance and his son, Beto. Beto and other family members decided for inpatient hospice last night. Hospice was consulted. Patient is lying in bed and is minimally responsive to voice. He shows an attempt to open his eyes to his name being called but otherwise is responsive only to noxious stimuli. His nurse states he has eaten very little today. He has appeared comfortable and has not required when necessary pain or anxiety medications. Objective Vital signs: Temperature 97.3 F 08/29/17 08:00 Pulse Rate 51 L 08/29/17 08:00 Respiratory Rate 22 08/29/17 00:00 Blood Pressure 126/74 08/29/17 08:00 Pulse Oximetry 96 08/29/17 08:00 Height/Weight/BMI: Weight 69.3 kg Comments: On exam he is minimally responsive. Eyes are closed. Chest is clear to auscultation. He has Javi-Kohler respiratory pattern. Cardiovascular reveals an irregularly irregular rhythm. Heart rate is in the 60s. O2 sat ranges from 88 -94%, on room air. Abdomen is soft and nontender. Extremities are free of edema. Peripheral pulses are palpable. No obvious mottling. Hands and feet are warm and dry Results - Labs CBC & Chem 7: 08/29/17 08:46 08/29/17 08:46 Assessment and Plan (1) Acute encephalopathy Current visit: Yes Status: Acute (2) Hypernatremia Current visit: Yes Status: Acute Assessment and Plan: Assessment Acute encephalopathy/obtundation since fall one day prior to admission Dementia progressing Multiple myeloma (Sees Dr. Christie, but had not seen since prior to his move to [place] and return to [place]). Discussed with Dr. Christie on 08/26/2017 and he stated that as long as he continues to be encephalopathic, there is no other treatment he would recommend for multiple myeloma and he would recommend consideration for palliative care. Hypernatremia (POA) -resolved (He does run chronically high at least since Sep 2016) Hypercalcemia (POA) -resolved post-pamidronate Elevated uric acid -resolved with Raspirucase, allopurinol started 08/26/2017 Uncontrolled hypertension-improved with Norvasc Multiple falls -Unclear etiology, weakness? Pancytopenia-chronic Chronic kidney disease stage 4 -creatinine currently 1.9 down from 3.4 on admission (Sees Dr. Mcnamara) Cardiomyopathy -EF 40% in Sep 2016 Plan Family decided yesterday to initiate inpatient hospice. Medications that are not contributing to comfort were discontinued. Currently, the patient appears comfortable. He does have Javi-Kohler respirations. Family was encouraged to notify his nurse if he appears uncomfortable. Hospital Course Summary Disclaimer: The visit summary below is not to be considered part of the above Progress Note. Hospital Course: Acute encephalopathy Dementia Hypernatremia, POA (He does run chronically high at least since Sep 2016) Uncontrolled hypertension Multiple falls -Unclear etiology, weakness? Pancytopenia-chronic Multiple myeloma (Sees Dr. Christie) Chronic kidney disease stage 4 (Sees Dr. Mcnamara) Cardiomyopathy -EF 40% in Sep 2016 08/17/17-hospital admission Initially admit outpatient observation under the care of Dr Wallace for cephalopathy, multiple falls and hypernatremia. Obtain a CT scan of the head. Given multiple unwitnessed falls, accompanied with an acute encephalopathy and uncontrolled hypertension to rule out intracranial abnormality or bleeding. Regarding hypernatremia. Will place patient on half-normal saline at 100 ML per hour for gentle hydration. Will resume home antihypertensive medications including hydralazine 10 milligrams 3 times a day, isosorbide 10 milligrams 3 times a day. Monitor blood counts. Acute thrombocytopenia- PLT on admission 82. Chronic pancytopenia related to multiple myeloma Consult speech therapy to evaluate swallow given weakness and encephalopathy Consider PT/OT screen once more medially stable given weakness and multiple falls. Again, patient is a do not resuscitate and this orders written Recheck CBC and BMP tomorrow morning to follow blood counts, renal function and electrolytes Discuss with case management. Patient does meet criteria to change to inpatient status given. Acute encephalopathy, accompanied with chronic kidney disease and uncontrolled hypertension. Will change status to inpatient. 08/18/17 Isordil TID changed to imdur qd (for better compliance) Would like to see if we could get him off hydralazine Check orthostatic BP's given the multiple falls 08/19/17 As not taking po, will start IVF's - 1/2NS at 75 mls/hr. Coreg added 08/17/17. BP's are better, but not consistently to goal. Continue to monitor. 08/20/[address] Christie. Reviewed status and lab. Recommends pamidronate 90mg for hypercalcemia - pharm will have to order in, anticipate giving tomorrow. Recommends raspuricase for elevated uric acid - with give 7.5mg IV daily for 3 days Agrees with Solu-Cortef pulse dose - can continues for 4 days, does not need taper. Serum free light chain immunoassay for evaluation of multiple myeloma. Dr Christie's input greatly appreciated. Sodium still with elevation at 147 - will increase 1/2NS to 125cc/hr and monitor. Creatinine stable at 2.7. With above treatments, hope to see improvement of his encephalopathy. Patient more awake this morning and able to take some intake. 08/21/17 Mentation not improving-not interacting verbally and no able to take oral. Sodium did decrease to 145. Creatinine with slight decrease to 2.4. Uric acid with significant decrease post raspuricase yesterday. Will hold on remaining doses for not. Pamidronate given today for hypercalcemia. Change IVF to 1/2NS with 20 KCL as potassium with decrease to 3.4. Persistent encephalopathy worrisome. Hope with treatments will improve, but with decline noted I'm not optimistic. Discussed with dejan. Continue lab monitoring. 08/22/17 Sodium normalized to 144. Calcium decrease to 9.7. Potassium 3.6. Uric acid undetectable. Mentation with overall little improvement - verbalizes some, but still encephalopathic. Will try B12 injections to see if this helps. Check Vit B12 level. Will try holding risperidone at night to see if stopping this medication helps improve his encephalopathy. Continue Solu-Cortef. Continue IVF for support. Discussed case with patient's son - lack of improvement worrisome. Potentially need Hospice if not seeing improvement. 08/23/17 Sodium 142. Calcium 9.0. Potassium 3.6. Creatinine 1.9. Vitamin B12 low normal at 274. Variable mentation, not seeing sustained improvement. Increased restlessness and agitation last night with holding risperidone-Haldol given. Will restart risperidone at 0.25mg (home dose 0.5mg). Continue IM Vit B12 as level low normal. Day #2. Decrease IVF to 100cc/hr - 1/2NS with 20KCl Continue Solu-Cortef - today would be 4th day. Short course recommended by ONC, no taper needed. Discussed with dejan about minimal gains - likely need to consider hospice care if no improvements made. 08/24/17 Sodium 142. Calcium 8.6. Potassium 3.5. Creatinine 2.0. Uric acid 1.3. Slight increased mentation yesterday evening. Unfortunately given Haldol and very somnolent this am. With use of Haldol at night for restlessness, difficult to determine if encephalopathy clearing. Will return risperidone to 0.5mg home dose - Avoid high doses of Haldol Attempt potassium 10 mEq and MagOx 400mg today. Continue Solu-Cortef - today would be 5th day. Add Lovenox for DVT prevention as not wearing SCDs. 08/25/17 Sodium 145. Calcium 8.6. Potassium 3.7. Creatinine 1.9. Uric acid 2.0. Increase in alertness this morning. Able to talk more and keep eyes open longer. Continue Solu-Cortef - today would be 6th day. Continue 1/2NS with potassium to maintain hydration. Platelets stable with Lovenox. Improving mentation encouraging. Hope to see continued gains. Possible be able to undergo skilled at discharge. Still have concern for need for hospice care if gains are not sustainable. 08/26/2017 Plan Chart reviewed, labs reviewed, radiology reviewed. Sodium 144. Calcium 8.4. Potassium 3.7. Creatinine 1.8. Uric acid 2.7. Still significantly encephalopathic today. Cannot follow commands. A well yesterday, but not eating today. Discussed at length today with Dr. Christie, patient's oncologist. He recommended discontinuation of Solu-Cortef. He recommended starting allopurinol to control uric acid. He stated that the patient has advanced multiple myeloma and has undergone multiple treatments including bone marrow transplant. He stated that he would not recommend any further treatment if the patient's confusion does not improve. He stated he would consider palliative care if encephalopathy is not improving. Platelets stable with Lovenox for DVT prophylaxis. Minimize use of Ativan. Continue Resporal in the evenings. Consider neurology consult. Continue current antihypertensives and when necessary hydralazine. If blood pressure does not improve off of Solu-Cortef, may need to increase scheduled antihypertensives. Repeat CBC and renal panel tomorrow. Start IV thiamine Time spent with patient care over 35 minutes. 08/27/2017 Plan The patient reportedly had an episode of lucidity last night but is obtunded and encephalopathic again today. Discussed with Dr. Banks who did come and evaluate the patient. He recommended EEG. EEG was done this afternoon and results are pending. We'll start Norvasc 5 mg daily for hypertension Continue IV fluids for poor by mouth intake discontinue Ativan Start scheduled Tylenol for possible pain Continue Risperdal Platelets stable with Lovenox for DVT prophylaxis. Repeat CBC and renal panel tomorrow. Discussed at length with Ivonne, patient's fianthony. I also called and talked with Beto, patient's son and DPOA and updated him. I discussed with him Dr. Christie's recommendation. At this time, we will await results of EEG and see if the patient will start to improve. Time spent with patient care over 35 minutes. 08/28/2017 Plan EEG done yesterday shows an abnormal awake and drowsy EEG. Evidence of severe metabolic encephalopathy. No evidence of seizure activity during the recording. Blood pressure has improved with Norvasc 5 mg daily added to Coreg and hydralazine. Ativan discontinued yesterday. Will make Risperdal when necessary Continue IV fluids for poor by mouth intake Scheduled Tylenol started yesterday for low back pain. Continue Risperdal Platelets stable with Lovenox for DVT prophylaxis. I called and talked with the patient's son, Beto who is D[employer]ABLE P[employer]. I updated him on current findings. We discussed the results of EEG and Dr. Banks's recommendations. We discussed the pros and cons of undergoing lumbar puncture to look for multiple myeloma or infection in the spinal fluid. Beto has decided against having his father undergo lumbar puncture. We discussed further options including palliative care and/or hospice consultation. He would like to proceed with consulting hospice. I did call and talk with Ibeth, rn case management and she will call and talk with Beto regarding hospice options. Continue with current treatments for now. Greater than 40 minutes of time spent seeing and evaluating the patient, talking with the patient's DPOA, talking with case management, and determining care plan.
[2017-08-30] MEDS: LORazepam INTENSOL 1mg/0.5ml ORAL LIQUID SL PRN ×2 (03:12→12:48)
[2017-08-30 07:16] VITALS: BP 100/74; PULSE 86; RESP 20; TEMP 98.2; O2SAT 93
[2017-08-30] MEDS: RisperiDONE 0.5 MG TABLET PO SCH (08:37)
[2017-08-30] MEDS: MORPHINE SULFATE 10mg/0.5ml ORAL LIQ SL SCH (08:37)
--- NOTE | 2017-08-30 10:09 | Discharge Summary ---
<Ruthie Vaughan Zita - Last Filed: 08/30/17 10:05> Discharge Information Date of admission: 08/17/17 15:46 Anticipated date of discharge: 08/30/17 Attending Physician: Evon Strickland MD Consults: Consulting Provider: Ina Banks - Discharge Diagnosis (1) Acute encephalopathy Status: Acute Acute encephalopathy/obtundation since fall one day prior to admission Dementia progressing Multiple myeloma - palliative care recommended - Procedures Procedures: EEG 08/29/17 Abnormal awake and drowsy EEG. Evidence of severe metabolic encephalopathy. No evidence of seizure activity during the recording - Laboratory Labs: 08/29/17 08:46 08/29/17 08:46 - Radiology Radiology: Date of Exam: 08/17/17 CT head/brain without contrast FINDINGS: Mild atrophy. The ventricles are of normal size, shape, and configuration for the patient's age. There is no evidence of acute intracranial hemorrhage, midline displacement, or mass effect. There are scattered areas of low attenuation in the white matter which most likely represent changes of chronic microvascular ischemia. The CT attenuation of the brain parenchyma is otherwise normal within the cerebellum, brain stem, and cerebral hemispheres. The tympanic cavities and mastoid air cells are free of appreciable disease. There are no definite fractures of the skull base, calvarium, or visualized portion of the midface. IMPRESSION: No CT evidence of acute traumatic intracranial injury. Date of Exam: 08/26/17 MR head/brain without contrast FINDINGS: Evaluation limited by motion artifact. No restricted diffusion is seen to suggest recent ischemic infarction. T2/FLAIR hyperintensities within the deep white matter, a nonspecific finding, however most commonly related to chronic small vessel ischemic disease. The normal benson-white matter differentiation is maintained. No intra-axial or extra-axial mass or hemorrhage seen. No mass effect or midline shift. No abnormal postcontrast enhancement. Symmetric prominence of the ventricles and cerebral sulci most consistent with age- related generalized cerebral volume loss. The ventricles are otherwise normal in shape and configuration without evidence of hydrocephalus. The basilar cisterns are patent. Normal flow void seen within the intracranial arterial and venous structures indicating patency. The paranasal sinuses and mastoid air cells are well-aerated. The orbits and globes appear normal. IMPRESSION: 1. No acute abnormalities of the brain identified by MRI. 2. Age-related generalized cerebral volume loss and chronic small vessel ischemic disease. History of Present Illness HPI: Mr Mendoza is a 82 yr old male who recently moved from [place] to [facility] last week. He is currently residing with his fiance at [facility] in the independent apartments. Over the past 4 days he has had 3 different falls and has developed increased weakness with encephalopathy over the last 24 hours. Patient was seen in the emergency room following a fall on 08/13. 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 Patient was discharged home, however, proceeded to fall again this morning. At this time. His significant other was unable to assist him to get up. She called EMS. Patient was brought back to the emergency room today for acute evaluation and treatment. Basic laboratory studies are obtained, WBC count is low at 4.1, RBCs 2.62, hemoglobin 9.3, hematocrit 28.5, platelet count 82. Sodium was found to be elevated at 148, potassium 3.7, BUN 59 , creatinine 3.4. This is not far from patient's baseline as he does have known history of chronic kidney disease. On arrival to the emergency room this morning. His blood pressure was 202/116. Blood pressure was consistently elevated and at time of admission, remains 189/139. On physician exam , Mr Mendoza is alert with eyes open, however, is unable to answer questions appropriately. When asked if he hurts he began to talk about "curtains". Family report this is not his normal mental status. Normally he is able to carry on a normal conversation even with hx of dementia. Significant other is unable to give any health history. Spoke with daughter- Gladys Hightower- DPOA- [phone] and Son- Beto Mendoza- [facility]- [phone]. Both report that they were talking with [facility] staff, Brinda Rahman about admission to the [facility] a program for rehabilitation and strengthening. Daughter did report that pt is DNR. Objective Vital signs: Temperature 98.2 F 08/30/17 07:15 Pulse Rate 86 08/30/17 07:15 Respiratory Rate 20 08/30/17 07:15 Blood Pressure 100/74 08/30/17 07:15 Pulse Oximetry 93 08/30/17 07:15 Height/Weight/BMI: Weight 67.7 kg - Constitutional Present: no acute distress, thin - Routine HEENT Exam ENT: Present: mucous membranes dry - Routine Respiratory Exam Comments: snoring respirations - Routine Cardiovascular Exam Present: irregularly irregular - Routine Abdominal Exam Present: soft - Routine Extremities Exam Present: no edema - Routine Skin Exam Present: dry, warm - Routine Neurological Exam Absent: alert (unresponsive) Hospital Course This is a general summary of the patient's hospital course. For more details refer to the complete medical record. Hospital course: DISCHARGE DIAGNOSES Acute encephalopathy/obtundation since fall one day prior to admission Dementia progressing Multiple myeloma - Dr. Christie recommends palliative care. Hypernatremia (POA) - resolved (He does run chronically high at least since Sep 2016) Hypercalcemia (POA) - resolved post-pamidronate Elevated uric acid -resolved with Raspirucase, allopurinol started 08/26/2017 Uncontrolled hypertension Multiple falls Pancytopenia - chronic Chronic kidney disease stage 4 - 3.4 on admission (Sees Dr. Mcnamara) Cardiomyopathy -EF 40% in Sep 2016 HOSPITAL COURSE Mr. Mendoza was admitted on 08/17/17 for encephalopathy, multiple falls, and hypernatremia. CT head was negative for acute findings. He was started on IVF for hypernatremia. He had uncontrolled HTN, and home meds were resumed, plus Coreg was added soon after admission. Norvasc was also introduced on 08/27/17. On 08/19/17 he was somnolent and still encephalopathic, and unable to take in oral well. IV steroids were trialed given possibility of MM progression and continued for a 4-day burst. The case was discussed with Dr. Christie, who recommended pamidronate for hypercalcemia and raspuricase for elevated uric acid level. Both calcium and uric acid levels responded well. In addition, a serum free light chain immunoassay was drawn - free kappa light chains were high at 352; free lambda light chain was 0.5740 and the kappa/lambda ratio was 613 (high). He was started on IM Vitamin B12 for a borderline low vitamin B12 level. We started to see an improvement in mental status on the , but this was short-lived and by the following day there was a decline. We again saw a couple more transient improvements in his cognition. Despite an improvement in renal function and sodium levels, his mentation did not show lasting improvement. Sedating medications were minimized and/or held, but this did not impact his level of somnolence. In fact, he did require PRN dose of Haldol for restlessness. The hospitalist service discussed the worrisome findings many days , and on 08/[address] Christie was updated on 08/26/17 and reported that given his encephalopathy, palliative care would be the most appropriate treatment course. Dr. Banks saw Mr. Mendoza on 08/27/17, and his assessment was metabolic encephalopathy and recommended medical management, EEG , hydration, and management of chronic conditions. The EEG was abnormal, showing evidence of severe metabolic encephalopathy; no seizure activity during the recording. Lumbar puncture was considered but family decided against another test and requested hospice consultation. He was examined by [facility] on 08/29/17. Mr. Mendoza was only responsive to noxious stimuli and was exhibiting Javi-araiza respirations. He received lorazepam and morphine PRN for comfort care. Hospice care will continue at [facility]. He was discharged from the hospital on 08/30/17. Time spent with patient: discharge greater than 30 minutes Discharge Plan - Discharge Disposition Discharge Date: 08/30/17 Disposition: 04 To [facility] Home/Facility *Condition: Stable Reason For Visit (Visit label in EMR): acute encephalopathy - Discharge Medications *Discharge Medications: New Morphine Sulfate Oral Liq [Roxanol Oral Liq] 5 mg SL BID #8 syringe Morphine Sulfate Oral Liq [Roxanol Oral Liq] 10 mg SL Q1H PRN #8 syringe PRN Reason: Agitation/Air Hunger/Pain LORazepam INTENSOL [Ativan Intensol] 1 mg SL Q2H PRN #30 ml PRN Reason: Agitation/Restlessness RisperiDONE [RisperDAL] 0.5 mg PO TID tab Discontinued raNITIdine HCl [Ranitidine HCl] 150 mg PO HS #0 Calcitriol [Rocaltrol] 0.25 mcg PO DAILY #0 risperiDONE [Risperdal] 0.5 mg PO BID #0 Sertraline [Zoloft] 25 mg PO HS Hydralazine [Apresoline] 10 mg PO TID Docusate Sodium 100 mg PO BID CALCIUM CARBONATE Chewable [Tums] 500 mg PO AM Omeprazole 40 mg PO ACB #0 Acyclovir 400 mg PO DAILY #0 Isosorbide Dinitrate 10 mg PO TID CALCIUM CARBONATE Chewable [Tums] 500 mg PO AM - Discharge Packet/Instructions *Diet: NPO; good oral care; may offer sips/ice if he is awake, able to follow directions, and not at high risk for aspiration *Activity: Comfort care *Pain Management/Treatment: morphine *Wound Care: dressing to left arm *Expected Signs/Symptoms: end-of-life care; monitor breathing; mentation; may have periods of restlessness/agitation *Notify Physician if: uncontrolled agitation or symptoms. *During Business Hours Contact: general activities therapist *After Business Hours Contact: on-call hospice home care coordinator *Pending Lab/Results: No Pending Lab - Referrals/Follow Up *Referrals/Follow Up: Rainer Christie MD [Physician] - Meche Gutiérrez MD [Physician] - 3 Days (On hospice) - Patient Handouts Patient Handouts: Encephalopathy (GEN) - Dismissal Complete Discharge Instructions are:: Complete <Jesus Kennedy - Last Filed: 08/30/17 11:55> Discharge Information Date of admission: 08/17/17 15:46 Attending Physician: Evon Strickland MD Primary care physician: Rivera Live MD Consults: 08/19/17 11:31 Doctor [Physician Consult] [CONS] Routine Consulting Provider: Giana Oliva Reason For Exam: skilled orders Ordering Provider has Notified Professor Of Economics: Yes 08/26/17 13:36 Physician Consult [CONS] Routine Consulting Provider: Ina Banks Reason For Exam: encephalopathy Ordering Provider has Notified Professor Of Economics: Yes Comment: I will notify 08/30/17 08:57 Physician [Physician Consult] [CONS] Routine Consulting Provider: Mai Laura Reason For Exam: cont care Ordering Provider has Notified Professor Of Economics: Yes - Discharge Diagnosis (1) Acute encephalopathy Status: Acute - Laboratory Labs: 08/29/17 08:46 08/29/17 08:46 Objective Vital signs: Temperature 98.2 F 08/30/17 07:15 Pulse Rate 86 08/30/17 07:15 Respiratory Rate 20 08/30/17 07:15 Blood Pressure 100/74 08/30/17 07:15 Pulse Oximetry 93 08/30/17 07:15 Height/Weight/BMI: Weight 67.7 kg Hospital Course This is a general summary of the patient's hospital course. For more details refer to the complete medical record. Attestation Narriative - Attestation Attestation Narrative: 08/30/17 11:52 I have independently interviewed and examined patient prior to discharge. Chart reviewed. Case discussed with CM and my FOURTH HAND. Care plan developed with my supervision; agree with above. Resting in bed. Family at bedside. Will move ext spontaneously, but not open eyes or communicate verbally. Lungs: clear CV: regular AB: soft nt/nd MSE: somnolent, nonverbal. Plan: Will discharge to with [facility] care. Condition terminal. See orders for details. Emotional support given to family. Time spent with patient care and discharge greater than 30 minutes.
[2017-08-30] MEDS: ACETAMINOPHEN 325 MG TABLET PO SCH (10:26)
--- NOTE | 2017-08-30 11:03 | Extended Care Facility Orders ---
Admission Orders Admit to:: Hospice Allergies/Adverse Reactions: Allergies Penicillins Allergy (Unknown, Verified 08/17/17 11:13) Admitting Diagnosis: encephalopathy; multiple myeloma Admitting Physician: Evon Strickland MD Attending Physician: Evon Strickland MD Code Status: Do Not Resuscitate Anticiapted Length of Stay: 30 days or less Rehab Potential: poor Rehab Prognosis: poor Diet: NPO If he wakes up, is able to follow directions, and is not high-risk for aspiration, may provide sips/chips, syrup thick liquids and pureed foods. May use Facility Protocol or Standing Orders: Yes May have flu vaccine: No Senior Care Certification: I certify that SNF services are required to be given on an Inpatient basis because of the patient's need for alf care on a continuing basis for the condition(s) for which he received inpatient hospital services prior to his transfer to the SNF. SNF inpatient care is necessary for the following reasons Indication for Senior Care: Not Applicable - Additional Information In Event of Arrest: Do Not Start CPR Resident is Aware of Diagnosis: No Referrals: Meche Gutiérrez MD [Physician] - 3 Days (On hospice) Rainer Christie MD [Physician] -
[2017-08-30] MEDS: SALINE FLUSH 10ml SYRINGE IV PRN (12:49)
== END 2017-08-30 13:17 | disposition hospice, home (50) | DRG 71 ==
LOC: MED 10:45 → ED 10:45 → MED 15:05 → SUATTDRO 15:46
PROVIDERS: ADMIT Internal Medicine Cardiovascular Disease; ATTEND Internal Medicine